=== PATIENT | male | born 1995 | race African-American/Black ===

== ENCOUNTER 2016-09-25 13:32 | Inpatient (IN) | payer BC, OTHER ==
[~2016-09-25] VITALS: Ht 180.3 cm; Wt 68.3 kg
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
[2016-09-25 15:30] LABS: BASO % 0.1 %; BASO ABS # 0.01 K/uL (0-0.2); COMPLETE YES; EOS % 0.1 %; HEMATOCRIT 43.7 % (42-52); IG% 0.1 %; LYMPH % 10.8 %; LYMPH ABS # 0.86 K/uL (1.2-3.4); MEAN CELL VOLUME 89.2 fL (80-100); MEAN CORPUSCULAR HEMOGLOBIN 32.4 pg (25-34); MEAN CORPUSCULAR HGB CONC 36.4 g/dl (32-36); MEAN PLATELET VOLUME 10.9 fL (7.4-10.4); MONO % 8.2 %; NEUT % 80.7 %; PLATELET COUNT 232 K/uL (130-400); WHITE BLOOD COUNT 7.97 K/uL (4.8-10.8)
[2016-09-25 15:40] LABS: ACETAMINOPHEN < 2 ug/ml (10-30)
[2016-09-25 15:44] LABS: BUN/CREATININE RATIO 13.6 (10-20); CALCIUM 9.2 mg/dl (8.5-10.1); CREATININE 0.75 mg/dl (0.60-1.40)
[2016-09-25 15:54] LABS: ALB/GLOB RATIO 1.4 (0.9-2); THYROID STIMULATING HORMONE 0.727 uIu/ml (0.300-4.500)
[2016-09-25 18:00] LABS: BENZODIAZEPINE, URINE NEG (NEG); COCAINE,URINE NEG (NEG); PHENCYCLIDINE, URINE NEG (NEG)
[2016-09-25] MEDS ORDERED: MAGNESIUM HYDROXIDE SUSP 30 ML UDC PO PRN (20:00)
[2016-09-25] MEDS ORDERED: SODIUM CHLORIDE 0.65% NA SOLN 45 ML (OCEAN) PRN (20:00)
[2016-09-25] MEDS ORDERED: BISMUTH SUBSALICYLATE PER ML OMNICELL CHARGE PO PRN (20:00)
[2016-09-25] MEDS ORDERED: HALOPERIDOL 1 MG TAB PO PRN (20:00)
[2016-09-25] MEDS ORDERED: ALUMINUM/MAGNESIUM SUSP 30 ML UDC PO PRN (20:00)
[2016-09-25] MEDS ORDERED: hydrOXYzine HCL 25 MG TAB PO PRN ×2 (20:00)
[2016-09-25] MEDS ORDERED: ACETAMINOPHEN 325 MG TAB PO PRN (20:00)
[2016-09-25 20:32] VITALS: O2SAT 98
[2016-09-25 21:10] VITALS: BP 125/82; PULSE 90; TEMP 36.8; Ht 180.3 cm; Wt 68.3 kg
[2016-09-26 07:10] VITALS: BP_SYST 128; BP_SYST 132; BP_DIAS 75; BP_DIAS 84; PULSE 83; PULSE 95; TEMP 37.1
[2016-09-26] MEDS ORDERED: INFLUENZA VIRUS QUAD VACCINE 0.5 ML SYR IM. ONE (08:00)
[2016-09-26] MEDS ORDERED: INFLUENZA ADMINISTRATION CHARGE ONE (08:00)
[2016-09-26] MEDS ORDERED: BENZTROPINE MESYLATE 0.5 MG TAB PO PRN (09:15)
[2016-09-26] MEDS ORDERED: HALOPERIDOL 5 MG TAB ONE (09:26)
[2016-09-26] MEDS ORDERED: LORAZEPAM 2 MG TAB ONE (09:26)
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
[2016-09-26] MEDS: LORAZEPAM 2 MG TAB PO PRN (20:12)
[2016-09-26] MEDS: HALOPERIDOL 5 MG TAB PO PRN (20:12)
[2016-09-26] MEDS: RISPERIDONE ODT 1MG PO SCH (21:35)
[2016-09-27 06:09] LABS: CHOLESTEROL/HDL RATIO 2.2
[2016-09-27 07:00] VITALS: BP_SYST 104; BP_SYST 124; BP_DIAS 62; BP_DIAS 66; PULSE 111; PULSE 90; TEMP 36.6
--- NOTE | 2016-09-27 10:55 | Psychiatric Progress Notes ---
Progress Note Date of Service Sep 27, 2016. Interval History 21 yo male with first episode psychosis admit on 09/25/16 on 201 commitment. Chief Complaint "I don't want to talk right now". Subjective Patient was seen & assessed interval progress reviewed with nursing. Slept much of day yesterday following prns. Did take M tab last pm. Denies questions about it. Some drooling noted on pillow this am due to sedation. Was OOB with staff encouragement to eat dinner but required prompts to continue eating. Review of Systems Psych: denies symptoms other than stated above Constitutional: sedation Cardiovascular: denied GI: denied Neurologic: denied Remainder of 10 body systems also reviewed and denied other than noted above. Sleep Information Total Hours of Sleep: 7.00 Meal Information Percent of Breakfast Consumed: 0 Percent of Lunch Consumed: 0 Percent of Dinner Consumed: 0 Mental Status Exam During interview pt is: guarded Appearance: disheveled Eye contact is: poor Motor behavior is: psychomotor agitation Speech: other (non spontaneous) Affect: blunted Mood is: other (unable to describe) Thought process: blocking Thought content: paranoid Suicidal thought are: denied Homicidal thoughts are: denied Hallucinations: denies auditory, denies visual Cognition: other (impaired due to psychosis) Insight: severely impaired Judgement: severely impaired Impression 21 yo male with 1st episode psychosis, he is currently unable to care for himself outside of the hospital and acting out aggressively due to paranoia. He requires a medically necessary private room due to severity of psychosis and paranoia. Plan (1) Brief psychotic disorder prn Haldol and Ativan PO for acute calming effect will offer Risperdal 2 mg M tab tonight and further discuss risks/benefits/ alternatives when patient able to process. Not appropriate for visitors today. 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) Needs: outpatient treatment, antipsychotic medication Risk Factors Assessment Male: Yes /single/: Yes Mental Health Diagnoses: Yes Substance use disorders: No Previous attempt: No Family history of suicide: No Previous psychiatric stay: No Smoker: No Protective Factors Assessment Supportive family: Yes Data Vital Signs Last 24 Hrs: Date Time Temp Pulse Resp B/P Pulse Ox O2 Delivery O2 Flow Rate FiO2 09/27/16 07:00 36.6 90 18 104/66 111 124/62 Meds Administered Last 24 Hrs: Meds Administered (Past 24Hrs) Medications (Trade) Dose Ordered Sig/Gallito Route Start Time Stop Time Status Last Admin Dose Admin Haloperidol (Haldol Tab) 2 mg Q6 PRN PO 09/25/16 20:00 09/26/16 09:06 DC 09/26/16 08:43 2 MG Haloperidol (Haldol Tab) 5 mg Q6 PRN PO 09/26/16 09:15 10/26/16 09:14 09/26/16 20:12 5 MG Lorazepam (Ativan Tab) 2 mg Q6 PRN PO 09/26/16 09:15 10/26/16 09:14 09/26/16 20:12 2 MG Risperidone (Risperdal M Tab) 2 mg HS PO 09/26/16 22:00 10/26/16 21:59 09/26/16 21:35 2 MG Haloperidol (Haldol Tab) 5 mg STK-MED ONCE .ROUTE 09/26/16 09:26 09/26/16 09:27 DC 09/26/16 09:27 5 MG Lorazepam (Ativan Tab) 2 mg STK-MED ONCE .ROUTE 09/26/16 09:26 09/26/16 09:27 DC 09/26/16 09:27 2 MG Lab Results Last 24 Hrs: Last 24 Hours Test 09/27/16 05:30 Fasting Glucose 88 mg/dl Triglycerides Level 47 mg/dl Cholesterol Level 126 mg/dl HDL Cholesterol 58 mg/dl LDL Cholesterol, Calculated 59 mg/dl VLDL Cholesterol, Calculated 9 mg/dl Cholesterol/HDL Ratio 2.2
[2016-09-27] MEDS: RISPERIDONE ODT 1MG PO SCH (21:17)
[2016-09-28 07:02] VITALS: BP_SYST 111; BP_SYST 123; BP_DIAS 76; BP_DIAS 81; PULSE 88; PULSE 96; TEMP 36.6
--- NOTE | 2016-09-28 11:35 | Psychiatric Progress Notes ---
Progress Note Date of Service Sep 28, 2016. Interval History 21 yo male with first episode psychosis admit on 09/25/16 on 201 commitment. Chief Complaint "I was distancing myself from my mother". Subjective Patient was seen & assessed interval progress reviewed with Treatment Team. Still reports seeing a "Dr. Clements" for therapy on [facility] or [facility]. Alludes to wanting to avoid mother as "probably evil", seemingly no memory of her coming to his apartment. Nonspecific paranoia re: coworkers--didn't want to go to holiday republican so stopped going to work. Sleep remains improved. He can interact briefly with staff but soon after is talking with himself in his room. 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 Also remains perseverative on grandmother's though now able to relate that she when he was 8 yo. Did attend group briefly. minimal dry mouth this am, taking PO. Appears less sedated and less restless than previously. Isn't really able to relate social relationships keeping him in [employer], avoidant of [place]. Review of Systems Psych: denies symptoms other than stated above Constitutional: denied Cardiovascular: denied GI: denied Neurologic: denied Sleep Information Total Hours of Sleep: 4.75 Meal Information Percent of Breakfast Consumed: 100 Percent of Lunch Consumed: 100 Percent of Dinner Consumed: 50 Mental Status Exam During interview pt is: cooperative (superficially) Appearance: disheveled Eye contact is: poor Motor behavior is: no abnormal motor movements (but still a bit restless) Speech: other (somewhat rambling, not pressured) Affect: blunted Mood is: other ("calmer now") Thought process: tangential Thought content: paranoid, delusions (re: family wanting to do him harm somehow ) Suicidal thought are: denied Homicidal thoughts are: denied Hallucinations: denies auditory, denies visual Cognition: other (impaired due to psychosis) Insight: severely impaired Judgement: severely impaired Impression 21 yo male with 1st episode psychosis, he is currently unable to care for himself outside of the hospital and acting out aggressively due to paranoia. He requires a medically necessary private room due to severity of psychosis and paranoia. Plan (1) Brief psychotic disorder jerzy Navarrete and Ativan PO for acute calming effect will offer Risperdal 2 mg M tab tonight and further discuss risks/benefits/ alternatives when patient able to process. Not appropriate for visitors today. 09/27/16--is sleeping, no longer hyperverbal, need to monitor for excessive sedation, may need to taper Risperdal to 1 mg qhs tomorrow 09/28/16--improving on Risperdal 2 mg, likes M tab formulation, reviewed metabolic screening labs. Reviewed indication with patient, he lacks understanding of his condition and is just starting to recover. No abnormal motor movements/EPS/akathisia. Baseline AIMS=0. Need to confirm outpatient provider and address family session to reality orient, patient unable to tolerate today due to ongoing psychosis. 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) Needs: outpatient treatment, antipsychotic medication Risk Factors Assessment Male: Yes /single/: Yes Mental Health Diagnoses: Yes Substance use disorders: No Previous attempt: No Family history of suicide: No Previous psychiatric stay: No Smoker: No Protective Factors Assessment Supportive family: Yes Data Vital Signs Last 24 Hrs: Date Time Temp Pulse Resp B/P Pulse Ox O2 Delivery O2 Flow Rate FiO2 09/28/16 07:02 36.6 88 16 111/81 96 123/76 Meds Administered Last 24 Hrs: Meds Administered (Past 24Hrs) Medications (Trade) Dose Ordered Sig/Gallito Route Start Time Stop Time Status Last Admin Dose Admin Risperidone (Risperdal M Tab) 2 mg HS PO 09/26/16 22:00 10/26/16 21:59 09/27/16 21:17 2 MG
[2016-09-28] MEDS: LORAZEPAM 2 MG TAB PO PRN (13:24)
[2016-09-28] MEDS: HALOPERIDOL 5 MG TAB PO PRN (13:24)
[2016-09-28] MEDS: RISPERIDONE ODT 1MG PO SCH (20:51)
[2016-09-29 06:53] VITALS: BP_SYST 124; BP_SYST 132; BP_DIAS 83; BP_DIAS 84; PULSE 65; PULSE 89; TEMP 36.5
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
[2016-09-29] MEDS: HALOPERIDOL 5 MG TAB PO PRN (10:44)
[2016-09-29] MEDS: LORAZEPAM 2 MG TAB PO PRN (10:44)
[2016-09-29] MEDS: RISPERIDONE ODT 1MG PO SCH (22:00)
[2016-09-30 06:36] VITALS: BP_SYST 103; BP_SYST 95; BP_DIAS 57; BP_DIAS 64; PULSE 85; PULSE 87; TEMP 36.9
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
[2016-09-30] MEDS ORDERED: NURSING VERBAL MED ORDER ONE (18:00)
[2016-09-30] MEDS ORDERED: LORAZEPAM 1 MG TAB PO PRN ×2 (18:15→18:30)
[2016-09-30] MEDS: RISPERIDONE ODT 1MG PO SCH (18:47)
[2016-10-01 06:39] VITALS: BP_SYST 126; BP_SYST 131; BP_DIAS 86; BP_DIAS 98; PULSE 88; PULSE 92; TEMP 36.7
[2016-10-01] MEDS ORDERED: RISPERIDONE ODT 0.5MG PO PRN (08:30)
--- NOTE | 2016-10-01 08:36 | Psychiatric Progress Notes ---
Progress Note Date of Service Oct 01, 2016. Interval History 21 yo male with first episode psychosis admit on 09/25/16 on a voluntary 201 commitment. He has submitted a 72 hour notice requesting to withdraw from treatment, and is refusing medication. Chief Complaint "I'm doing okay". Subjective Patient was seen & assessed interval progress reviewed with Treatment Team. Staff report he continues to respond to internal stimuli, talking and laughing inappropriately to himself, although he minimizes this when staff intervene. He continues to try to exit the unit, going to the doors when visitors come in. He continues to express paranoia about his mother and a male peer, whom he says he gets "bad vibes" from. He refused to attend groups yesterday, and at times refuses medication. He did take Risperdal last night with staff encouragement. He spoke to his father on the phone and a meeting with him was scheduled for Wednesday. Today he continues to refuse to rescind his 72 hour notice, saying he wants to leave. He says he will return to his apartment, but his roommate is out of town, and doesn't think he can return to work yet as "I still need to work some things out in my head." He says he prefers to do this "alone," then says he doesn't like to always be thinking about things alone. He continues to say he sees a therapist at [facility] [place] [place] who does not [place]. He does not want to have any contact with his mother and continues to blame her for his admission, saying she "just showed up, wasn't expecting her," but can't explain how that led to him being admitted to the hospital. He continues to focus on his belief that he is "an adult, so I can take care of myself." He says he will try to go to groups today, but feels "really bizarre, like cabin fever." He talks about a peer whom he believes has "bad energy, a bad vibe." He denies thoughts of harming himself or anyone else, but cannot describe how he would provide for his own basic needs outside the hospital, other than to say "I just need to process things on my own." Sleep Information Total Hours of Sleep: 6.25 Meal Information Percent of Breakfast Consumed: 100 Percent of Lunch Consumed: 90 Percent of Dinner Consumed: 25 Mental Status Exam During interview pt is: cooperative (superficially, answers are vague and brief ) Appearance: appropriately dressed Eye contact is: fair Motor behavior is: no abnormal motor movements Speech: normal in rate, rhythm & volume Affect: blunted Mood is: other ("okay") Thought process: tangential, looseness of associations, other (vague ansqwers to questions) Thought content: paranoid, delusions (that mother and male peer are evil, use magic) Suicidal thought are: denied Homicidal thoughts are: denied Hallucinations: denies auditory ( but appears to be responding to internal stimuli, talking and laughing to himself.), denies visual Cognition: other (impaired due to psychosis) Insight: severely impaired Judgement: severely impaired Impression The patient is adjusting to the support and structure of the milieu. His mood is good, but minimizing recent paranoia and psychosis. Required prn Haldol and Ativan, and refusing scheduled Risperdal. Unable to tolerate phone meeting with mother; will attempt to get supplemental information from sister and ? therapist (unclear if he really has a therapist or not). Will continue to gather information toward the need for further inpatient care as he has submitted a 72 hr notice to leave treatment. We are concerned that he remains psychotic and may need a longer hospitalization. Continued Inpatient Care The patient continues to require inpatient care due to the severity of his condition and inability to manipulate information in a reality based manner. Plan (1) Brief psychotic disorder prn Haldol and Ativan PO for acute calming effect will offer Risperdal 2 mg M tab tonight and further discuss risks/benefits/ alternatives when patient able to process. Not appropriate for visitors today. 09/27/16--is sleeping, no longer hyperverbal, need to monitor for excessive sedation, may need to taper Risperdal to 1 mg qhs tomorrow 09/28/16--improving on Risperdal 2 mg, likes M tab formulation, reviewed metabolic screening labs. Reviewed indication with patient, he lacks understanding of his condition and is just starting to recover. No abnormal motor movements/EPS/akathisia. Baseline AIMS=0. Need to confirm outpatient provider and address family session to reality orient, patient unable to tolerate today due to ongoing psychosis. 09/29 - Continue current meds - Obtain supplemental information from family - Has submitted a 72 hr notice. Will need to determine need for 302 by at 1330. 09/30 - Refusing Risperdal, but getting prn Haldol and Ativan daily. - Attempt to get collateral from sister and ?therapist. - Mother states this is an acute change from baseline, concerned that he cannot live independently, but he is refusing contact with mother or suggestions to move home - Social work attempting to clarify if he actually has a therapist, as he insists he does, but the person he states he sees cannot be located and doesn't work at the practice he claims she does 10/01 - Refusing groups, sometimes refusing medication, and refusing contact with mother. 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) Needs: outpatient treatment, antipsychotic medication Risk Factors Assessment Male: Yes /single/: Yes Mental Health Diagnoses: Yes Substance use disorders: No Previous attempt: No Family history of suicide: No Previous psychiatric stay: No Smoker: No Protective Factors Assessment Supportive family: Yes Data Vital Signs Last 24 Hrs: Date Time Temp Pulse Resp B/P Pulse Ox O2 Delivery O2 Flow Rate FiO2 10/01/16 06:39 36.7 92 16 131/98 88 126/86 Meds Administered Last 24 Hrs: Meds Administered (Past 24Hrs) Medications (Trade) Dose Ordered Sig/Gallito Route Start Time Stop Time Status Last Admin Dose Admin Lorazepam (Ativan Tab) 1 mg NOW PRN PO 09/30/16 18:30 09/30/16 18:47 DC 09/30/16 18:47 1 MG
[2016-10-01] MEDS: LORAZEPAM 2 MG TAB PO PRN (13:26)
[2016-10-01] MEDS: HALOPERIDOL 5 MG TAB PO PRN (13:26)
[2016-10-01] MEDS: RISPERIDONE ODT 1MG PO SCH (20:48)
[2016-10-02 06:53] VITALS: BP_SYST 105; BP_SYST 110; BP_DIAS 64; PULSE 62; PULSE 91; TEMP 36.5
--- NOTE | 2016-10-02 14:03 | Psychiatric Progress Notes ---
Progress Note Date of Service Oct 02, 2016. Interval History 21 yo male with first episode psychosis admit on 09/25/16 on a voluntary 201 commitment. He has submitted a 72 hour notice requesting to withdraw from treatment and is currently on a 302 commitment. Chief Complaint "I still want to leave". Subjective Patient was seen & assessed interval progress reviewed with treatment team. Discussed family meeting with social work. Patient seen with his father with his permission/at his request. Continues to have periods of restlessness and paranoia in the afternoons predominately requiring prn Ativan/Haldol yesterday. Ambivalent re: living situation. Reviewed medications with father who supports ongoing inpatient hospitalization as not back to baseline and patient continues to lack insight into his condition. Review of Systems Psych: denies symptoms other than stated above Constitutional: denied Cardiovascular: denied GI: denied Neurologic: denied Remainder of 10 body systems also reviewed and denied other than noted above. Sleep Information Total Hours of Sleep: 7.25 Meal Information Percent of Breakfast Consumed: 100 Percent of Lunch Consumed: 100 Percent of Dinner Consumed: 100 Mental Status Exam During interview pt is: cooperative (superficially, answers are vague and brief ) Appearance: appropriately dressed Eye contact is: poor Motor behavior is: psychomotor agitation (pacing/hand flap) Speech: other (non spontaneous) Affect: blunted Mood is: anxious Thought process: tangential, looseness of associations, other (vague ansqwers to questions) Thought content: paranoid Suicidal thought are: denied Homicidal thoughts are: denied Hallucinations: denies auditory ( but appears to be responding to internal stimuli, talking and laughing to himself.), denies visual Cognition: other (impaired due to psychosis) Insight: severely impaired Judgement: severely impaired Impression The patient is adjusting to the support and structure of the milieu. His mood is good, but minimizing recent paranoia and psychosis. Required prn Haldol and Ativan, and refusing scheduled Risperdal earlier in stay. On 302 commitment as submitted 72 hour notice. Continued Inpatient Care The patient continues to require inpatient care due to the severity of his condition and inability to manipulate information in a reality based manner. Plan (1) Brief psychotic disorder prn Haldol and Ativan PO for acute calming effect will offer Risperdal 2 mg M tab tonight and further discuss risks/benefits/ alternatives when patient able to process. Not appropriate for visitors today. 12/25/16--is sleeping, no longer hyperverbal, need to monitor for excessive sedation, may need to taper Risperdal to 1 mg qhs tomorrow 09/28/16--improving on Risperdal 2 mg, likes M tab formulation, reviewed metabolic screening labs. Reviewed indication with patient, he lacks understanding of his condition and is just starting to recover. No abnormal motor movements/EPS/akathisia. Baseline AIMS=0. Need to confirm outpatient provider and address family session to reality orient, patient unable to tolerate today due to ongoing psychosis. 09/29 - Continue current meds - Obtain supplemental information from family - Has submitted a 72 hr notice. Will need to determine need for 302 by at 1330. 09/30 - Refusing Risperdal, but getting prn Haldol and Ativan daily. - Attempt to get collateral from sister and ?therapist. - Mother states this is an acute change from baseline, concerned that he cannot live independently, but he is refusing contact with mother or suggestions to move home - Social work attempting to clarify if he actually has a therapist, as he insists he does, but the person he states he sees cannot be located and doesn't work at the practice he claims she does 10/01 - Refusing groups, sometimes refusing medication, and refusing contact with mother. Did agree to a meeting with father scheduled for 10/02 - Continue risperidone 2mg qhs and prns - Placed on 302 commitment as refused to rescind 72 hour notice and remains psychotic, cannot give reasonable plan for meeting basic needs outside hospital , saying he can't work due to his thoughts being disorganized 10/02 303 petition given weekend and county closed 10/05/15, currently scheduled 9:45 on 10/06/16; titrate Risperdal by adding 1 mg am dose. 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) Needs: outpatient treatment, antipsychotic medication Risk Factors Assessment Male: Yes /single/: Yes Mental Health Diagnoses: Yes Substance use disorders: No Previous attempt: No Family history of suicide: No Previous psychiatric stay: No Smoker: No Protective Factors Assessment Supportive family: Yes Data Vital Signs Last 24 Hrs: Date Time Temp Pulse Resp B/P Pulse Ox O2 Delivery O2 Flow Rate FiO2 10/02/16 06:53 36.5 62 14 105/64 91 110/64 Meds Administered Last 24 Hrs: Meds Administered (Past 24Hrs) Medications (Trade) Dose Ordered Sig/Gallito Route Start Time Stop Time Status Last Admin Dose Admin Lorazepam (Ativan Tab) 1 mg NOW PRN PO 09/30/16 18:30 09/30/16 18:47 DC 09/30/16 18:47 1 MG
[2016-10-02] MEDS: RISPERIDONE ODT 1MG PO SCH (21:12)
[2016-10-03 06:58] VITALS: BP_SYST 100; BP_SYST 87; BP_DIAS 54; BP_DIAS 60; PULSE 88; PULSE 94; TEMP 36.6
[2016-10-03] MEDS: RISPERIDONE ODT 1MG PO SCH ×2 (09:28→21:38)
--- NOTE | 2016-10-03 11:41 | Psychiatric Progress Notes ---
Progress Note Date of Service Oct 03, 2016. Interval History 21 yo male with first episode psychosis admit on 09/25/16 on a voluntary 201 commitment. He had submitted a 72 hour notice requesting to withdraw from treatment and iwas placed on a 302 commitment. 303 hearing is scheduled for at 0945. Chief Complaint "I feel great". Subjective Patient was seen & assessed interval progress reviewed with nursing staff, and chart reviewed. Patient was attending group and joined this provider at provider's request to meet and discuss how he is doing. He reports he is "great,...I have problems,...we all have problems....I am working on my demons with my family....well my former family...well except for my Dad" When asked what kinds of problems he states "I don't have problems" and is somewhat diffuse, vague and at times illogical with his thoughts today. He reports he is not sleeping well "up and down" He denies SE from the medications denying EPS or dystonia or GAMEZ, dry mouth. When asked about orthostasis he stands up to see and states "no" but then remains standing while talking for several minutes. He eventually states "oh, I guess I can sit now" He denies feeling paranoid, but then states "I feel the universe is against me" He looks off to the side abruptly as if he sees something and then continues to stare off looking in that same direction making a circular motion with his head, and when provider asks what he is looking at he states "nothing, just processing" He states the circular head motion has been recent (prior to hospital per his report) and states "it helps me process" He denies other physical concerns, and states he is willing to continue on medication. He states he plans to live in his apartment after discharge but has no ability to concretely address or recognize his symptoms that lead to hospital stay nor how he would better care for himself. Review of Systems Denies physical concerns, and psychiatric concerns noted above. He denies SI/HI , intention or plan. Sleep Information Total Hours of Sleep: 4.50 Meal Information Percent of Breakfast Consumed: 100 Percent of Lunch Consumed: 100 Percent of Dinner Consumed: 90 Mental Status Exam During interview pt is: cooperative (superficially, answers are vague and brief ) Appearance: appropriately dressed Eye contact is: poor Motor behavior is: psychomotor agitation (standing inappropriately maintaining , he raises his hand in a sterotypic but illogical movement and holds it there for a time, circular head motion) Speech: other (non spontaneous) Affect: blunted Mood is: other ("great" which is incongruent with his blunted affect) Thought process: tangential, looseness of associations, other (vague ansqwers to questions, inabilty to expound and give details such as how he would care for himself) Thought content: paranoid Suicidal thought are: denied Homicidal thoughts are: denied Hallucinations: denies auditory ( but appears to be responding to internal stimuli), denies visual Cognition: other (impaired due to psychosis) Insight: severely impaired Judgement: severely impaired Impression The patient is adjusting to the support and structure of the milieu. His mood is good, but minimizing recent paranoia and psychosis. Required prn Haldol and Ativan, and refusing scheduled Risperdal earlier in stay but now taking. On 302 commitment as submitted 72 hour notice. 303 hearing 10/06/16 at 0945 Continued Inpatient Care The patient continues to require inpatient care due to the severity of his condition and inability to manipulate information in a reality based manner. Plan (1) Brief psychotic disorder prn Haldol and Ativan PO for acute calming effect will offer Risperdal 2 mg M tab tonight and further discuss risks/benefits/ alternatives when patient able to process. Not appropriate for visitors today. 09/27/16--is sleeping, no longer hyperverbal, need to monitor for excessive sedation, may need to taper Risperdal to 1 mg qhs tomorrow 09/28/16--improving on Risperdal 2 mg, likes M tab formulation, reviewed metabolic screening labs. Reviewed indication with patient, he lacks understanding of his condition and is just starting to recover. No abnormal motor movements/EPS/akathisia. Baseline AIMS=0. Need to confirm outpatient provider and address family session to reality orient, patient unable to tolerate today due to ongoing psychosis. 09/29 - Continue current meds - Obtain supplemental information from family - Has submitted a 72 hr notice. Will need to determine need for 302 by at 1330. 09/30 - Refusing Risperdal, but getting prn Haldol and Ativan daily. - Attempt to get collateral from sister and ?therapist. - Mother states this is an acute change from baseline, concerned that he cannot live independently, but he is refusing contact with mother or suggestions to move home - Social work attempting to clarify if he actually has a therapist, as he insists he does, but the person he states he sees cannot be located and doesn't work at the practice he claims she does 10/01 - Refusing groups, sometimes refusing medication, and refusing contact with mother. Did agree to a meeting with father scheduled for 10/02 - Continue risperidone 2mg qhs and prns - Placed on 302 commitment as refused to rescind 72 hour notice and remains psychotic, cannot give reasonable plan for meeting basic needs outside hospital , saying he can't work due to his thoughts being disorganized 10/02 303 petition given weekend and county closed 10/05/15, currently scheduled 9:45 on 10/06/16; titrate Risperdal continuing 2mg/hs dose and by adding 1 mg am dose. 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
[2016-10-03 17:32] LABS: SYNTHETIC CANNABINOIDS QL URIN NEGATIVE (Negative)
[2016-10-04 06:57] VITALS: BP_SYST 119; BP_SYST 123; BP_DIAS 75; BP_DIAS 76; PULSE 78; PULSE 92; TEMP 36.4
[2016-10-04] MEDS: RISPERIDONE ODT 1MG PO SCH ×2 (08:53→21:36)
--- NOTE | 2016-10-04 09:32 | Psychiatric Progress Notes ---
Progress Note Date of Service Oct 04, 2016. Interval History 21 yo male with first episode psychosis admit on 09/25/16 on a voluntary 201 commitment. He had submitted a 72 hour notice requesting to withdraw from treatment and iwas placed on a 302 commitment. 303 hearing is scheduled for at 0945. Chief Complaint "a little better". Subjective Patient was seen & assessed interval progress reviewed with Nursing staff and chart reveiwed. He was sad yesterday noting in group that he is sad that he has spent all the holidays alone. He is going to group. He is eating out of his room. THis AM he was grossly psychotic laughing to himself and flapping his hand by himself. Met with patient this AM and noted today he is pretty drowsy on the medication. He states he was just "doing a dance" this Am when he was laughing to himself but has limited insight or ability to explain further. He states he is getting bad vibes from two other patients on the unit at this time and feels he has to retreat to his room to cope. He continues to believe that he is here because of "Chad" and that he was fine prior to her arrival at his door the day of his admission. He has no insight to his behaviors that may have contributed to his admission. He denies thoughts to hurt himself or others. States he wants to leave and go to his apartment and will get a job to pay his rent but limited ability to give further insight or details to self-support and why he was not able to function prior to admission and what has changed. He denies AVH, he denies TI/TB, he denies stifness or akathesia. Review of Systems As above in HPI o/w denies symptoms on ROS Sleep Information Total Hours of Sleep: 4.50 Meal Information Percent of Breakfast Consumed: 100 Percent of Lunch Consumed: 100 Percent of Dinner Consumed: 100 Mental Status Exam During interview pt is: cooperative (superficially, answers are vague and brief ) Appearance: appropriately dressed Eye contact is: poor Motor behavior is: psychomotor agitation (circular head motion after provider asks about his dayroom laughter and movement, then stops after 5-10seconds o/w unremarkable) Speech: other (non spontaneous) Affect: flat Mood is: other ("great" which is incongruent with his blunted affect) Thought process: tangential, looseness of associations, other (IOR about bad vibes and evil from other patients) Thought content: paranoid Suicidal thought are: denied Homicidal thoughts are: denied Hallucinations: denies auditory ( but appears to be responding to internal stimuli), denies visual Cognition: other (impaired due to psychosis) Insight: severely impaired Judgement: severely impaired Impression The patient is adjusting to the support and structure of the milieu. His mood is good, but minimizing recent paranoia and psychosis. Required prn Haldol and Ativan, and refusing scheduled Risperdal earlier in stay but now taking. On 302 commitment as submitted 72 hour notice. 303 hearing 10/06/16 at 0945 Continued Inpatient Care The patient continues to require inpatient care due to the severity of his condition and inability to manipulate information in a reality based manner. Plan (1) Brief psychotic disorder prn Haldol and Ativan PO for acute calming effect will offer Risperdal 2 mg M tab tonight and further discuss risks/benefits/ alternatives when patient able to process. Not appropriate for visitors today. 09/27/16--is sleeping, no longer hyperverbal, need to monitor for excessive sedation, may need to taper Risperdal to 1 mg qhs tomorrow 09/28/16--improving on Risperdal 2 mg, likes M tab formulation, reviewed metabolic screening labs. Reviewed indication with patient, he lacks understanding of his condition and is just starting to recover. No abnormal motor movements/EPS/akathisia. Baseline AIMS=0. Need to confirm outpatient provider and address family session to reality orient, patient unable to tolerate today due to ongoing psychosis. 09/29 - Continue current meds - Obtain supplemental information from family - Has submitted a 72 hr notice. Will need to determine need for 302 by at 1330. 09/30 - Refusing Risperdal, but getting prn Haldol and Ativan daily. - Attempt to get collateral from sister and ?therapist. - Mother states this is an acute change from baseline, concerned that he cannot live independently, but he is refusing contact with mother or suggestions to move home - Social work attempting to clarify if he actually has a therapist, as he insists he does, but the person he states he sees cannot be located and doesn't work at the practice he claims she does 10/01 - Refusing groups, sometimes refusing medication, and refusing contact with mother. Did agree to a meeting with father scheduled for 10/02 - Continue risperidone 2mg qhs and prns - Placed on 302 commitment as refused to rescind 72 hour notice and remains psychotic, cannot give reasonable plan for meeting basic needs outside hospital , saying he can't work due to his thoughts being disorganized 10/02 303 petition given weekend and county closed 10/05/15, currently scheduled 9:45 on 10/06/16; titrate Risperdal continuing 2mg/hs dose and by adding 1 mg am dose. 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) Needs: outpatient treatment, antipsychotic medication Risk Factors Assessment Male: Yes /single/: Yes Mental Health Diagnoses: Yes Substance use disorders: No Previous attempt: No Family history of suicide: No Previous psychiatric stay: No Smoker: No Protective Factors Assessment Supportive family: Yes Data Vital Signs Last 24 Hrs: Date Time Temp Pulse Resp B/P Pulse Ox O2 Delivery O2 Flow Rate FiO2 10/04/16 06:57 36.4 78 16 119/76 92 123/75 Meds Administered Last 24 Hrs: Meds Administered (Past 24Hrs) Medications (Trade) Dose Ordered Sig/Gallito Route Start Time Stop Time Status Last Admin Dose Admin Risperidone (Risperdal M Tab) 1 mg QAM PO 10/03/16 09:00 11/02/16 08:59 10/04/16 08:53 1 MG
[2016-10-05 07:04] VITALS: BP_SYST 103; BP_SYST 96; BP_DIAS 63; BP_DIAS 65; PULSE 58; PULSE 60; TEMP 36.3
[2016-10-05] MEDS: RISPERIDONE ODT 1MG PO SCH ×2 (08:50→21:48)
--- NOTE | 2016-10-05 09:32 | Psychiatric Progress Notes ---
Progress Note Date of Service Oct 05, 2016. Interval History 21 yo male with first episode psychosis admit on 09/25/16 on a voluntary 201 commitment. He had submitted a 72 hour notice requesting to withdraw from treatment and was placed on a 302 commitment due to ongoing psychosis, hallucinations, confusion, and inability to care for himself outside the hospital. 303 hearing is scheduled for 10/06/16 at 0945. Chief Complaint "Tired, just want to leave". Subjective Patient was seen & assessed interval progress reviewed with Treatment Team. Staff report he remains psychotic, responding to internal stimuli, laughing and talking to himself, and makes bizarre gestures. He has been coming out of his room for meals, which is an improvement. Today he says he is irritated that he is in the hospital and wants to leave, as he feels worse here, and just wants to go back to his apartment and "rest." He continues to blame his mother for his admission, "it's all her fault, I was fine until she showed up." He contradicts himself, then saying he had not been going to work for weeks before she came to check on him, and had destroyed his iphone and ipod in fits of anger , smashing them. He cannot explain why he did this, but says "well maybe you're right, maybe I do need to be here." He says he was "working through some stuff, " but cannot further explain why he wasn't going to work or why he destroyed his electronics. He repeatedly returns to the topic of his mother, saying she is "evil, bad energy, bad vibes." and "she has been controlling me using black magic my whole life, and I think she conspired to murder my grandmother." When asked why he thinks this, he says "well she as pretty young to ." He continues to relate his inability to go to work to his grandmother's , saying he was "reminded" of it, even though it happened 13 years ago. He had told his father when he came in for a meeting that he agreed returning to live with his mother in [place] was his best option, but today says "there is no way I'm going back there, it's out of the question." He admits he hasn't been going to work for about a month, and isn't sure if he has a job anymore. 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 He admits he hasn't paid his rent, and his mother usually pays at least part of his rent, but then says he "is an adult and can take care of myself," although doesn't know how he will pay his rent. He is upset that he doesn't like his bed here, "I asked about a new bed, but they won't give me one." He repeatedly demands to leave, "I need fresh air." Reviewed goals to work on for discharge, including a plan for how he will live, where he will live, how he will get food and medicine/healthcare. He admits he was not really in therapy as he'd previously stated, saying he thought he was, but it wasn't real. He remains paranoid and guarded, saying he doesn't want to talk about his feelings and suspicions about his mother because "you don't understand." Sleep Information Total Hours of Sleep: 4.50 Meal Information Percent of Breakfast Consumed: 100 Percent of Lunch Consumed: 100 Percent of Dinner Consumed: 85 Mental Status Exam During interview pt is: cooperative (superficially, answers are vague ) Appearance: appropriately dressed, other (lying in bed with hernandez pulled up and covers pulled up, keeps eyes closed or arm over eyes) Eye contact is: poor Motor behavior is: no abnormal motor movements Speech: other (hyperverbal, interrupts at times) Affect: irritable Mood is: other ("fine," incogruent with affect) Thought process: tangential, looseness of associations, other (IOR about bad vibes and evil from other patients and mother) Thought content: preoccupation (with mother being to blame for his symptoms and hospitalization), paranoid, delusions (persecution - thinks mother uses black magic to control him and that she conspired to murder his grandmother) Suicidal thought are: denied Homicidal thoughts are: denied Hallucinations: denies auditory ( but appears to be responding to internal stimuli), denies visual Cognition: other (impaired due to psychosis) Insight: severely impaired Judgement: severely impaired Medication Trials (1) Past Psych Meds None Last Edited By: Victoria Beavers on Oct 05, 2016 10:56 Impression The patient is adjusting to the support and structure of the milieu. His mood is good, but minimizing recent paranoia and psychosis. Required prn Haldol and Ativan, and refusing scheduled Risperdal earlier in stay, but now taking. On 302 commitment as submitted 72 hour notice, with 303 hearing 10/06/16, as he remains disorganized, responding to internal stimuli, hallucinating, paranoid, with delusions that mother is using black magic to control him and conspired to murder his grandmother. Unable to work, support himself, but refusing to move in with mother, which is his only other option. Continued Inpatient Care The patient continues to require inpatient care due to the severity of his condition and inability to manipulate information in a reality based manner. Plan (1) Psychotic disorder prn Haldol and Ativan PO for acute calming effect will offer Risperdal 2 mg M tab tonight and further discuss risks/benefits/ alternatives when patient able to process. Not appropriate for visitors today. 09/27/16--is sleeping, no longer hyperverbal, need to monitor for excessive sedation, may need to taper Risperdal to 1 mg qhs tomorrow 09/28/16--improving on Risperdal 2 mg, likes M tab formulation, reviewed metabolic screening labs. Reviewed indication with patient, he lacks understanding of his condition and is just starting to recover. No abnormal motor movements/EPS/akathisia. Baseline AIMS=0. Need to confirm outpatient provider and address family session to reality orient, patient unable to tolerate today due to ongoing psychosis. 09/29 - Continue current meds - Obtain supplemental information from family - Has submitted a 72 hr notice. Will need to determine need for 302 by at 1330. 09/30 - Refusing Risperdal, but getting prn Haldol and Ativan daily. - Attempt to get collateral from sister and ?therapist. - Mother states this is an acute change from baseline, concerned that he cannot live independently, but he is refusing contact with mother or suggestions to move home - Social work attempting to clarify if he actually has a therapist, as he insists he does, but the person he states he sees cannot be located and doesn't work at the practice he claims she does 10/01 - Refusing groups, sometimes refusing medication, and refusing contact with mother. Did agree to a meeting with father scheduled for 10/02 - Continue risperidone 2mg qhs and prns - Placed on 302 commitment as refused to rescind 72 hour notice and remains psychotic, cannot give reasonable plan for meeting basic needs outside hospital , saying he can't work due to his thoughts being disorganized 10/02 - 303 petition given weekend and county closed 10/05/15, currently scheduled 9: 45 on 10/06/16; titrate Risperdal continuing 2mg/hs dose and by adding 1 mg am dose. 10/04/16 - has some tiredness with Am risperdal but ongoing psychosis by observation, poor insight on part of patient. Increase risperdal to 3mg/hs tonight, and continue 1mg/Am dose. 10/05/16 - Delusional, hallucinating, unable to make reasonable plan to provide for housing, food, health, safety outside hospital. - Continue risperidone 1mg qam and 3mg qhs. Discharge / Aftercare Planning Therapist: Name: .Not currently Visit Code E&M Code: 54215 Inventory Assets Strengths: intelligence (college graduate), baseline functioning (mother relates kind, hx of Genaro albright) Needs: outpatient treatment, antipsychotic medication Risk Factors Assessment Male: Yes : No /single/: Yes Higher / Fall in social status: No Access to guns: No Health problems: No Mental Health Diagnoses: Yes Substance use disorders: No Previous attempt: No Family history of suicide: No Previous psychiatric stay: No Smoker: No Protective Factors Assessment Religion beliefs: No : No Responsible for young children: No Employed: Yes (but not going to work for weeks, unclear if still has a job) Stable relationships: No (no supports locally) Supportive family: Yes (mother is supportive, but patient is delusional and paranoid about her) Good rapport with provider: No Data Vital Signs Last 24 Hrs: Date Time Temp Pulse Resp B/P Pulse Ox O2 Delivery O2 Flow Rate FiO2 10/05/16 07:04 36.3 58 16 103/63 60 96/65 Meds Administered Last 24 Hrs: Meds Administered (Past 24Hrs) Medications (Trade) Dose Ordered Sig/Gallito Route Start Time Stop Time Status Last Admin Dose Admin Risperidone (Risperdal M Tab) 3 mg HS PO 10/04/16 22:00 11/03/16 21:59 10/04/16 21:36 3 MG
[2016-10-06 06:53] VITALS: BP_SYST 108; BP_SYST 81; BP_DIAS 48; BP_DIAS 62; PULSE 65; PULSE 70; TEMP 36.8
[2016-10-06] MEDS: RISPERIDONE ODT 1MG PO SCH ×2 (08:24→21:33)
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
[2016-10-07 06:53] VITALS: BP_SYST 116; BP_SYST 119; BP_DIAS 56; BP_DIAS 63; PULSE 68; PULSE 91; TEMP 36.8
--- NOTE | 2016-10-07 13:57 | Psychiatric Progress Notes ---
Progress Note Date of Service Oct 07, 2016. Interval History 21 yo male with first episode psychosis admit on 09/25/16 on a voluntary 201 commitment. He had submitted a 72 hour notice requesting to withdraw from treatment and was placed on a 302 commitment due to ongoing psychosis, hallucinations, confusion, and inability to care for himself outside the hospital. 303 hearing is scheduled for 10/06/16 at 0945. Chief Complaint "Pretty good". Subjective Patient was seen & assessed interval progress reviewed with Treatment Team. Staff report he attended some groups yesterday and was reserved. He removed his hospital wristband, and when staff asked about it, said he just felt like he should. He is taking medication and has been calm. He is attending groups today , and says his mood is better and stable. His goal is to remain stable, and his plan to do that is to "just go back home and take it easy, go back to work." He hasn't spoken to either of his employers yet to determine when he can return to work, and was encouraged to do that today. He denies feeling unsafe here, but continues to say he won't consider living with his mother and that would not be good for him. Sleep Information Total Hours of Sleep: 4.75 Meal Information Percent of Breakfast Consumed: 100 Percent of Lunch Consumed: 100 Percent of Dinner Consumed: 100 Mental Status Exam During interview pt is: cooperative (superficially, answers are vague ) Appearance: appropriately dressed Eye contact is: fair Motor behavior is: no abnormal motor movements Speech: normal in rate, rhythm & volume Affect: blunted Mood is: other ("pretty good") Thought content: paranoid (about mother) Suicidal thought are: denied Homicidal thoughts are: denied Hallucinations: denies auditory, denies visual Cognition: attention grossly intact, language grossly intact Insight: impaired Judgement: impaired Medication Trials (1) Past Psych Meds None Last Edited By: Victoria Beavers on Oct 05, 2016 10:56 Impression The patient is adjusting to the support and structure of the milieu. His mood is good, but minimizing recent paranoia and psychosis. Required prn Haldol and Ativan, and refusing scheduled Risperdal earlier in stay, but now taking. On 302 commitment as submitted 72 hour notice, with 303 hearing 10/06/16, as he remains disorganized, responding to internal stimuli, hallucinating, paranoid, with delusions that mother is using black magic to control him and conspired to murder his grandmother. Unable to work, support himself, but refusing to move in with mother, which is his only other option. Continued Inpatient Care The patient continues to require inpatient care due to the severity of his condition and inability to manipulate information in a reality based manner. Plan (1) Psychotic disorder prn Haldol and Ativan PO for acute calming effect will offer Risperdal 2 mg M tab tonight and further discuss risks/benefits/ alternatives when patient able to process. Not appropriate for visitors today. 09/27/16--is sleeping, no longer hyperverbal, need to monitor for excessive sedation, may need to taper Risperdal to 1 mg qhs tomorrow 09/28/16--improving on Risperdal 2 mg, likes M tab formulation, reviewed metabolic screening labs. Reviewed indication with patient, he lacks understanding of his condition and is just starting to recover. No abnormal motor movements/EPS/akathisia. Baseline AIMS=0. Need to confirm outpatient provider and address family session to reality orient, patient unable to tolerate today due to ongoing psychosis. 09/29 - Continue current meds - Obtain supplemental information from family - Has submitted a 72 hr notice. Will need to determine need for 302 by at 1330. 09/30 - Refusing Risperdal, but getting prn Haldol and Ativan daily. - Attempt to get collateral from sister and ?therapist. - Mother states this is an acute change from baseline, concerned that he cannot live independently, but he is refusing contact with mother or suggestions to move home - Social work attempting to clarify if he actually has a therapist, as he insists he does, but the person he states he sees cannot be located and doesn't work at the practice he claims she does 10/01 - Refusing groups, sometimes refusing medication, and refusing contact with mother. Did agree to a meeting with father scheduled for 10/02 - Continue risperidone 2mg qhs and prns - Placed on 302 commitment as refused to rescind 72 hour notice and remains psychotic, cannot give reasonable plan for meeting basic needs outside hospital , saying he can't work due to his thoughts being disorganized 10/02 - 303 petition given weekend and county closed 10/05/15, currently scheduled 9: 45 on 10/06/16; titrate Risperdal continuing 2mg/hs dose and by adding 1 mg am dose. 10/04/16 - has some tiredness with Am risperdal but ongoing psychosis by observation, poor insight on part of patient. Increase risperdal to 3mg/hs tonight, and continue 1mg/Am dose. 10/05/16 - Delusional, hallucinating, unable to make reasonable plan to provide for housing, food, health, safety outside hospital. - Continue risperidone 1mg qam and 3mg qhs. 10/06/16 - Continue risperidone and consolidate to bedtime, 4mg qhs. - Patient wants to stay in [place], so will refer for local aftercare. - Attempt to identify supports in the community. 10/07/16 - Referring for outpatient services. 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) Needs: outpatient treatment, antipsychotic medication Risk Factors Assessment Male: Yes : No /single/: Yes Higher / Fall in social status: No Access to guns: No Health problems: No Mental Health Diagnoses: Yes Substance use disorders: No Previous attempt: No Family history of suicide: No Previous psychiatric stay: No Smoker: No Protective Factors Assessment Oriental Orthodox beliefs: No : No Responsible for young children: No Employed: Yes (but not going to work for weeks, unclear if still has a job) Stable relationships: No (no supports locally) Supportive family: Yes (mother is supportive, but patient is delusional and paranoid about her) Good rapport with provider: No Data Vital Signs Last 24 Hrs: Date Time Temp Pulse Resp B/P Pulse Ox O2 Delivery O2 Flow Rate FiO2 10/07/16 06:53 36.8 68 16 119/63 91 116/56
[2016-10-07] MEDS: RISPERIDONE 2 MG TAB PO SCH (20:57)
[2016-10-08 06:46] VITALS: BP_SYST 106; BP_SYST 109; BP_DIAS 68; BP_DIAS 71; PULSE 75; PULSE 83; TEMP 36.6
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
[2016-10-08] MEDS: RISPERIDONE 2 MG TAB PO SCH (21:07)
[2016-10-09] MEDS: LORAZEPAM 2 MG TAB PO PRN (05:07)
[2016-10-09 06:42] VITALS: BP_SYST 113; BP_SYST 118; BP_DIAS 77; BP_DIAS 80; PULSE 68; PULSE 89; TEMP 36.4
[2016-10-09] MEDS ORDERED: RSP2 PO (12:21)
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
--- NOTE | 2016-10-09 16:01 | Psych Management Progress Note ---
Psychiatry Miscellaneous Date of Service: Oct 09, 2016. I personally met with this patient prior to discharge as medical language specialist/ collaborating MD as I also had knowledge of his baseline on admission having admitted patient. Darnell is significantly improved. He is organized, was able to verbalize his safety plan and need for medications as well as outline a plan to return to work. He denied hallucinations and attributed any recent periods of restlessness on unit to lack of sleep from having a roommate and just anticipation of discharge. He is aware his condition will likely worsen if stops medication and agrees to abstain from drugs and alcohol. He did have a phone meeting with his father who will be checking on him regularly following discharge. He was not available to stay with the patient this weekend. I agree that he no longer meets criteria for inpatient involuntary hospitalization and he has repeatedly requested to leave today rather than tomorrow.
[2016-10-09] MEDS: RISPERIDONE 2 MG TAB PO SCH (17:34)
== END 2016-10-09 18:10 | disposition home or self-care (01) | DRG 885 ==
LOC: EDBD 13:32 → C.EDA 13:33 → C.MHU 19:53
PROVIDERS: ADMIT Psychiatry & Neurology Child & Adolescent Psychiatry; ATTEND Psychiatry & Neurology Child & Adolescent Psychiatry
DX: F29 Unspecified psychosis not due to a substance or known physiological condition (principal); Z62.810 Personal history of physical and sexual abuse in childhood

== ENCOUNTER 2016-10-16 21:10 | Inpatient (IN) | payer BC, OTHER ==
[~2016-10-16] VITALS: Ht 180.3 cm; Wt 71.0 kg
[~2016-10-16 21:10] MED LIST: RSP2 PO
[2016-10-16] MEDS ORDERED: RISPERIDONE 1 MG TAB PO ONE (21:45)
--- NOTE | 2016-10-16 22:00 | EMERGENCY ROOM VISIT NOTE ---
History Report prepared by Star: Andra Ricketts Under the Supervision of: Dr. Tyson Frederick D.O. 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 He states that about a month he started to come more withdrawn from his mother and sister and when they finally made contact with the patient he seemed incoherent. He states that that the patient was admitted into the psychiatric unit at [facility] on September 25 and was discharged 1 week ago after receiving treatment for psychosis. He states that the patient was supposed to go to follow up appointment and take medications but does not think the patient has done. The patient's father said that he has been in contact with the patient's neighbors and they stated that this week the patient was found to be incoherent outside in the snow and talking to him. He states that when arriving at his son's house tonight he heard the patient laughing to himself and banged his head against the wall and abruptly shut the door on him like he was leaving all of the sudden. He states that the patient's roommate also called him later this evening after he left the patient's apartment he was found to be drinking beer and acting incoherently. The patient's father states that the patient seems to have worsening symptoms from when he saw him about a week ago when he was getting psychiatric treatment. He states that he does not believe the patient had taken any of his medication but will state he took the medication when asked. The patient's father also states that the patient's director of social media marketing was concerned about how serious the patient was taking his treatment. He states the patient has no other medical problems prior to his psychological evaluation in September. HPI from patient is limited due to AMS. 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 A total of 10 systems reviewed and were otherwise negative. Past Medical & Surgical Medical Problems: (1) No known problems (2) Past Psych Meds (3) Schizophreniform disorder Family History Patient reports no known family medical history. Social History Smoking Status: Current Some Day Smoker Drug Use: marijuana Marital Status: single Occupation Status: [employer] student Current/Historical Medications Scheduled Risperidone (Risperidone), 4 MG PO HS Allergies Coded Allergies: Peanut (Verified Allergy, Unknown, RASH, 10/16/16) Physical Exam Vital Signs Date Time Temp Pulse Resp B/P Pulse Ox O2 Delivery O2 Flow Rate FiO2 10/17/16 10:33 102 18 125/78 99 10/17/16 06:10 72 20 119/72 100 Room Air 10/17/16 00:57 68 18 88/60 99 Room Air 10/16/16 23:03 77 18 110/66 99 Room Air 10/16/16 22:48 65 18 130/72 99 Room Air 10/16/16 21:38 96 10/16/16 21:20 37.0 90 18 137/86 99 Room Air Physical Exam GENERAL: Patient is awake, alert, and somewhat anxious and guarded appearing. Responds to internal stimuli EYES: The conjunctivae are clear. The pupils are round and reactive. EARS, NOSE, MOUTH AND THROAT: The nose is without any evidence of any deformity. Mucous membranes are moist tongue is midline NECK: The neck is nontender and supple. RESPIRATORY: Normal respiratory effort is noted there is no evidence of wheezing rhonchi or rales CARDIOVASCULAR: Regular rate and rhythm noted there no murmurs rubs or gallops normal S1 normal S2 GASTROINTESTINAL: The abdomen is soft. Bowel sounds are present in all quadrants. Abdomen is nontender MUSCULOSKELETAL/EXTREMITIES: There is no evidence of gross deformity full range of motion is noted in the hips and shoulders SKIN: There is no obvious evidence of any rash. There are no petechiae, pallor or cyanosis noted. NEUROLOGIC: Patient is awake alert and oriented to person place and situation. Patellar tendon reflexes were 2+ bilaterally. PSYCH: Patient was guarded and answers questions intermittently. Patient responds to internal stimuli, and he has very tangential though process. Very poor insight into overall condition. Medical Decision & Procedures Laboratory Results 10/16/16 21:51 Red Blood Count 4.60, Mean Corpuscular Volume 88.0, Mean Corpuscular Hemoglobin 32.0, Mean Corpuscular Hemoglobin Concent 36.3, Mean Platelet Volume 9.7, Neutrophils (%) (Auto) 65.9, Lymphocytes (%) (Auto) 22.3, Monocytes (%) (Auto) 10.0, Eosinophils (%) (Auto) 1.2, Basophils (%) (Auto) 0.3, Neutrophils # (Auto ) 4.33, Lymphocytes # (Auto) 1.47, Monocytes # (Auto) 0.66, Eosinophils # (Auto ) 0.08, Basophils # (Auto) 0.02 10/16/16 21:51 Test 10/16/16 21:51 10/16/16 23:38 White Blood Count 6.58 K/uL (4.8-10.8) Red Blood Count 4.60 M/uL (4.7-6.1) Hemoglobin 14.7 g/dL (14.0-18.0) Hematocrit 40.5 % (42-52) Mean Corpuscular Volume 88.0 fL (80-100) Mean Corpuscular Hemoglobin 32.0 pg (25-34) Mean Corpuscular Hemoglobin Concent 36.3 g/dl (32-36) Platelet Count 220 K/uL (130-400) Mean Platelet Volume 9.7 fL (7.4-10.4) Neutrophils (%) (Auto) 65.9 % Lymphocytes (%) (Auto) 22.3 % Monocytes (%) (Auto) 10.0 % Eosinophils (%) (Auto) 1.2 % Basophils (%) (Auto) 0.3 % Neutrophils # (Auto) 4.33 K/uL (1.4-6.5) Lymphocytes # (Auto) 1.47 K/uL (1.2-3.4) Monocytes # (Auto) 0.66 K/uL (0.11-0.59) Eosinophils # (Auto) 0.08 K/uL (0-0.5) Basophils # (Auto) 0.02 K/uL (0-0.2) RDW Standard Deviation 41.4 fL (36.4-46.3) RDW Coefficient of Variation 13.0 % (11.5-14.5) Immature Granulocyte % (Auto) 0.3 % Immature Granulocyte # (Auto) 0.02 K/uL (0.00-0.02) Anion Gap 11.0 mmol/L (3-11) Est Creatinine Clear Calc Drug Dose 147.9 ml/min Estimated GFR () 147.5 Estimated GFR (Non- 127.2 BUN/Creatinine Ratio 11.8 (10-20) Calcium Level 9.0 mg/dl (8.5-10.1) Total Bilirubin 1.5 mg/dl (0.2-1) Direct Bilirubin 0.4 mg/dl (0-0.2) Aspartate Amino Transf (AST/SGOT) 30 U/L (15-37) Alanine Aminotransferase (ALT/SGPT) 33 U/L (12-78) Alkaline Phosphatase 61 U/L (45-117) Total Protein 7.3 gm/dl (6.4-8.2) Albumin 4.2 gm/dl (3.4-5.0) Globulin 3.1 gm/dl (2.5-4.0) Albumin/Globulin Ratio 1.4 (0.9-2) Thyroid Stimulating Hormone (TSH) 0.678 uIu/ml (0.300-4.500) Ethyl Alcohol mg/dL < 3.0 mg/dl (0-3) Urine Color DK YELLOW Urine Appearance CLOUDY (CLEAR) Urine pH 6.0 (4.5-7.5) Urine Specific [place] 1.024 (1.000-1.030) Urine Protein NEG (NEG) Urine Glucose (UA) NEG (NEG) Urine Ketones 1+ (NEG) Urine Occult Blood NEG (NEG) Urine Nitrite NEG (NEG) Urine Bilirubin NEG (NEG) Urine Urobilinogen NEG (NEG) Urine Leukocyte Esterase NEG (NEG) Urine WBC (Auto) 1-5 /hpf (0-5) Urine RBC (Auto) 0-4 /hpf (0-4) Urine Hyaline Casts (Auto) 5-10 /lpf (0-5) Urine Epithelial Cells (Auto) 20-30 /lpf (0-5) Urine Bacteria (Auto) NEG (NEG) Urine Opiates Screen NEG (NEG) Urine Methadone, Qualitative NEG (NEG) Urine Barbiturates NEG (NEG) Urine Phencyclidine (PCP) Level NEG (NEG) Ur Amphetamine/Methamphetamine NEG (NEG) MDMA (Ecstasy) Screen NEG (NEG) Urine Benzodiazepines Screen NEG (NEG) Urine Cocaine Metabolite NEG (NEG) Urine Marijuana (THC) NEG (NEG) Laboratory results per my review. Medications Administered Medications (Trade) Dose Ordered Sig/Gallito Route Start Time Stop Time Status Last Admin Dose Admin Risperidone (Risperdal Tab) 2 mg NOW ONCE PO 10/16/16 21:45 10/16/16 21:46 DC 10/16/16 21:44 2 MG Risperidone (Risperdal Tab) 1 mg QAM PO 10/17/16 09:00 10/17/16 11:50 DC 10/17/16 09:26 1 MG ED Course 2140: The patient was evaluated in room A8. A complete history and physical examination were performed. 2144: Ordered Risperdal Tab 2 mg PO. 99: The patient is signed out to Dr. Jamshid chen Can Help evaluation and bed search. Medical Decision Differential diagnosis: Etiologies such as mood disorder, infection, hypoglycemia, electrolyte abnormalities, cardiac sources, intracerebral event, toxicologic, neurologic, as well as others were entertained. Nursing notes reviewed. Additional history is obtained from the patient's father. The patient's previous electronic medical records reviewed. The patient is a 21-year-old male who presented to the emergency department for a mental health evaluation. The patient was recently admitted to our facility at the end of September. He was diagnosed with schizophrenia and psychosis. The patient has not been taking his medications. He started having psychotic behavior and was sent to the emergency department by ambulance after his father came to see him from the [facility] area. The patient was medically cleared in the emergency department. The patient was evaluated by the emergency department shoe parts caser. Patient was treated with Risperdal the emergency department. He appeared to be less anxious and was more cooperative but still had significant psychotic behavior while he was in the emergency department. The patient was found to be in the of inpatient care. The patient was signed out to Dr. Breen at change of shift. Please see her note for continuation of care. Impression Primary Impression: Schizophrenia Additional Impressions: Acute psychosis Noncompliance with medications Scribe Attestation The scribe's documentation has been prepared under my direction and personally reviewed by me in its entirety. I confirm that the note above accurately reflects all work, treatment, procedures, and medical decision making performed by me. Departure Information Dispostion Mental Health Acute Care Referrals No Doctor, Assigned (PCP) Problem Qualifiers
[2016-10-16 22:03] LABS: BASO % 0.3 %; BASO ABS # 0.02 K/uL (0-0.2); COMPLETE YES; EOS % 1.2 %; HEMATOCRIT 40.5 % (42-52); IG% 0.3 %; LYMPH % 22.3 %; LYMPH ABS # 1.47 K/uL (1.2-3.4); MEAN CORPUSCULAR HGB CONC 36.3 g/dl (32-36); MEAN PLATELET VOLUME 9.7 fL (7.4-10.4); NEUT % 65.9 %; PLATELET COUNT 220 K/uL (130-400); WHITE BLOOD COUNT 6.58 K/uL (4.8-10.8)
[2016-10-16 22:23] LABS: BUN/CREATININE RATIO 11.8 (10-20); CREATININE 0.78 mg/dl (0.60-1.40); POTASSIUM 3.6 mmol/L (3.5-5.1)
[2016-10-16 22:34] LABS: ALB/GLOB RATIO 1.4 (0.9-2); THYROID STIMULATING HORMONE 0.678 uIu/ml (0.300-4.500)
[2016-10-17 00:05] LABS: URINE APPEARANCE CLOUDY (CLEAR); URINE COLOR DK YELLOW; URINE EPITHELIAL CELL AUTO 20-30 /lpf (0-5); URINE NITRITE NEG (NEG); URINE SPECIFIC GRAVITY 1.024 (1.000-1.030); UROBILINOGEN NEG (NEG)
[2016-10-17 00:18] LABS: BENZODIAZEPINE, URINE NEG (NEG); COCAINE,URINE NEG (NEG); PHENCYCLIDINE, URINE NEG (NEG)
[2016-10-17 00:20] LABS: MANUAL MICROSCOPIC REQUIRED? NO; REVIEW REQ? NO; URINE BILIRUBIN NEG (NEG)
--- NOTE | 2016-10-17 02:31 | EMERGENCY ROOM VISIT NOTE ---
ED Visit Note First contact with patient: 01:46 This patient was signed out to me at change of shift awaiting evaluation by mobile crisis. They can help worker is here at this time doing an evaluation on this patient. 2:30: Discussed the case with mobile crisis. They will start a bed search 355: The [facility] has declined this patient as they have no beds. The mobile torpedo worker is waiting to hear back from Miguel 0535: I discussed the case again with the mobile torpedo worker. They have been declined by multiple facilities. The bed search will be suspended until 9 AM. [facility] will reconsider at 7 AM. The case will be signed out to Dr. Mehta at 6:30 AM at change of shift.
[2016-10-17] MEDS ORDERED: ACETAMINOPHEN 325 MG TAB PO PRN ×2 (09:00→10:30)
[2016-10-17] MEDS ORDERED: MAGNESIUM HYDROXIDE SUSP 30 ML UDC PO PRN ×2 (09:00→10:30)
[2016-10-17] MEDS ORDERED: BISMUTH SUBSALICYLATE PER ML OMNICELL CHARGE PO PRN ×2 (09:00→10:30)
[2016-10-17] MEDS ORDERED: hydrOXYzine HCL 25 MG TAB PO PRN ×4 (09:00→10:30)
[2016-10-17] MEDS ORDERED: ALUMINUM/MAGNESIUM SUSP 30 ML UDC PO PRN ×2 (09:00→10:30)
[2016-10-17] MEDS ORDERED: HALOPERIDOL 5 MG TAB PO PRN ×2 (09:00→10:30)
[2016-10-17] MEDS ORDERED: BENZTROPINE MESYLATE 0.5 MG TAB PO PRN (09:00)
[2016-10-17] MEDS ORDERED: SODIUM CHLORIDE 0.65% NA SOLN 45 ML (OCEAN) PRN ×2 (09:00→10:30)
[2016-10-17] MEDS: RISPERIDONE 1 MG TAB PO SCH (09:26)
--- NOTE | 2016-10-17 09:37 | EMERGENCY ROOM VISIT NOTE ---
ED Visit Note 21-year-old male signed out to me at change of shift from Dr. Breen. I reevaluated the patient at 0920. Patient is awaiting mental health clearance. The patient has since been accepted for admission to [facility]. IMPRESSION: Acute Psychosis Schizophrenia
[2016-10-17] MEDS ORDERED: HALOPERIDOL LACTATE 5 MG/ML 1 ML VIAL IM PRN (10:30)
[2016-10-17 10:33] VITALS: O2SAT 99
[2016-10-17 11:47] VITALS: BP 119/75; PULSE 77; TEMP 36.8; Ht 180.3 cm; Wt 71.0 kg
--- NOTE | 2016-10-17 12:43 | Psychiatric History & Physical ---
History Identifying Data Darnell Patel is a 21-year-old male who currently lives in [place]. Darnell Patel was admitted on a 201 voluntary commitment. Patient is admitted from home/ER. The patient was brought to the ED by his father. The patient is currently reports he is tired and mainly answers with 1-2 word sentences so his history is not particularly reliable. Chief Complaint "I just need some rest". History of Present Illness Darnell was admitted to the behavioral health unit from 09/25/16-10/09/16 for disorganized and threatening behavior toward his mother. He was somewhat religiously preoccupied believing that his mother was the devil and also preoccupied with his grandmother's (she passed when he was 8 yo). Initially he exhibited periods of psychomotor restlessness with nonsensical speech/talking to himself and hand gestures. His 201 commitment was converted to a 302 when he refused to rescind a 72 hour notice and was still exhibiting psychosis on his Risperdal trial. A 303 was ultimately granted. He was discharged on 4 mg of Risperdal with plan for outpatient follow-up at [facility] ([facility] on 10/12/16. Appointments cannot be confirmed as offices closed for weekend. He states that he kept at least 1 of these appointments and was taking his medications regularly but his father reported to the ED that he has had gradual decline per roommates since discharge. There are reports he may have been drinking beer and father did not believe he was taking his medication regularly. All the patient can tell me at this time is that he was not able to get back to work, "can we please stop now? ". Tired appearing following 2 mg of Risperdal in ED but denies EPS and there is no evidence of abnormal motor movements. 302 petitioning statement remains on file from father should patient attempt to sign out again as he has been seen talking to himself when alone in his room or out in front of the rental house. He appears to be neglecting his personal hygiene and they worry he may not be eating and drinking regularly. Violence to self in past 6 months--none reported Violence toward others in past 6 months--threatening toward mother due to paranoia prior to last stay Past Psychiatric History Current OP Treatment: psychiatrist ([facility]), therapist ([facility]) Prior OP Treatment: therapist (when younger around parents' divorce) Prior Psych Hospitalizations: [facility] (09/25/16-10/09/16 psychotic disorder) no prior suicide attempts Risperdal is first psychiatric med trial, did benefit from Haldol and Ativan prns last hospitalization Past Medical/Surgical History History of Obesity: No History of HTN: No History of Diabetes: No History of Heart Disease: No History of Dyslipidemia: No History of Concussion/Seizure: No Problem List: Allergies Allergies: Coded Allergies: Peanut (Verified Allergy, Unknown, RASH, 10/16/16) Home Medications Scheduled Risperidone (Risperidone), 4 MG PO HS Family History History of Obesity: No History of HTN: Yes History of Diabetes: No History of Heart Disease: Yes History of Dyslipidemia: No mother previously reported history of depression and ETOH use in father no family history of schizophrenia, bipolar or suicide attempts Alcohol Use Alcohol Use In Past 12 Months: Yes likely minimizing 12 oz bottle of beer few times a month Substance History Substance Use Past 12 Months: Hx of Inhalent Use: No Hx of Organic Substance Use: Yes (marijuana use, 1 joint weekly stated previously last use August 2016, denies since stay) Hx of Illegal/Street Drug Use: No Hx of Over the Counter Med Use: No Hx of Prescription Med Use: No (Risperdal) Personal History Parental Status: Development: has a younger sister who is currently a senior in college in [place] Education: graduated college 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 Examination Physical Examination A physical exam was performed in the ED by Dr. Frederick prior to admission to the unit. I accept that physical as correct/medical clearance for the inpatient physical exam. Vital Signs Vital Signs Past 12 Hours Date Time Temp Pulse Resp B/P Pulse Ox O2 Delivery O2 Flow Rate FiO2 10/17/16 11:47 36.8 77 14 119/75 10/17/16 10:33 102 18 125/78 99 10/17/16 06:10 72 20 119/72 100 Room Air 10/17/16 00:57 68 18 88/60 99 Room Air Laboratory Results Last 24 Hours Test 10/16/16 21:51 10/16/16 23:38 White Blood Count 6.58 K/uL Red Blood Count 4.60 M/uL Hemoglobin 14.7 g/dL Hematocrit 40.5 % Mean Corpuscular Volume 88.0 fL Mean Corpuscular Hemoglobin 32.0 pg Mean Corpuscular Hemoglobin Concent 36.3 g/dl Platelet Count 220 K/uL Mean Platelet Volume 9.7 fL Neutrophils (%) (Auto) 65.9 % Lymphocytes (%) (Auto) 22.3 % Monocytes (%) (Auto) 10.0 % Eosinophils (%) (Auto) 1.2 % Basophils (%) (Auto) 0.3 % Neutrophils # (Auto) 4.33 K/uL Lymphocytes # (Auto) 1.47 K/uL Monocytes # (Auto) 0.66 K/uL Eosinophils # (Auto) 0.08 K/uL Basophils # (Auto) 0.02 K/uL RDW Standard Deviation 41.4 fL RDW Coefficient of Variation 13.0 % Immature Granulocyte % (Auto) 0.3 % Immature Granulocyte # (Auto) 0.02 K/uL Sodium Level 143 mmol/L Potassium Level 3.6 mmol/L Chloride Level 106 mmol/L Carbon Dioxide Level 26 mmol/L Anion Gap 11.0 mmol/L Blood Urea Nitrogen 9 mg/dl Creatinine 0.78 mg/dl Est Creatinine Clear Calc Drug Dose 147.9 ml/min Estimated GFR () 147.5 Estimated GFR (Non- 127.2 BUN/Creatinine Ratio 11.8 Random Glucose 90 mg/dl Calcium Level 9.0 mg/dl Total Bilirubin 1.5 mg/dl Direct Bilirubin 0.4 mg/dl Aspartate Amino Transf (AST/SGOT) 30 U/L Alanine Aminotransferase (ALT/SGPT) 33 U/L Alkaline Phosphatase 61 U/L Total Protein 7.3 gm/dl Albumin 4.2 gm/dl Globulin 3.1 gm/dl Albumin/Globulin Ratio 1.4 Thyroid Stimulating Hormone (TSH) 0.678 uIu/ml Ethyl Alcohol mg/dL < 3.0 mg/dl Urine Color DK YELLOW Urine Appearance CLOUDY Urine pH 6.0 Urine Specific [place] 1.024 Urine Protein NEG Urine Glucose (UA) NEG Urine Ketones 1+ Urine Occult Blood NEG Urine Nitrite NEG Urine Bilirubin NEG Urine Urobilinogen NEG Urine Leukocyte Esterase NEG Urine WBC (Auto) 1-5 /hpf Urine RBC (Auto) 0-4 /hpf Urine Hyaline Casts (Auto) 5-10 /lpf Urine Epithelial Cells (Auto) 20-30 /lpf Urine Bacteria (Auto) NEG Urine Opiates Screen NEG Urine Methadone, Qualitative NEG Urine Barbiturates NEG Urine Phencyclidine (PCP) Level NEG Ur Amphetamine/Methamphetamine NEG MDMA (Ecstasy) Screen NEG Urine Benzodiazepines Screen NEG Urine Cocaine Metabolite NEG Urine Marijuana (THC) NEG Mental Examination During interview pt is: alert and oriented, guarded Appearance: appropriately dressed Eye contact is: poor Motor behavior is: no abnormal motor movements Speech: other (non spontaneous) Affect: blunted Mood is: other ("tired") Thought process: tangential Thought content: other (possible blocking) Suicidal thought are: denied Homicidal thoughts are: denied Hallucinations: denies auditory, denies visual Cognition: language grossly intact, other (decreased attention, unable to cooperate with memory testing) Intelligence estimated to be: consistent with level of education Insight: poor Judgement: poor Impression / Recommendations Impression 21 yo male with recent admit for paranoid and disorganized behavior, stabilized to no longer meet involuntary commitment criteria on Risperdal, decline in past week likely related to noncompliance. 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 The patient is admitted to [facility] ([facility] mental [facility] unit) on q 15 min checks (behavioral with suicide precautions) for safety. The patient will participate in group, recreational and milieu therapies and will be offered additional individual and family sessions as clinically appropriate. Inventory Assets Strengths: both parents desire to play role in care, college graduate/previously employed Needs: increase insight into condition and treatment needs Risk Factors Assessment Male: Yes /single/: Yes Access to guns: No Mental Health Diagnoses: Yes Previous attempt: No Previous psychiatric stay: Yes Protective Factors Assessment Supportive family: Yes Recommendations (1) Schizophreniform disorder resume Risperdal 4 mg po qhs, all patient is agreeing to at this time with Haldol prn introduced concept of injectable medication, possible switch to Invega for conversion to monthly injection. (2) Noncompliance with medications injectable discussed last hospitalization and patient declined would benefit from therapeutic case manager if stays in area, little support locally CPT Code Initial Hospital Care: [id number]
[2016-10-17] MEDS ORDERED: RISPERIDONE 2 MG TAB PO SCH ×2 (21:00)
[2016-10-18 06:59] VITALS: BP_SYST 107; BP_SYST 109; BP_DIAS 70; BP_DIAS 74; PULSE 64; PULSE 87; TEMP 36.5
--- NOTE | 2016-10-18 08:31 | Psychiatric Progress Notes ---
Progress Note Date of Service Oct 18, 2016. Interval History 21 y/o single male who lives in [place] with a roommate, has a history of psychosis and noncompliance with treatment, who was just discharged from the [facility] on 10/09/16 and re-presented 10/16/16 with psychosis and disorganization and was admitted voluntarily, with a backup 302 petition from his father. He admits he did not attend outpatient appointments or take medications after discharge from the [facility], saying he doesn't think there is anything wrong with him. Chief Complaint "Pretty well, pretty good at least". Subjective Patient was seen & assessed interval progress reviewed with nursing. Staff report he is actively responding to internal stimuli, talking to himself and laughing inappropriately. He is refusing all groups. His hygiene is very poor and he had to be encouraged to shower and wash his clothes, as it did not appear he had done either in some time. He requires staff encouragement to eat meals, and is easily distracted. Per ER notes, his father said that he has been in contact with the patient's neighbors and they stated that this week the patient was found to be incoherent outside in the snow and talking to himself. When he arrived at his son's house 10/16/16, he heard the patient laughing to himself, banging his head against the wall, and he abruptly shut the door on him. The patient's roommate also called him after he left the patient's apartment as he was drinking beer and acting incoherently. The patient's father states that the patient seems to have worsening symptoms from when he saw him about a week ago when he was getting psychiatric treatment. He states that he does not believe the patient had taken any of his medication. The patient did take risperidone as ordered by Dr. Palomo yesterday. Today he was seen in his room where he was lying in bed awake. He says he "just needed to come back for a little while...sorta came to a head again. After this visit, I' ll be fine." He is not able to describe the events that led to his re-admission , saying "my sister, mother showed up, the situation with my mother came to a head, no not her, things just got really bad, really good at the same time....she's not to do with this, but Chad, my biological mother, had a lot to do with this, she's the devil." When asked if he'd had contact with his mother or sister since his last admission, he says no, and says "my dad is really great thought." When asked if he went to any of his outpatient appointments or took the medication he was prescribed, he says "No, I was told all that was optional. I just wanted to take care of it myself." He says he won' t go to groups here because "I was told I wouldn't need to be here very long...I think I'm fine, I'm just here because other people are concerned, but as you can see, I'm fine." He does not believe he has a mental illness or needs treatment. Reviewed recommendations for a long acting injectable antipsychotic, which he is refusing. Sleep Information Total Hours of Sleep: 9.50 Meal Information Percent of Lunch Consumed: 100 Percent of Dinner Consumed: 75 Mental Status Exam During interview pt is: guarded (alert) Appearance: appropriately dressed, other (poor hygiene, malodorous, unkempt) Eye contact is: poor Motor behavior is: no abnormal motor movements Speech: other (minimal speech) Affect: blunted Mood is: other ("tired") Thought process: tangential, incoherent Thought content: paranoid, delusions (about mother being the devil), other ( possible blocking) Suicidal thought are: denied Homicidal thoughts are: denied Hallucinations: denies auditory, denies visual Cognition: language grossly intact, other (impaired attention and memory) Intelligence estimated to be: consistent with level of education Insight: severely impaired Judgement: severely impaired Impression 21 yo male with recent admit for paranoid and disorganized behavior, stabilized to no longer meet involuntary commitment criteria on Risperdal, decline in past week likely related to noncompliance. 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 The patient is admitted to [facility] ([facility] mental [facility] unit) on q 15 min checks (behavioral with suicide precautions) for safety. The patient will participate in group, recreational and milieu therapies and will be offered additional individual and family sessions as clinically appropriate. 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 Fasting labs for monitoring on an atypical performed earlier this month during previous hospitalization and were WNLs. 10/18 - Increase risperidone to 1mg qam and 4mg qhs. Recommend MENDIOLA, which he is declining. Javier is nonformulary, but if he is willing could consider Sustenna , if approved by insurance. (2) Noncompliance with medications injectable discussed last hospitalization and patient declined would benefit from field nurse case manager if stays in area, little support locally 10/18 - Consider 304 commitment to convert to outpatient commitment at discharge, given poor insight and compliance - Admits he did not go to therapy (Octavio at [facility]) or psychiatry appointments (Nataly Griffin at [facility]) that were arranged during last hospitalization Discharge / Aftercare Planning Psychiatrist: Name: [facility] Therapist: Name: [facility] Visit Code E&M Code: 54317 Inventory Assets Strengths: both parents desire to play role in care, college graduate/previously employed Needs: increase insight into condition and treatment needs Risk Factors Assessment Male: Yes /single/: Yes Mental Health Diagnoses: Yes Previous attempt: No Previous psychiatric stay: Yes Protective Factors Assessment Supportive family: Yes Data Vital Signs Last 24 Hrs: Date Time Temp Pulse Resp B/P Pulse Ox O2 Delivery O2 Flow Rate FiO2 10/18/16 06:59 36.5 64 16 109/70 87 107/74 10/17/16 11:47 36.8 77 14 119/75 10/17/16 10:33 102 18 125/78 99 Meds Administered Last 24 Hrs: Meds Administered (Past 24Hrs) Medications (Trade) Dose Ordered Sig/Gallito Route Start Time Stop Time Status Last Admin Dose Admin Risperidone (Risperdal Tab) 2 mg NOW ONCE PO 10/16/16 21:45 10/16/16 21:46 DC 10/16/16 21:44 2 MG Risperidone (Risperdal Tab) 1 mg QAM PO 10/17/16 09:00 11/16/16 08:59 10/17/16 09:26 1 MG Risperidone (Risperdal Tab) 2 mg HS PO 10/17/16 21:00 11/16/16 20:59 10/17/16 20:41 2 MG
[2016-10-18] MEDS: RISPERIDONE 1 MG TAB PO SCH (08:41)
[2016-10-18] MEDS ORDERED: BENZTROPINE MESYLATE 1 MG TAB PO PRN (13:45)
[2016-10-18] MEDS: RISPERIDONE 2 MG TAB PO SCH (19:51)
[2016-10-19 06:50] VITALS: BP_SYST 120; BP_SYST 125; BP_DIAS 79; BP_DIAS 84; PULSE 69; PULSE 80; TEMP 36.9
[2016-10-19] MEDS: RISPERIDONE 1 MG TAB PO SCH (08:03)
--- NOTE | 2016-10-19 10:31 | Psychiatric Progress Notes ---
Progress Note Date of Service Oct 19, 2016. Interval History 21 y/o single male who lives in [place] with a roommate, has a history of psychosis and noncompliance with treatment, who was just discharged from the [facility] on 10/09/16 and re-presented 10/16/16 with psychosis and disorganization and was admitted voluntarily, with a backup 302 petition from his father. He admits he did not attend outpatient appointments or take medications after discharge from the [facility], saying he doesn't think there is anything wrong with him. Chief Complaint "I'm fine". Subjective Patient was seen & assessed interval progress reviewed with Treatment Team. Staff report he declined all groups yesterday, and isolated in his room, where he was talking and laughing to himself, appeared to be responding to internal stimuli. He admitted to nursing staff that he did not fill his prescription after discharge, and did not go to any follow up appointments. He also admitted that he was hearing voices, that they sometimes tell him to hurt himself or to hurt other people, and that he sees "holograms" of people running around. He is paranoid and guarded with most staff however, and usually denies hallucinations when asked. He is taking oral risperidone as ordered, but does not believe he is ill or needs to be here. He was seen in his room today where he was lying on the bed awake, listening to music. 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 He has not spoken to his family since admission, and says he is not worried about that, "I' ll talk to my dad sometime." He says he is on the lease at his current apartment , and it runs through the end of March. When asked about hallucinations today, he adamantly denies them, saying "I never said that!" Sleep Information Total Hours of Sleep: 6.50 Meal Information Percent of Breakfast Consumed: 100 Percent of Lunch Consumed: 80 Percent of Dinner Consumed: 100 Mental Status Exam During interview pt is: guarded (awake and alert, but evasive and gives vague answers to questions. 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 in [facility]), other (possible blocking) Suicidal thought are: denied Homicidal thoughts are: denied Hallucinations: auditory (although he denies AVH today, he admitted to staff that he is hearing voices and seeing holograms of people, and is actievly responding to internal stimuli), visual Cognition: language grossly intact, other (impaired attention and memory) Intelligence estimated to be: consistent with level of education Insight: severely impaired Judgement: severely impaired Impression 21 yo male with recent admit for paranoid and disorganized behavior, stabilized to no longer meet involuntary commitment criteria on Risperdal, and discharged to outpatient care. He rapidly declined outside the hospital over the next week, and admits he did not fill his prescription or keep any of his follow up appointments. He re-presented with psychosis and inability to care for himself after his roommate and neighbors contacted his father, who came to [place] and brought him to the ER. He was admitted on a 201, but has a backup 302 petition. Symptoms consistent with schizophreniform disorder given duration/ course, suspect paranoid schizophrenia will be his eventual diagnosis. 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 Fasting labs for monitoring on an atypical performed earlier this month during previous hospitalization and were WNLs. 10/18 - Increase risperidone to 1mg qam and 4mg qhs. Recommend MENDIOLA, which he is declining. Javier is nonformulary, but if he is willing could consider Sustenna , if approved by insurance. 10/19 - Continue risperidone, exploring options for MENDIOLA. Javier is nonformulary, and Sustenna is available at the hospital but not covered by his insurance. Attempting to get PA forms, but insurance company is closed due to holiday today. Consider filing for a 304 commitment and converting to outpatient commitment at discharge. Will need family meeting with both parents once he is able to tolerate it. (2) Noncompliance with medications injectable discussed last hospitalization and patient declined would benefit from dependency case manager if stays in area, little support locally 10/18 - Consider 304 commitment to convert to outpatient commitment at discharge, given poor insight and compliance - Admits he did not go to therapy (Octavio at [facility]) or psychiatry appointments (Nataly Griffin at [facility]) that were arranged during last hospitalization Discharge / Aftercare Planning Psychiatrist: Name: [facility] Therapist: Name: [facility] Visit Code E&M Code: 44310 Inventory Assets Strengths: both parents desire to play role in care, college graduate/previously employed Needs: increase insight into condition and treatment needs Risk Factors Assessment Male: Yes /single/: Yes Mental Health Diagnoses: Yes Previous attempt: No Previous psychiatric stay: Yes Protective Factors Assessment Supportive family: Yes Data Vital Signs Last 24 Hrs: Date Time Temp Pulse Resp B/P Pulse Ox O2 Delivery O2 Flow Rate FiO2 10/19/16 06:50 36.9 69 16 125/79 80 120/84 Meds Administered Last 24 Hrs: Meds Administered (Past 24Hrs) Medications (Trade) Dose Ordered Sig/Gallito Route Start Time Stop Time Status Last Admin Dose Admin Risperidone (Risperdal Tab) 2 mg HS PO 10/17/16 21:00 10/18/16 08:32 DC 10/17/16 20:41 2 MG Risperidone (Risperdal Tab) 4 mg HS PO 10/18/16 22:00 11/17/16 21:59 10/18/16 19:51 4 MG
[2016-10-19] MEDS: RISPERIDONE 2 MG TAB PO SCH (21:34)
[2016-10-20 06:51] VITALS: BP_SYST 117; BP_SYST 119; BP_DIAS 67; BP_DIAS 77; PULSE 62; PULSE 80; TEMP 36.8
[2016-10-20] MEDS: RISPERIDONE 1 MG TAB PO SCH (08:49)
--- NOTE | 2016-10-20 10:43 | Psychiatric Progress Notes ---
Progress Note Date of Service Oct 20, 2016. Interval History 21 y/o single male who lives in [place] with a roommate, has a history of psychosis and noncompliance with treatment, who was just discharged from the [facility] on 10/09/16 and re-presented 10/16/16 with psychosis and disorganization and was admitted voluntarily, with a backup 302 petition from his father. He admits he did not attend outpatient appointments or take medications after discharge from the [facility], saying he doesn't think there is anything wrong with him. Chief Complaint "Fine". Subjective Patient was seen & assessed interval progress reviewed with Treatment Team. Staff report he continues to respond to internal stimuli, has not been able to tolerate programming, and isolates in his room. His parents have been contacted and expressed concerns that he needs chcf treatment and is unable to care for himself outside the hospital, as evidenced by his rapid deterioration after discharge. He wasn't able to work, did not fill meds or go to appointments, and did not shower or change clothes after leaving the hospital. He required staff direction and encouragement to shower on admission. He told staff last evening that he wanted to leave, but declined to sign a 72 hour notice, then asked what would happen if he "just walked out?" This morning he gives conflicting reports , initially says he is "fine," then says he "they had a right to be concerned, I wasn't taking care of myself," and says he will "trust the professionals and do what you guys say." Again reviewed the treatment recommendations, including a long acting injectable antipsychotic due to his noncompliance. He says he didn 't fill his medications because "they seemed unnecessary" and did not go to his outpatient appointments because "didn't think I needed to go." He cannot say how he would provide for his own basic needs outside of the hospital, and admits he has not gone to work since 09/08/16 and has no income or way to pay for food or rent. He says he will "just get another job somewhere," but can't explain how he will be able to do that when he hasn't been able to work for the past 40 days due to his mental illness. He vacillates between agreeing to the treatment recommendations and hospitalization to saying he doesn't need to be here and wanting to go home. He ultimately says "I'll do whatever you recommend , when I got home, I felt so great, so much peace...when I got here, I knew I needed it, I just needed sleep, it will be worth it, because I know whatever's on the other end of this is gonna be really great." Sleep Information Total Hours of Sleep: 5.00 Meal Information Percent of Breakfast Consumed: 100 Percent of Lunch Consumed: 90 Percent of Dinner Consumed: 100 Mental Status Exam During interview pt is: alert and oriented, cooperative, guarded (give inconsistent reports, denies pyschotic symptoms he previously endorsed) Appearance: appropriately dressed, other (poor hygiene, malodorous, unkempt) Eye contact is: fair Motor behavior is: no abnormal motor movements Speech: normal in rate, rhythm & volume (monotone) Affect: blunted Mood is: other ("fine") Thought process: tangential, looseness of associations, incoherent (at times, disorganized, unable to follow, vague statements) Thought content: paranoid, delusions (about mother being the devil, that he can easily find work) Suicidal thought are: denied Homicidal thoughts are: denied Hallucinations: auditory (although he denies AVH today, he admitted to staff that he is hearing voices and seeing holograms of people, and is actievly responding to internal stimuli), visual, other (appears to be responding to internal stimuli, talking and laughing to himself) Cognition: language grossly intact, other (impaired attention and memory) Intelligence estimated to be: consistent with level of education Insight: severely impaired Judgement: severely impaired Impression 21 yo male with recent admit for paranoid and disorganized behavior, stabilized to no longer meet involuntary commitment criteria on Risperdal, and discharged to outpatient care. He rapidly declined outside the hospital over the next week, and admits he did not fill his prescription or keep any of his follow up appointments. He re-presented with psychosis and inability to care for himself after his roommate and neighbors contacted his father, who came to [place] and brought him to the ER. He was admitted on a 201, but has a backup 302 petition. Symptoms consistent with schizophreniform disorder given duration/ course, suspect paranoid schizophrenia will be his eventual diagnosis. Due to ongoing psychosis, lack of insight, and unwillingness to accept treatment recommendations, will file for a 304 commitment, with a hearing next week, and plan to transition to an outpatient commitment at discharge. 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 Fasting labs for monitoring on an atypical performed earlier this month during previous hospitalization and were WNLs. 10/18 - Increase risperidone to 1mg qam and 4mg qhs. Recommend MENDIOLA, which he is declining. Consta is nonformulary, but if he is willing could consider Sustenna , if approved by insurance. 10/19 - Continue risperidone, exploring options for MENDIOLA. Consta is nonformulary, and Sustenna is available at the hospital but not covered by his insurance. Attempting to get PA forms, but insurance company is closed due to holiday today. Consider filing for a 304 commitment and converting to outpatient commitment at discharge. Will need family meeting with both parents once he is able to tolerate it. 10/20 - Staff attempting to contact insurance [employer] for prior auth forms for Sustenna. Continue risperidone in the interim. pit worker power shovel to contact parents and schedule family meeting to discuss challenges due to his lack of insight and unwillingness for treatment. (2) Noncompliance with medications injectable discussed last hospitalization and patient declined would benefit from case fitter if stays in area, little support locally 10/18 - Consider 304 commitment to convert to outpatient commitment at discharge, given poor insight and compliance - Admits he did not go to therapy (Octavio at [facility]) or psychiatry appointments (Nataly Griffin at [facility]) that were arranged during last hospitalization 10/20 - File for 304 commitment. - Refer for outpatient case management, as will be discharged on a 304 commitment. Discharge / Aftercare Planning Psychiatrist: Name: [facility] Therapist: Name: [facility] Visit Code E&M Code: 91305 Inventory Assets Strengths: both parents desire to play role in care, college graduate/previously employed Needs: increase insight into condition and treatment needs Risk Factors Assessment Male: Yes /single/: Yes Mental Health Diagnoses: Yes Previous attempt: No Previous psychiatric stay: Yes Protective Factors Assessment Supportive family: Yes Data Vital Signs Last 24 Hrs: Date Time Temp Pulse Resp B/P Pulse Ox O2 Delivery O2 Flow Rate FiO2 10/20/16 06:51 36.8 62 16 117/67 80 119/77 Meds Administered Last 24 Hrs: Meds Administered (Past 24Hrs) Medications (Trade) Dose Ordered Sig/Gallito Route Start Time Stop Time Status Last Admin Dose Admin Risperidone (Risperdal Tab) 4 mg HS PO 10/18/16 22:00 11/17/16 21:59 10/19/16 21:34 4 MG Benztropine Mesylate (Cogentin Tab) 1 mg Q4H PRN PO 10/18/16 13:45 11/17/16 13:44 10/19/16 14:20 1 MG
[2016-10-20] MEDS: RISPERIDONE 2 MG TAB PO SCH (21:16)
[2016-10-21 06:46] VITALS: BP_SYST 103; BP_SYST 111; BP_DIAS 64; BP_DIAS 72; PULSE 64; PULSE 82; TEMP 36.4
[2016-10-21] MEDS: RISPERIDONE 1 MG TAB PO SCH (08:29)
--- NOTE | 2016-10-21 10:55 | Psychiatric Progress Notes ---
Progress Note Date of Service Oct 21, 2016. Interval History 21 y/o single male who lives in [place] with a roommate, has a history of psychosis and noncompliance with treatment, who was just discharged from the [facility] on 10/09/16 and re-presented 10/16/16 with psychosis and disorganization and was admitted voluntarily, with a backup 302 petition from his father. He admits he did not attend outpatient appointments or take medications after discharge from the [facility], saying he doesn't think there is anything wrong with him. Chief Complaint "I'm really tired.". Subjective Patient was seen & assessed interval progress reviewed with Treatment Team. Parish says that he is really tired today and is having trouble keeping his eyes open. he wants to know, "What's next?" in terms of his treatment. I inform him that we have sent a letter requesting preauth of Invega Sustenna but have not heard back. He admits that he has command hallucinations that "come and go " and denies hearing them at this time, and I encourage him to be honest about them when they occur. He reports that in addition to feeling tired he also has some restlessness in his legs that makes him want to get up. He felt that the phone meeting with his parents yesterday went well. He denies SI/HI. Nursing reports that he has had only minimal participation in group, usually getting up and leaving early. He has been seen talking to himself, responding to internal stimuli. He is aware that we have filed for a 304 and will have a hearing on Wednesday. Review of Systems Constitutional: + fatigue ENT: No dental problems, No hearing loss, No nasal symptoms, No problem reported, No sore throat, No tinnitus, No trouble swallowing, No unusual epistaxis Respiratory: No cough, No dyspnea at rest, No dyspnea on exertion, No hemoptysis, No problem reported, No shortness of breath, No sputum, No wheezing Cardiovascular: No PND, No chest pain, No claudication, No edema, No orthopnea , No palpitations, No problem reported Abdomen: No GI bleeding, No constipation, No diarrhea, No nausea, No pain, No problem reported, No vomiting Musculoskeletal: No calf pain, No joint pain, No muscle pain, No problem reported, No swelling Neurologic: No balance problems, No memory loss, No numbness/tingling, No paralysis, No problem reported, No vertigo, No weakness Psychiatric: + problem reported (Intermittant command hallucinations) Integumentary: No bleeding, No color change, No itch, No new/changing skin lesions, No problem reported, No rash Medication Side Effects: fatigue and restlessness 10/21 Sleep Information Total Hours of Sleep: 5.00 Meal Information Percent of Breakfast Consumed: 100 Percent of Lunch Consumed: 100 Percent of Dinner Consumed: 100 Mental Status Exam During interview pt is: alert and oriented, cooperative Appearance: appropriately dressed, appropriately groomed, other (poor hygiene, malodorous, unkempt) Eye contact is: poor (tired and eyes closing) Motor behavior is: no abnormal motor movements, other (reports restlessness) Speech: other (tired sounding) Affect: blunted (tired) Mood is: other (tired) Thought process: goal directed Thought content: paranoid, delusions (about mother being the devil, that he can easily find work) Suicidal thought are: denied Homicidal thoughts are: denied Hallucinations: auditory (admits to intermittant command hallucinations, not at present), visual, other (appears to be responding to internal stimuli, talking and laughing to himself) Cognition: language grossly intact, other (impaired attention and memory) Intelligence estimated to be: consistent with level of education Insight: severely impaired Judgement: severely impaired Impression Patient now more consistently admitting to aud and vis hallucinations. Is having fatigue and akathesia today, so will order Artane 5 mg. daily to target akathesia. We have sent a letter requesting preauth of Invega Sustenna to facilitate medication compliance, but have not heard back. We have scheduled a 304 hearing for Wednesday, as we believe he continues to require treatment, and will then convert this to an OP commitment at discharge. Continued Inpatient Care The patient requires inpatient treatment due to the severity of his condition and inability to manipulate information in a reality based manner. 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 Fasting labs for monitoring on an atypical performed earlier this month during previous hospitalization and were WNLs. 10/18 - Increase risperidone to 1mg qam and 4mg qhs. Recommend MENDIOLA, which he is declining. Javier is nonformulary, but if he is willing could consider Sustenna , if approved by insurance. 10/19 - Continue risperidone, exploring options for MENDIOLA. Javier is nonformulary, and Sustenna is available at the hospital but not covered by his insurance. Attempting to get PA forms, but insurance company is closed due to holiday today. Consider filing for a 304 commitment and converting to outpatient commitment at discharge. Will need family meeting with both parents once he is able to tolerate it. 10/20 - Staff attempting to contact insurance company for prior auth forms for Sustenna. Continue risperidone in the interim. shake out worker to contact parents and schedule family meeting to discuss challenges due to his lack of insight and unwillingness for treatment. 10/21 - Awaiting response from [employer] re: Cari - Continue Risperdal 4 mg. HS f or now. - Family meeting held yesterday with both parents who are now talking together to consider options for housing and treatment - 304 hearing scheduled for Wednesday at 0930 (2) Noncompliance with medications injectable discussed last hospitalization and patient declined would benefit from rifle case repairer if stays in area, little support locally 10/18 - Consider 304 commitment to convert to outpatient commitment at discharge, given poor insight and compliance - Admits he did not go to therapy (Octavio at [facility]) or psychiatry appointments (Nataly Griffin at [facility]) that were arranged during last hospitalization 10/20 - File for 304 commitment. - Refer for outpatient case management, as will be discharged on a 304 commitment. 10/21 - [employer] insurance response re: Erica carrion Discharge / Aftercare Planning Psychiatrist: Name: [facility] Therapist: Name: [facility] Visit Code E&M Code: 20556 Inventory Assets Strengths: both parents desire to play role in care, college graduate/previously employed Needs: increase insight into condition and treatment needs Risk Factors Assessment Male: Yes /single/: Yes Mental Health Diagnoses: Yes Previous attempt: No Previous psychiatric stay: Yes Protective Factors Assessment Supportive family: Yes Data Vital Signs Last 24 Hrs: Date Time Temp Pulse Resp B/P Pulse Ox O2 Delivery O2 Flow Rate FiO2 10/21/16 06:46 36.4 64 16 103/64 82 111/72 Meds Administered Last 24 Hrs: Current Inpatient Medications Medications (Trade) Dose Ordered Sig/Gallito Route Start Time Stop Time Status Last Admin Dose Admin Risperidone (Risperdal Tab) 1 mg QAM PO 10/17/16 09:00 11/16/16 08:59 10/21/16 08:29 1 MG Acetaminophen (Tylenol Tab) 650 mg Q4H PRN PO 10/17/16 10:30 11/16/16 10:29 Bismuth Subsalicylate (Kaopectate Liqd) 15 ml PRN PRN PO 10/17/16 10:30 11/16/16 10:29 Al Hydroxide/Mg Hydroxide (Maalox Susp) 30 ml Q4H PRN PO 10/17/16 10:30 11/16/16 10:29 Magnesium Hydroxide (Milk Of Magnesia Susp) 30 ml DAILY PRN PO 10/17/16 10:30 11/16/16 10:29 Sodium Chloride ([place] Nasal [place]) PRN PRN NA 10/17/16 10:30 11/16/16 10:29 Hydroxyzine HCl (Vistaril Tab) 50 mg HSZ PRN PO 10/17/16 10:30 11/16/16 10:29 Hydroxyzine HCl (Vistaril Tab) 25 mg Q4H PRN PO 10/17/16 10:30 11/16/16 10:29 Haloperidol (Haldol Tab) 5 mg Q4H PRN PO 10/17/16 10:30 11/16/16 10:29 Haloperidol Lactate (Haldol Inj) 5 mg Q4 PRN IM 10/17/16 10:30 11/16/16 10:29 Risperidone (Risperdal Tab) 4 mg HS PO 10/18/16 22:00 11/17/16 21:59 10/20/16 21:16 4 MG Benztropine Mesylate (Cogentin Tab) 1 mg Q4H PRN PO 10/18/16 13:45 11/17/16 13:44 10/19/16 14:20 1 MG Lab Results Last 24 Hrs: 10/16/16 21:51 Red Blood Count 4.60, Mean Corpuscular Volume 88.0, Mean Corpuscular Hemoglobin 32.0, Mean Corpuscular Hemoglobin Concent 36.3, Mean Platelet Volume 9.7, Neutrophils (%) (Auto) 65.9, Lymphocytes (%) (Auto) 22.3, Monocytes (%) (Auto) 10.0, Eosinophils (%) (Auto) 1.2, Basophils (%) (Auto) 0.3, Neutrophils # (Auto ) 4.33, Lymphocytes # (Auto) 1.47, Monocytes # (Auto) 0.66, Eosinophils # (Auto ) 0.08, Basophils # (Auto) 0.02 10/16/16 21:51 Test 10/16/16 21:51 10/16/16 23:38 White Blood Count 6.58 K/uL (4.8-10.8) Red Blood Count 4.60 M/uL (4.7-6.1) Hemoglobin 14.7 g/dL (14.0-18.0) Hematocrit 40.5 % (42-52) Mean Corpuscular Volume 88.0 fL (80-100) Mean Corpuscular Hemoglobin 32.0 pg (25-34) Mean Corpuscular Hemoglobin Concent 36.3 g/dl (32-36) Platelet Count 220 K/uL (130-400) Mean Platelet Volume 9.7 fL (7.4-10.4) Neutrophils (%) (Auto) 65.9 % Lymphocytes (%) (Auto) 22.3 % Monocytes (%) (Auto) 10.0 % Eosinophils (%) (Auto) 1.2 % Basophils (%) (Auto) 0.3 % Neutrophils # (Auto) 4.33 K/uL (1.4-6.5) Lymphocytes # (Auto) 1.47 K/uL (1.2-3.4) Monocytes # (Auto) 0.66 K/uL (0.11-0.59) Eosinophils # (Auto) 0.08 K/uL (0-0.5) Basophils # (Auto) 0.02 K/uL (0-0.2) RDW Standard Deviation 41.4 fL (36.4-46.3) RDW Coefficient of Variation 13.0 % (11.5-14.5) Immature Granulocyte % (Auto) 0.3 % Immature Granulocyte # (Auto) 0.02 K/uL (0.00-0.02) Anion Gap 11.0 mmol/L (3-11) Est Creatinine Clear Calc Drug Dose 147.9 ml/min Estimated GFR () 147.5 Estimated GFR (Non- 127.2 BUN/Creatinine Ratio 11.8 (10-20) Calcium Level 9.0 mg/dl (8.5-10.1) Total Bilirubin 1.5 mg/dl (0.2-1) Direct Bilirubin 0.4 mg/dl (0-0.2) Aspartate Amino Transf (AST/SGOT) 30 U/L (15-37) Alanine Aminotransferase (ALT/SGPT) 33 U/L (12-78) Alkaline Phosphatase 61 U/L (45-117) Total Protein 7.3 gm/dl (6.4-8.2) Albumin 4.2 gm/dl (3.4-5.0) Globulin 3.1 gm/dl (2.5-4.0) Albumin/Globulin Ratio 1.4 (0.9-2) Thyroid Stimulating Hormone (TSH) 0.678 uIu/ml (0.300-4.500) Ethyl Alcohol mg/dL < 3.0 mg/dl (0-3) Urine Color DK YELLOW Urine Appearance CLOUDY (CLEAR) Urine pH 6.0 (4.5-7.5) Urine Specific [place] 1.024 (1.000-1.030) Urine Protein NEG (NEG) Urine Glucose (UA) NEG (NEG) Urine Ketones 1+ (NEG) Urine Occult Blood NEG (NEG) Urine Nitrite NEG (NEG) Urine Bilirubin NEG (NEG) Urine Urobilinogen NEG (NEG) Urine Leukocyte Esterase NEG (NEG) Urine WBC (Auto) 1-5 /hpf (0-5) Urine RBC (Auto) 0-4 /hpf (0-4) Urine Hyaline Casts (Auto) 5-10 /lpf (0-5) Urine Epithelial Cells (Auto) 20-30 /lpf (0-5) Urine Bacteria (Auto) NEG (NEG) Urine Opiates Screen NEG (NEG) Urine Methadone, Qualitative NEG (NEG) Urine Barbiturates NEG (NEG) Urine Phencyclidine (PCP) Level NEG (NEG) Ur Amphetamine/Methamphetamine NEG (NEG) MDMA (Ecstasy) Screen NEG (NEG) Urine Benzodiazepines Screen NEG (NEG) Urine Cocaine Metabolite NEG (NEG) Urine Marijuana (THC) NEG (NEG)
[2016-10-21] MEDS ORDERED: TRIHEXYPHENIDYL HCL 2 MG TAB PO ONE (12:59)
[2016-10-21] MEDS: RISPERIDONE 2 MG TAB PO SCH (22:13)
[2016-10-22 06:53] VITALS: BP_SYST 103; BP_SYST 105; BP_DIAS 62; BP_DIAS 65; PULSE 66; PULSE 97; TEMP 36.6
[2016-10-22] MEDS: RISPERIDONE 1 MG TAB PO SCH (08:26)
--- NOTE | 2016-10-22 08:51 | Psychiatric Progress Notes ---
Progress Note Date of Service Oct 22, 2016. Interval History 21 y/o single male who lives in [place] with a roommate, has a history of psychosis and noncompliance with treatment, who was just discharged from the [facility] on 10/09/16 and re-presented 10/16/16 with psychosis and disorganization and was admitted voluntarily, with a backup 302 petition from his father. He admits he did not attend outpatient appointments or take medications after discharge from the [facility], saying he doesn't think there is anything wrong with him. Chief Complaint "I'm hungry.". Subjective Patient was seen & assessed interval progress reviewed with Treatment Team. The patient says that he has had a small improvement to his restlessness with the Artane, but is still observed to be pacing and standing moving his legs back and forth. He says that he is not hearing clear voices today, but describes it more like a sensation or perception. He spoke with his father by phone yesterday who provided him "words of support". Father is attempting to arrange for the patient to come to [place] to stay with him, but per patient, a number of accommodations have to be accomplished first. Parish says that he would like to go stay with dad since going to his apartment did not work last discharge. He denies vis hallucinations. Denies SI/HI. Review of Systems Constitutional: + fatigue ENT: No dental problems, No hearing loss, No nasal symptoms, No problem reported, No sore throat, No tinnitus, No trouble swallowing, No unusual epistaxis Respiratory: No cough, No dyspnea at rest, No dyspnea on exertion, No hemoptysis, No problem reported, No shortness of breath, No sputum, No wheezing Cardiovascular: No PND, No chest pain, No claudication, No edema, No orthopnea , No palpitations, No problem reported Abdomen: No GI bleeding, No constipation, No diarrhea, No nausea, No pain, No problem reported, No vomiting Musculoskeletal: No calf pain, No joint pain, No muscle pain, No problem reported, No swelling Neurologic: + problem reported (restlessness) Psychiatric: + problem reported (voices improving, episode and less distinct) Integumentary: No bleeding, No color change, No itch, No new/changing skin lesions, No problem reported, No rash Medication Side Effects: fatigue and restlessness 10/21 Sleep Information Total Hours of Sleep: 5.00 Meal Information Percent of Breakfast Consumed: 100 Percent of Lunch Consumed: 100 Percent of Dinner Consumed: 100 Mental Status Exam During interview pt is: alert and oriented, cooperative Appearance: appropriately dressed, appropriately groomed, other (poor hygiene, malodorous, unkempt) Eye contact is: poor (tired and eyes closing) Motor behavior is: no abnormal motor movements, other (reports restlessness) Speech: other (tired sounding) Affect: blunted (tired) Mood is: other (tired) Thought process: goal directed Thought content: delusions (about mother being the devil, that he can easily find work) Suicidal thought are: denied Homicidal thoughts are: denied Hallucinations: auditory (admits to intermittant command hallucinations, not at present), denies visual, other (appears to be responding to internal stimuli , talking and laughing to himself) Cognition: language grossly intact, other (impaired attention and memory) Intelligence estimated to be: consistent with level of education Insight: severely impaired Judgement: severely impaired Impression Still with auditory experiences, but less distinct. He is being more reasonable about going to stay with his father, but continues to refuse to go to mother's saying that it "would be a step backwards". Insurance has denied Invega Sustenna, so nursing will explore with them what MENDIOLA's are covered so that we can proceed. Will have a 304 hearing on Wednesday at 0930, initially inpatient, but will then convert to OP. Continued Inpatient Care The patient requires inpatient treatment due to the severity of his condition and inability to manipulate information in a reality based manner. 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 Fasting labs for monitoring on an atypical performed earlier this month during previous hospitalization and were WNLs. 10/18 - Increase risperidone to 1mg qam and 4mg qhs. Recommend MENDIOLA, which he is declining. Consta is nonformulary, but if he is willing could consider Sustenna , if approved by insurance. 10/19 - Continue risperidone, exploring options for MENDIOLA. Consta is nonformulary, and Sustenna is available at the hospital but not covered by his insurance. Attempting to get PA forms, but insurance company is closed due to holiday today. Consider filing for a 304 commitment and converting to outpatient commitment at discharge. Will need family meeting with both parents once he is able to tolerate it. 10/20 - Staff attempting to contact insurance company for prior auth forms for Cari. Continue risperidone in the interim. steelworker to contact parents and schedule family meeting to discuss challenges due to his lack of insight and unwillingness for treatment. 10/21 - Awaiting response from insurance [employer] re: Sustenna - Continue Risperdal 4 mg. HS f or now. - Family meeting held yesterday with both parents who are now talking together to consider options for housing and treatment - 304 hearing scheduled for Wednesday at 0930 10/22 - Invega Cari denied by insurance. Will explore MENDIOLA's that are covered. - Continue to explore disposition to [place] with father - Increase Artane to 5 mg. daily for akathisia (2) Noncompliance with medications injectable discussed last hospitalization and patient declined would benefit from social work case manager if stays in area, little support locally 10/18 - Consider 304 commitment to convert to outpatient commitment at discharge, given poor insight and compliance - Admits he did not go to therapy (Octavio at [facility]) or psychiatry appointments (Nataly Griffin at [facility]) that were arranged during last hospitalization 10/20 - File for 304 commitment. - Refer for outpatient case management, as will be discharged on a 304 commitment. 10/21 - [employer] insurance response re: Erica carrion Discharge / Aftercare Planning Psychiatrist: Name: [facility] Therapist: Name: [facility] Visit Code E&M Code: 71461 Inventory Assets Strengths: both parents desire to play role in care, college graduate/previously employed Needs: increase insight into condition and treatment needs Risk Factors Assessment Male: Yes : No /single/: Yes Higher / Fall in social status: No Access to guns: No Health problems: No Mental Health Diagnoses: Yes Substance use disorders: No Previous attempt: No Previous psychiatric stay: Yes Protective Factors Assessment Evangelical beliefs: No : No Responsible for young children: No Employed: Yes Stable relationships: No Supportive family: Yes Data Vital Signs Last 24 Hrs: Date Time Temp Pulse Resp B/P Pulse Ox O2 Delivery O2 Flow Rate FiO2 10/22/16 06:53 36.6 66 16 105/62 97 103/65 Meds Administered Last 24 Hrs: Meds Administered (Past 24Hrs) Medications (Trade) Dose Ordered Sig/Gallito Route Start Time Stop Time Status Last Admin Dose Admin Trihexyphenidyl HCl (Artane Tab) 2 mg QAM PO 10/22/16 09:00 11/21/16 08:59 10/22/16 08:26 2 MG Trihexyphenidyl HCl (Artane Tab) 2 mg 1259 ONCE PO 10/21/16 12:59 10/21/16 13:04 DC 10/21/16 13:17 2 MG
[2016-10-22] MEDS ORDERED: TRIHEXYPHENIDYL HCL 2 MG TAB PO SCH (09:00)
[2016-10-22] MEDS ORDERED: TRIHEXYPHENIDYL HCL 2 MG TAB PO ONE (09:05)
[2016-10-22] MEDS: TRIHEXYPHENIDYL HCL 2 MG TAB PO SCH (10:18)
[2016-10-22] MEDS: RISPERIDONE 2 MG TAB PO SCH (22:12)
[2016-10-23 06:57] VITALS: BP_SYST 107; BP_SYST 117; BP_DIAS 68; BP_DIAS 76; PULSE 75; PULSE 89; TEMP 36.6
--- NOTE | 2016-10-23 09:29 | Psychiatric Progress Notes ---
Progress Note Date of Service Oct 23, 2016. Interval History 21 y/o single male who lives in [place] with a roommate, has a history of psychosis and noncompliance with treatment, who was just discharged from the [facility] on 10/09/16 and re-presented 10/16/16 with psychosis and disorganization and was admitted voluntarily, with a backup 302 petition from his father. He admits he did not attend outpatient appointments or take medications after discharge from the [facility], saying he doesn't think there is anything wrong with him. Chief Complaint "I said what I needed to to get out, I do hear and see things". Subjective Patient was seen & assessed interval progress reviewed with Treatment Team. Parish admits to fleeting visual malik, won't specifically describe but states just "dark, evil" things. He is able to ignore aud malik but states that he believes he can sense people's energy and auras. He is clearly less restless/ more organized than on previous contacts. He states that he has some shoulder tightness but no cogwheeling/EPS on exam, attributes to fatigue and is requesting Risperdal shift all to so that he can better participate in groups. Remains open to injectables, reviewed that waiting on assistance from company re: Invega auth today to start oral/cross over vs consideration for PO haldol with plan for decanoate if affordable option for family as plan doesn't usually cover injectables. Review of Systems Psych: denies symptoms other than stated above Constitutional: denied other than stated above Cardiovascular: denied GI: denied Neurologic: denied Remainder of 10 body systems also reviewed and denied other than noted above. Medication Side Effects: fatigue and restlessness 10/21 Sleep Information Total Hours of Sleep: 2.25 Meal Information Percent of Breakfast Consumed: 100 Percent of Lunch Consumed: 90 Percent of Dinner Consumed: 100 Mental Status Exam During interview pt is: alert and oriented, cooperative Appearance: appropriately dressed, appropriately groomed Eye contact is: fair Motor behavior is: no abnormal motor movements Speech: other (tired sounding) Affect: blunted Mood is: other ("OK") Thought process: goal directed Thought content: delusions Suicidal thought are: denied Homicidal thoughts are: denied Hallucinations: auditory (admits to intermittant command hallucinations, not at present), denies visual Cognition: language grossly intact, other (impaired attention and memory) Intelligence estimated to be: consistent with level of education Insight: impaired Judgement: impaired Impression Still with auditory experiences, but less distinct. He is being more reasonable about going to stay with his father, but continues to refuse to go to mother's saying that it "would be a step backwards". Insurance has denied Invega Sustenna, so nursing will explore with them what MENDIOLA's are covered so that we can proceed. Will have a 304 hearing on Wednesday at 0930, initially inpatient, but will then convert to OP. Continued Inpatient Care The patient requires inpatient treatment due to the severity of his condition and inability to manipulate information in a reality based manner. 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 Fasting labs for monitoring on an atypical performed earlier this month during previous hospitalization and were WNLs. 10/18 - Increase risperidone to 1mg qam and 4mg qhs. Recommend MENDIOLA, which he is declining. Consta is nonformulary, but if he is willing could consider Sustenna , if approved by insurance. 10/19 - Continue risperidone, exploring options for MENDIOLA. Constamina is nonformulary, and Sustenna is available at the hospital but not covered by his insurance. Attempting to get PA forms, but insurance company is closed due to holiday today. Consider filing for a 304 commitment and converting to outpatient commitment at discharge. Will need family meeting with both parents once he is able to tolerate it. 10/20 - Staff attempting to contact insurance company for prior auth forms for Sustenna. Continue risperidone in the interim. 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 10/21 - Awaiting response from insurance company re: Sustenna - Continue Risperdal 4 mg. HS f or now. - Family meeting held yesterday with both parents who are now talking together to consider options for housing and treatment - 304 hearing scheduled for Wednesday at 0930 10/22 - Invega Sustenna denied by insurance. Will explore MENDIOLA's that are covered. - Continue to explore disposition to [place] with father - Increase Artane to 5 mg. 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 - Refer for outpatient case management, as will be discharged on a 304 commitment. 10/21 - [employer] insurance response re: Invega sustenna Discharge / Aftercare Planning Psychiatrist: Name: [facility] Therapist: Name: [facility] Visit Code E&M Code: 59928 Inventory Assets Strengths: both parents desire to play role in care, college graduate/previously employed Needs: increase insight into condition and treatment needs Risk Factors Assessment Male: Yes : No /single/: Yes Higher / Fall in social status: No Access to guns: No Health problems: No Mental Health Diagnoses: Yes Substance use disorders: No Previous attempt: No Previous psychiatric stay: Yes Protective Factors Assessment Congregational beliefs: No : No Responsible for young children: No Employed: Yes Stable relationships: No Supportive family: Yes Data Vital Signs Last 24 Hrs: Date Time Temp Pulse Resp B/P Pulse Ox O2 Delivery O2 Flow Rate FiO2 10/23/16 06:57 36.6 75 16 107/68 89 117/76 Meds Administered Last 24 Hrs: Meds Administered (Past 24Hrs) Medications (Trade) Dose Ordered Sig/Gallito Route Start Time Stop Time Status Last Admin Dose Admin Trihexyphenidyl HCl (Artane Tab) 2 mg QAM PO 10/22/16 09:00 10/22/16 09:00 DC 10/22/16 08:26 2 MG Trihexyphenidyl HCl (Artane Tab) 2 mg 1259 ONCE PO 10/21/16 12:59 10/21/16 13:04 DC 10/21/16 13:17 2 MG Trihexyphenidyl HCl (Artane Tab) 3 mg NOW ONCE PO 10/22/16 09:05 10/22/16 09:06 DC 10/22/16 10:44 3 MG
[2016-10-23] MEDS: RISPERIDONE 1 MG TAB PO SCH (09:35)
[2016-10-23] MEDS: TRIHEXYPHENIDYL HCL 2 MG TAB PO SCH (09:35)
[2016-10-23] MEDS: RISPERIDONE 2 MG TAB PO SCH (22:00)
[2016-10-24 06:50] VITALS: BP_SYST 96; BP_SYST 98; BP_DIAS 57; BP_DIAS 61; PULSE 67; PULSE 87; TEMP 36.4
[2016-10-24] MEDS: TRIHEXYPHENIDYL HCL 2 MG TAB PO SCH (08:21)
--- NOTE | 2016-10-24 08:57 | Psychiatric Progress Notes ---
Progress Note Date of Service Oct 24, 2016. Interval History 21 y/o single male who lives in [place] with a roommate, has a history of psychosis and noncompliance with treatment, who was just discharged from the [facility] on 10/09/16 and re-presented 10/16/16 with psychosis and disorganization and was admitted voluntarily, with a backup 302 petition from his father. He admits he did not attend outpatient appointments or take medications after discharge from the [facility], saying he doesn't think there is anything wrong with him. Chief Complaint "I'm dealing with it", referring to ongoing auditory and visual malik Subjective Patient was seen & assessed interval progress reviewed with nursing. Patient states yesterday was "fine", very nonspecific in describing what he is hearing/ seeing. Staff deny response to internal stimuli. Less pacing. Still c/o sedation today (Risperdal shifted to hs). Review of Systems Psych: denies symptoms other than stated above Constitutional: denied other than stated above. Cardiovascular: denied GI: denied Neurologic: denied Medication Side Effects: fatigue and restlessness 10/21 Sleep Information Total Hours of Sleep: 3.50 Meal Information Percent of Breakfast Consumed: 100 Percent of Lunch Consumed: 90 Percent of Dinner Consumed: 100 Mental Status Exam During interview pt is: alert and oriented, cooperative Appearance: appropriately dressed, appropriately groomed Eye contact is: fair Motor behavior is: no abnormal motor movements Speech: other (tired sounding) Affect: blunted Mood is: other ("OK") Thought process: goal directed Thought content: delusions Suicidal thought are: denied Homicidal thoughts are: denied Hallucinations: auditory (admits to intermittant command hallucinations, not at present), denies visual Cognition: language grossly intact, other (impaired attention and memory) Intelligence estimated to be: consistent with level of education Insight: impaired Judgement: impaired Impression Still with auditory experiences, but less distinct. He is being more reasonable about going to stay with his father, but continues to refuse to go to mother's saying that it "would be a step backwards". Insurance has denied Invega Sustenna, so nursing will explore with them what MENDIOLA's are covered so that we can proceed. Will have a 304 hearing on Wednesday at 0930, initially inpatient, but will then convert to OP. Continued Inpatient Care The patient requires inpatient treatment due to the severity of his condition and inability to manipulate information in a reality based manner. 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 Fasting labs for monitoring on an atypical performed earlier this month during previous hospitalization and were WNLs. 10/18 - Increase risperidone to 1mg qam and 4mg qhs. Recommend MENDIOLA, which he is declining. Consta is nonformulary, but if he is willing could consider Sustenna , if approved by insurance. 10/19 - Continue risperidone, exploring options for MENDIOLA. Consta is nonformulary, and Sustenna is available at the hospital but not covered by his insurance. Attempting to get PA forms, but insurance company is closed due to holiday today. Consider filing for a 304 commitment and converting to outpatient commitment at discharge. Will need family meeting with both parents once he is able to tolerate it. 10/20 - Staff attempting to contact insurance [employer] for prior auth forms for Sustenna. Continue risperidone in the interim. abrasive worker to contact parents and schedule family meeting to discuss challenges due to his lack of insight and unwillingness for treatment. 10/21 - Awaiting response from insurance [employer] re: Sustenna - Continue Risperdal 4 mg. HS f or now. - Family meeting held yesterday with both parents who are now talking together to consider options for housing and treatment - 304 hearing scheduled for Wednesday at 0930 10/22 - Invega Sustenna denied by insurance. Will explore MENDIOLA's that are covered. - Continue to explore disposition to [place] with father - Increase Artane to 5 mg. daily for akathisia 10/23 shift Risperdal to hs, still awaiting consideration for Invega trial as need for MENDIOLA, if denied likely to proceed with Haldol 10/24--patient agreeable to add low dose Haldol for residual symptoms pending outcome of MENDIOLA auth, Risperdal could then be switched to Invega if covered, if not will explore cause of Haldol decanoate. Will dose am and pm meal with Risperdal at hs. (2) Noncompliance with medications injectable discussed last hospitalization and patient declined would benefit from casework specialist if stays in area, little support locally 10/18 - Consider 304 commitment to convert to outpatient commitment at discharge, given poor insight and compliance - Admits he did not go to therapy (Octavio at [facility]) or psychiatry appointments (Nataly Griffin at [facility]) that were arranged during last hospitalization 10/20 - File for 304 commitment. - Refer for outpatient case management, as will be discharged on a 304 commitment. 10/21 - [employer] insurance response re: Invega sheyla Discharge / Aftercare Planning Psychiatrist: Name: [facility] Therapist: Name: [facility] Visit Code E&M Code: 43077 Inventory Assets Strengths: both parents desire to play role in care, college graduate/previously employed Needs: increase insight into condition and treatment needs Risk Factors Assessment Male: Yes : No /single/: Yes Higher / Fall in social status: No Access to guns: No Health problems: No Mental Health Diagnoses: Yes Substance use disorders: No Previous attempt: No Previous psychiatric stay: Yes Protective Factors Assessment Episcopalian beliefs: No : No Responsible for young children: No Employed: Yes Stable relationships: No Supportive family: Yes Data Vital Signs Last 24 Hrs: Date Time Temp Pulse Resp B/P Pulse Ox O2 Delivery O2 Flow Rate FiO2 10/24/16 06:50 36.4 67 16 96/57 87 98/61 Meds Administered Last 24 Hrs: Meds Administered (Past 24Hrs) Medications (Trade) Dose Ordered Sig/Gallito Route Start Time Stop Time Status Last Admin Dose Admin Trihexyphenidyl HCl (Artane Tab) 2 mg QAM PO 10/22/16 09:00 10/22/16 09:00 DC 10/22/16 08:26 2 MG Trihexyphenidyl HCl (Artane Tab) 5 mg QAM PO 10/22/16 09:00 11/21/16 08:59 10/24/16 08:21 5 MG Trihexyphenidyl HCl (Artane Tab) 3 mg NOW ONCE PO 10/22/16 09:05 10/22/16 09:06 DC 10/22/16 10:44 3 MG Risperidone (Risperdal Tab) 5 mg HS PO 10/23/16 22:00 11/22/16 21:59 10/23/16 22:00 5 MG
[2016-10-24] MEDS: HALOPERIDOL 1 MG TAB PO SCH ×2 (09:38→17:10)
[2016-10-24] MEDS: RISPERIDONE 2 MG TAB PO SCH (21:04)
[2016-10-25 06:47] VITALS: BP_SYST 104; BP_SYST 112; BP_DIAS 67; BP_DIAS 72; PULSE 65; PULSE 82; TEMP 36.5
[2016-10-25] MEDS: TRIHEXYPHENIDYL HCL 2 MG TAB PO SCH (08:43)
[2016-10-25] MEDS: HALOPERIDOL 1 MG TAB PO SCH ×2 (08:43→17:15)
--- NOTE | 2016-10-25 09:41 | Psychiatric Progress Notes ---
Progress Note Date of Service Oct 25, 2016. Interval History 21 y/o single male who lives in [place] with a roommate, has a history of psychosis and noncompliance with treatment, who was just discharged from the [facility] on 10/09/16 and re-presented 10/16/16 with psychosis and disorganization and was admitted voluntarily, with a backup 302 petition from his father. He admits he did not attend outpatient appointments or take medications after discharge from the [facility], saying he doesn't think there is anything wrong with him. Chief Complaint "They come and go.". Subjective Patient was seen & assessed interval progress reviewed with nursing. The patient spent a lot of time isolating in his room yesterday per nursing. He admits that he was hearing voices yesterday, but denies that they were telling him to hurt himself. He indicates that they come and go without any pattern, and that he is committed to continuing with treatment as he thinks that the meds are helping. He describes having hallucinations as "bizarre". He denies visual experiences, SI or HI. He continues to complain of daytime sedation making it hard to stay awake in groups. Review of Systems Constitutional: + fatigue ENT: No dental problems, No hearing loss, No nasal symptoms, No problem reported, No sore throat, No tinnitus, No trouble swallowing, No unusual epistaxis Respiratory: No cough, No dyspnea at rest, No dyspnea on exertion, No hemoptysis, No problem reported, No shortness of breath, No sputum, No wheezing Cardiovascular: No PND, No chest pain, No claudication, No edema, No orthopnea , No palpitations, No problem reported Abdomen: No GI bleeding, No constipation, No diarrhea, No nausea, No pain, No problem reported, No vomiting Musculoskeletal: No calf pain, No joint pain, No muscle pain, No problem reported, No swelling Neurologic: No balance problems, No memory loss, No numbness/tingling, No paralysis, No problem reported, No vertigo, No weakness Psychiatric: + problem reported (aud hallucinations) Medication Side Effects: fatigue and restlessness 10/21 Sleep Information Total Hours of Sleep: 5.00 Meal Information Percent of Breakfast Consumed: 100 Percent of Lunch Consumed: 90 Percent of Dinner Consumed: 100 Mental Status Exam During interview pt is: alert and oriented, cooperative Appearance: appropriately dressed, appropriately groomed Eye contact is: fair Motor behavior is: no abnormal motor movements Speech: normal in rate, rhythm & volume, other Affect: flat Mood is: other (neutral) Thought process: goal directed Thought content: other (auditory hallucinations) Suicidal thought are: denied Homicidal thoughts are: denied Hallucinations: auditory (admits to intermittant command hallucinations), denies visual Cognition: language grossly intact, other (impaired attention and memory) Intelligence estimated to be: consistent with level of education Insight: impaired Judgement: impaired Impression Still with auditory experiences, but less distinct. Invega Sustenna is not covered by his insurance, but we have applied to the [employer] to provide. We will not know the result until Wednesday. In the meanwhile, we have started po Haldol to test for tolerability with a plan to move to haldol decanoate if Sustenna not approved. Patient will have a 304 hearing Wednesday at 0930. Continued Inpatient Care The patient requires inpatient treatment due to the severity of his condition and inability to manipulate information in a reality based manner. 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 Fasting labs for monitoring on an atypical performed earlier this month during previous hospitalization and were WNLs. 10/18 - Increase risperidone to 1mg qam and 4mg qhs. Recommend MENDIOLA, which he is declining. Consta is nonformulary, but if he is willing could consider Sustenna , if approved by insurance. 10/19 - Continue risperidone, exploring options for MENDIOLA. Consta is nonformulary, and Sustenna is available at the hospital but not covered by his insurance. Attempting to get PA forms, but insurance company is closed due to holiday today. Consider filing for a 304 commitment and converting to outpatient commitment at discharge. Will need family meeting with both parents once he is able to tolerate it. 10/20 - Staff attempting to contact insurance company for prior auth forms for Sustenna. Continue risperidone in the interim. pole frame construction worker to contact parents and schedule family meeting to discuss challenges due to his lack of insight and unwillingness for treatment. 10/21 - Awaiting response from insurance [employer] re: Sustenna - Continue Risperdal 4 mg. HS f or now. - Family meeting held yesterday with both parents who are now talking together to consider options for housing and treatment - 304 hearing scheduled for Wednesday at 0930 10/22 - Invega Sustenna denied by insurance. Will explore MENDIOLA's that are covered. - Continue to explore disposition to [place] with father - Increase Artane to 5 mg. daily for akathisia 10/23 shift Risperdal to hs, still awaiting consideration for Invega trial as need for MENDIOLA, if denied likely to proceed with Haldol 10/24--patient agreeable to add low dose Haldol for residual symptoms pending outcome of MENDIOLA auth, Risperdal could then be switched to Invega if covered, if not will explore cause of Haldol decanoate. Will dose am and pm meal with Risperdal at hs. 10/25 -Continue haldol and rispderdal for now. Away decision on Sustenna tomorrow AM. (2) Noncompliance with medications injectable discussed last hospitalization and patient declined would benefit from case management social worker if stays in area, little support locally 10/18 - Consider 304 commitment to convert to outpatient commitment at discharge, given poor insight and compliance - Admits he did not go to therapy (Octavio at [facility]) or psychiatry appointments (Nataly Griffin at [facility]) that were arranged during last hospitalization 10/20 - File for 304 commitment. - Refer for outpatient case management, as will be discharged on a 304 commitment. 10/21 - [employer] insurance response re: Invega sustenna Discharge / Aftercare Planning Psychiatrist: Name: [facility] Therapist: Name: [facility] Visit Code E&M Code: 41844 Inventory Assets Strengths: both parents desire to play role in care, college graduate/previously employed Needs: increase insight into condition and treatment needs Risk Factors Assessment Male: Yes : No /single/: Yes Higher / Fall in social status: No Access to guns: No Health problems: No Mental Health Diagnoses: Yes Substance use disorders: No Previous attempt: No Previous psychiatric stay: Yes Protective Factors Assessment Yazidism beliefs: No : No Responsible for young children: No Employed: Yes Stable relationships: No Supportive family: Yes Data Vital Signs Last 24 Hrs: Date Time Temp Pulse Resp B/P Pulse Ox O2 Delivery O2 Flow Rate FiO2 10/25/16 06:47 36.5 65 16 104/67 82 112/72 Meds Administered Last 24 Hrs: Meds Administered (Past 24Hrs) Medications (Trade) Dose Ordered Sig/Gallito Route Start Time Stop Time Status Last Admin Dose Admin Risperidone (Risperdal Tab) 5 mg HS PO 10/23/16 22:00 11/22/16 21:59 10/24/16 21:04 5 MG Haloperidol (Haldol Tab) 1 mg BID17 PO 10/24/16 09:00 11/23/16 08:59 10/25/16 08:43 1 MG Lab Results Last 24 Hrs: 10/16/16 21:51 Red Blood Count 4.60, Mean Corpuscular Volume 88.0, Mean Corpuscular Hemoglobin 32.0, Mean Corpuscular Hemoglobin Concent 36.3, Mean Platelet Volume 9.7, Neutrophils (%) (Auto) 65.9, Lymphocytes (%) (Auto) 22.3, Monocytes (%) (Auto) 10.0, Eosinophils (%) (Auto) 1.2, Basophils (%) (Auto) 0.3, Neutrophils # (Auto ) 4.33, Lymphocytes # (Auto) 1.47, Monocytes # (Auto) 0.66, Eosinophils # (Auto ) 0.08, Basophils # (Auto) 0.02 10/16/16 21:51 Test 10/16/16 21:51 10/16/16 23:38 White Blood Count 6.58 K/uL (4.8-10.8) Red Blood Count 4.60 M/uL (4.7-6.1) Hemoglobin 14.7 g/dL (14.0-18.0) Hematocrit 40.5 % (42-52) Mean Corpuscular Volume 88.0 fL (80-100) Mean Corpuscular Hemoglobin 32.0 pg (25-34) Mean Corpuscular Hemoglobin Concent 36.3 g/dl (32-36) Platelet Count 220 K/uL (130-400) Mean Platelet Volume 9.7 fL (7.4-10.4) Neutrophils (%) (Auto) 65.9 % Lymphocytes (%) (Auto) 22.3 % Monocytes (%) (Auto) 10.0 % Eosinophils (%) (Auto) 1.2 % Basophils (%) (Auto) 0.3 % Neutrophils # (Auto) 4.33 K/uL (1.4-6.5) Lymphocytes # (Auto) 1.47 K/uL (1.2-3.4) Monocytes # (Auto) 0.66 K/uL (0.11-0.59) Eosinophils # (Auto) 0.08 K/uL (0-0.5) Basophils # (Auto) 0.02 K/uL (0-0.2) RDW Standard Deviation 41.4 fL (36.4-46.3) RDW Coefficient of Variation 13.0 % (11.5-14.5) Immature Granulocyte % (Auto) 0.3 % Immature Granulocyte # (Auto) 0.02 K/uL (0.00-0.02) Anion Gap 11.0 mmol/L (3-11) Est Creatinine Clear Calc Drug Dose 147.9 ml/min Estimated GFR () 147.5 Estimated GFR (Non- 127.2 BUN/Creatinine Ratio 11.8 (10-20) Calcium Level 9.0 mg/dl (8.5-10.1) Total Bilirubin 1.5 mg/dl (0.2-1) Direct Bilirubin 0.4 mg/dl (0-0.2) Aspartate Amino Transf (AST/SGOT) 30 U/L (15-37) Alanine Aminotransferase (ALT/SGPT) 33 U/L (12-78) Alkaline Phosphatase 61 U/L (45-117) Total Protein 7.3 gm/dl (6.4-8.2) Albumin 4.2 gm/dl (3.4-5.0) Globulin 3.1 gm/dl (2.5-4.0) Albumin/Globulin Ratio 1.4 (0.9-2) Thyroid Stimulating Hormone (TSH) 0.678 uIu/ml (0.300-4.500) Ethyl Alcohol mg/dL < 3.0 mg/dl (0-3) Urine Color DK YELLOW Urine Appearance CLOUDY (CLEAR) Urine pH 6.0 (4.5-7.5) Urine Specific [place] 1.024 (1.000-1.030) Urine Protein NEG (NEG) Urine Glucose (UA) NEG (NEG) Urine Ketones 1+ (NEG) Urine Occult Blood NEG (NEG) Urine Nitrite NEG (NEG) Urine Bilirubin NEG (NEG) Urine Urobilinogen NEG (NEG) Urine Leukocyte Esterase NEG (NEG) Urine WBC (Auto) 1-5 /hpf (0-5) Urine RBC (Auto) 0-4 /hpf (0-4) Urine Hyaline Casts (Auto) 5-10 /lpf (0-5) Urine Epithelial Cells (Auto) 20-30 /lpf (0-5) Urine Bacteria (Auto) NEG (NEG) Urine Opiates Screen NEG (NEG) Urine Methadone, Qualitative NEG (NEG) Urine Barbiturates NEG (NEG) Urine Phencyclidine (PCP) Level NEG (NEG) Ur Amphetamine/Methamphetamine NEG (NEG) MDMA (Ecstasy) Screen NEG (NEG) Urine Benzodiazepines Screen NEG (NEG) Urine Cocaine Metabolite NEG (NEG) Urine Marijuana (THC) NEG (NEG)
[2016-10-25] MEDS: RISPERIDONE 2 MG TAB PO SCH (21:18)
[2016-10-26 06:52] VITALS: BP_SYST 110; BP_SYST 126; BP_DIAS 65; BP_DIAS 76; PULSE 84; PULSE 95; TEMP 36.7
--- NOTE | 2016-10-26 08:05 | Psychiatric Progress Notes ---
Progress Note Date of Service Oct 26, 2016. Interval History 21 y/o single male who lives in [place] with a roommate, has a history of psychosis and noncompliance with treatment, who was just discharged from the [facility] on 10/09/16 and re-presented 10/16/16 with psychosis and disorganization and was admitted voluntarily, with a backup 302 petition from his father. He admits he did not attend outpatient appointments or take medications after discharge from the [facility], saying he doesn't think there is anything wrong with him. Chief Complaint "Same old same old". Subjective Patient was seen & assessed interval progress reviewed with Treatment Team. Staff report he is still responding to internal stimuli, talks to himself frequently, and has admitted to auditory command hallucinations, at times telling him not to take medication or care for himself. He is going to some groups, but is only able to attend briefly, often not able to participate or attend to stimuli. He was seen in his room this morning and again at his [facility] hearing. He says "the voices are fine, it's just strange, they showed up out of nowhere." He says the voices "guide me," and tell him "you have to do this, do that." He denies that they are currently telling him to hurt himself or anyone else, although he told staff last week that they were telling him to hurt people. He thinks medications are helping to "keep me on a good plane." He says he is in the hospital "for no good reason," and thinks he should "just go home and relax." He then says he will stay if that's recommended, because "I'm not the expert." He says he has "no idea" how he would provide for himself outside the hospital, and doesn't know how he could pay his rent, for heat, and food. He admits he has not been working for almost 2 months, "I probably don't have a job anymore." He thinks he could "just get a job, [employer] or something," and says he "really just needs to get some sleep." He says he'd like to go live with his father, but "I know he can't take me right now." Review of Systems Medication Side Effects: fatigue and restlessness 10/21 Sleep Information Total Hours of Sleep: 8.50 Meal Information Percent of Breakfast Consumed: 100 Percent of Lunch Consumed: 100 Percent of Dinner Consumed: 100 Mental Status Exam During interview pt is: alert and oriented, cooperative Appearance: appropriately dressed, disheveled (unkempt facial hair, malodorous) Eye contact is: fair Motor behavior is: no abnormal motor movements Speech: normal in rate, rhythm & volume Affect: flat Mood is: other ("same old same old") Thought process: goal directed Thought content: other (auditory hallucinations) Suicidal thought are: denied Homicidal thoughts are: denied Hallucinations: auditory (admits to intermittant command hallucinations), denies visual Cognition: language grossly intact, other (impaired attention and memory) Intelligence estimated to be: consistent with level of education Insight: impaired Judgement: impaired Impression Still with auditory experiences, but less distinct. Invega Sustenna is not covered by his insurance, but we have applied to the pharmaceutical company. His insurance does not cover any long acting injectable antipsychotics. In the meanwhile, we have started po Haldol to test for tolerability with a plan to move to haldol decanoate if Sustenna not approved. Patient is on a 304 commitment as of today. Continued Inpatient Care The patient requires inpatient treatment due to the severity of his condition and inability to manipulate information in a reality based manner. 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 Fasting labs for monitoring on an atypical performed earlier this month during previous hospitalization and were WNLs. 10/18 - Increase risperidone to 1mg qam and 4mg qhs. Recommend MENDIOLA, which he is declining. Consta is nonformulary, but if he is willing could consider Sustenna , if approved by insurance. 10/19 - Continue risperidone, exploring options for MENDIOLA. Consta is nonformulary, and Sustenna is available at the hospital but not covered by his insurance. Attempting to get PA forms, but insurance company is closed due to holiday today. Consider filing for a 304 commitment and converting to outpatient commitment at discharge. Will need family meeting with both parents once he is able to tolerate it. 10/20 - Staff attempting to contact insurance company for prior auth forms for Sustenna. Continue risperidone in the interim. tail worker to contact parents and schedule family meeting to discuss challenges due to his lack of insight and unwillingness for treatment. 10/21 - Awaiting response from insurance company re: Cari - Continue Risperdal 4 mg. HS f or now. - Family meeting held yesterday with both parents who are now talking together to consider options for housing and treatment - 304 hearing scheduled for Wednesday at 0930 10/22 - Invega Sustenna denied by insurance. Will explore MENDIOLA's that are covered. - Continue to explore disposition to [place] with father - Increase Artane to 5 mg. daily for akathisia 10/23 - shift Risperdal to hs, still awaiting consideration for Invega trial as need for MENDIOLA, if denied likely to proceed with Haldol 10/24 -patient agreeable to add low dose Haldol for residual symptoms pending outcome of MENDIOLA auth, Risperdal could then be switched to Invega if covered, if not will explore cause of Haldol decanoate. Will dose am and pm meal with Risperdal at hs. 10/25 -Continue haldol and risperidone. Awaiting reply from drug company re: Cari. (2) Noncompliance with medications injectable discussed last hospitalization and patient declined would benefit from pillowcase cleaner if stays in area, little support locally 10/18 - Consider 304 commitment to convert to outpatient commitment at discharge, given poor insight and compliance - Admits he did not go to therapy (Octavio at [facility]) or psychiatry appointments (Nataly Griffin at [facility]) that were arranged during last hospitalization 10/20 - File for 304 commitment. - Refer for outpatient case management, as will be discharged on a 304 commitment. 10/21 - His insurance does not cover any long acting injectables. Exploring other mechanisms of getting medication (PAP?, coupons) Discharge / Aftercare Planning Psychiatrist: Name: [facility] Therapist: Name: [facility] Visit Code E&M Code: 96599 Inventory Assets Strengths: both parents desire to play role in care, college graduate/previously employed Needs: increase insight into condition and treatment needs Risk Factors Assessment Male: Yes : No /single/: Yes Higher / Fall in social status: No Access to guns: No Health problems: No Mental Health Diagnoses: Yes Substance use disorders: No Previous attempt: No Previous psychiatric stay: Yes Protective Factors Assessment Catholic beliefs: No : No Responsible for young children: No Employed: Yes Stable relationships: No Supportive family: Yes Data Vital Signs Last 24 Hrs: Date Time Temp Pulse Resp B/P Pulse Ox O2 Delivery O2 Flow Rate FiO2 10/26/16 06:52 36.7 84 16 110/65 95 126/76 Meds Administered Last 24 Hrs: Meds Administered (Past 24Hrs) Medications (Trade) Dose Ordered Sig/Gallito Route Start Time Stop Time Status Last Admin Dose Admin Haloperidol (Haldol Tab) 1 mg BID17 PO 10/24/16 09:00 11/23/16 08:59 10/25/16 17:15 1 MG
[2016-10-26] MEDS: HALOPERIDOL 1 MG TAB PO SCH ×2 (08:16→17:23)
[2016-10-26] MEDS: TRIHEXYPHENIDYL HCL 2 MG TAB PO SCH (08:16)
[2016-10-26] MEDS: RISPERIDONE 2 MG TAB PO SCH (21:12)
[2016-10-27 06:34] VITALS: BP_SYST 100; BP_SYST 111; BP_DIAS 61; BP_DIAS 72; PULSE 101; PULSE 65; TEMP 36.7
[2016-10-27] MEDS: TRIHEXYPHENIDYL HCL 2 MG TAB PO SCH (08:28)
[2016-10-27] MEDS: HALOPERIDOL 1 MG TAB PO SCH ×2 (08:28→17:27)
--- NOTE | 2016-10-27 12:16 | Psychiatric Progress Notes ---
Progress Note Date of Service Oct 27, 2016. Interval History 21 y/o single male who lives in [place] with a roommate, has a history of psychosis and noncompliance with treatment, who was just discharged from the [facility] on 10/09/16 and re-presented 10/16/16 with psychosis and disorganization and was admitted voluntarily, with a backup 302 petition from his father. He admits he did not attend outpatient appointments or take medications after discharge from the [facility], saying he doesn't think there is anything wrong with him. Chief Complaint "I just had to get out for a minute". Subjective Patient was seen & assessed interval progress reviewed with nursing. Staff report he continues to respond to internal stimuli, and in group was making odd hand gestures and had a blank stare. He was able to answer questions, but would quickly revert to making hand gestures. He is reporting good mood and says he is "getting better and soon ready for discharge". His mother called twice last evening and patient refused her call both times. She had told the social insurance analyst she was looking into fdc treatment facilities in the [place] area. The patient did talk to his father on the phone, which appeared to go well. Today he was seen on the unit, where he was pacing in the halls. He says he is trying to go to groups, but sometimes has to leave as he feels restless and can't focus. He denies feeling depressed and says his mood is good. He remains uncertain about his discharge plans, saying he'd like to go live with his father, but says his father told him "he has some issues, some stuff to talk to me about." He continues to hear voices, denies that they are telling him to hurt himself or anyone else. Review of Systems Medication Side Effects: fatigue and restlessness 10/21 Sleep Information Total Hours of Sleep: 7.00 Meal Information Percent of Breakfast Consumed: 100 Percent of Lunch Consumed: 100 Percent of Dinner Consumed: 90 Mental Status Exam During interview pt is: alert and oriented, cooperative Appearance: appropriately dressed, other (limited grooming) Eye contact is: fair Motor behavior is: no abnormal motor movements Speech: normal in rate, rhythm & volume Affect: flat Mood is: other ("good") Thought process: goal directed Thought content: other (auditory hallucinations) Suicidal thought are: denied Homicidal thoughts are: denied Hallucinations: auditory (denies command hallucinations today), denies visual Cognition: language grossly intact, other (impaired attention and memory) Intelligence estimated to be: consistent with level of education Insight: impaired Judgement: impaired Impression Still with auditory experiences, but less distinct. Invega Sustenna is not covered by his insurance, but we have applied to the [employer] company. His insurance does not cover any long acting injectable antipsychotics. In the meanwhile, we have started po Haldol to test for tolerability with a plan to move to haldol decanoate if Sustenna not approved. Patient is on a 304 commitment as of today. Continued Inpatient Care The patient requires inpatient treatment due to the severity of his condition and inability to manipulate information in a reality based manner. 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 Fasting labs for monitoring on an atypical performed earlier this month during previous hospitalization and were WNLs. 10/18 - Increase risperidone to 1mg qam and 4mg qhs. Recommend MENDIOLA, which he is declining. Consta is nonformulary, but if he is willing could consider Sustenna , if approved by insurance. 10/19 - Continue risperidone, exploring options for MENDIOLA. Consta is nonformulary, and Sustenna is available at the hospital but not covered by his insurance. Attempting to get PA forms, but insurance company is closed due to holiday today. Consider filing for a 304 commitment and converting to outpatient commitment at discharge. Will need family meeting with both parents once he is able to tolerate it. 10/20 - Staff attempting to contact insurance company for prior auth forms for Sustenna. Continue risperidone in the interim. steel construction worker to contact parents and schedule family meeting to discuss challenges due to his lack of insight and unwillingness for treatment. 10/21 - Awaiting response from insurance company re: Sustenna - Continue Risperdal 4 mg. HS f or now. - Family meeting held yesterday with both parents who are now talking together to consider options for housing and treatment - 304 hearing scheduled for Wednesday at 0930 10/22 - Invega Sustenna denied by insurance. Will explore MENDIOLA's that are covered. - Continue to explore disposition to [place] with father - Increase Artane to 5 mg. daily for akathisia 10/23 - shift Risperdal to hs, still awaiting consideration for Invega trial as need for MENDIOLA, if denied likely to proceed with Haldol 10/24 -patient agreeable to add low dose Haldol for residual symptoms pending outcome of MENDIOLA auth, Risperdal could then be switched to Invega if covered, if not will explore cause of Haldol decanoate. Will dose am and pm meal with Risperdal at hs. 10/25 -Continue haldol and risperidone. Awaiting reply from drug company re: Sustenna. 10/27 - Awaiting reply fro drug company re: Sustenna. Once confirmed that he can get the medication, can start the injection (2) Noncompliance with medications injectable discussed last hospitalization and patient declined would benefit from case management assistant if stays in [facility], little support locally 10/18 - Consider 304 commitment to convert to outpatient commitment at discharge, given poor insight and compliance - Admits he did not go to therapy (Octavio at [facility]) or psychiatry appointments (Nataly Griffin at [facility]) that were arranged during last hospitalization 10/20 - File for 304 commitment. - Refer for outpatient case management, as will be discharged on a 304 commitment. 10/21 - His insurance does not cover any long acting injectables. Exploring other mechanisms of getting medication (PAP?, coupons) 10/27 - Explore disposition options - parents would like him to go to a treatment facility in [facility], unclear if this will be possible due to involuntary commitment in [place] and his refusal to return to the [place] area. Discharge / Aftercare Planning Psychiatrist: Name: [facility] Therapist: Name: [facility] Visit Code E&M Code: 57938 Inventory Assets Strengths: both parents desire to play role in care, college graduate/previously employed Needs: increase insight into condition and treatment needs Risk Factors Assessment Male: Yes : No /single/: Yes Higher / Fall in social status: No Access to guns: No Health problems: No Mental Health Diagnoses: Yes Substance use disorders: No Previous attempt: No Previous psychiatric stay: Yes Protective Factors Assessment Adventism beliefs: No : No Responsible for young children: No Employed: Yes Stable relationships: No Supportive family: Yes Data Vital Signs Last 24 Hrs: Date Time Temp Pulse Resp B/P Pulse Ox O2 Delivery O2 Flow Rate FiO2 10/27/16 06:34 36.7 65 16 100/61 101 111/72
[2016-10-27] MEDS: RISPERIDONE 2 MG TAB PO SCH (22:14)
[2016-10-28 06:49] VITALS: BP_SYST 104; BP_SYST 107; BP_DIAS 63; BP_DIAS 67; PULSE 74; PULSE 98; TEMP 36.5
[2016-10-28] MEDS: HALOPERIDOL 1 MG TAB PO SCH (07:57)
[2016-10-28] MEDS: TRIHEXYPHENIDYL HCL 2 MG TAB PO SCH (07:58)
--- NOTE | 2016-10-28 13:27 | Psychiatric Progress Notes ---
Progress Note Date of Service Oct 28, 2016. Interval History 21 y/o single male who lives in [place] with a roommate, has a history of psychosis and noncompliance with treatment, who was just discharged from the [facility] on 10/09/16 and re-presented 10/16/16 with psychosis and disorganization and was admitted voluntarily, with a backup 302 petition from his father. He admits he did not attend outpatient appointments or take medications after discharge from the [facility], saying he doesn't think there is anything wrong with him. Chief Complaint "I feel really good.". Subjective Patient was seen & assessed interval progress reviewed with Treatment Team. The patient says that his mood is really good today. He says that the voices continue but are indistinct, that he cannot make out what they are saying. I inform him that the Invega Cari has been approved through the patient assistance program and he is willing to move forward with the transition. He will not be able to live with his father, and he will not return to live with his father. he will continue to live here in an apartment with a roommate, and agrees to have a meeting with his roommate prior to discharge. he denies visual hallucinations or paranoia, saying that he feels safe here. he denies SI/HI. Nursing reports that although he attends group, he is quiet and passive in his participation. He does not spend much casual time in the dayroom with his peers. Review of Systems Constitutional: No chills, No fatigue, No fever, No problem reported, No sweats , No weakness, No weight loss ENT: No dental problems, No hearing loss, No nasal symptoms, No problem reported, No sore throat, No tinnitus, No trouble swallowing, No unusual epistaxis Respiratory: No cough, No dyspnea at rest, No dyspnea on exertion, No hemoptysis, No problem reported, No shortness of breath, No sputum, No wheezing Cardiovascular: No PND, No chest pain, No claudication, No edema, No orthopnea , No palpitations, No problem reported Abdomen: No GI bleeding, No constipation, No diarrhea, No nausea, No pain, No problem reported, No vomiting Musculoskeletal: No calf pain, No joint pain, No muscle pain, No problem reported, No swelling Neurologic: No balance problems, No memory loss, No numbness/tingling, No paralysis, No problem reported, No vertigo, No weakness Psychiatric: + problem reported (mood is good, aud hallucinations continue) Integumentary: No bleeding, No color change, No itch, No new/changing skin lesions, No problem reported, No rash Medication Side Effects: fatigue and restlessness 10/21 Sleep Information Total Hours of Sleep: 5.00 Meal Information Percent of Breakfast Consumed: 100 Percent of Lunch Consumed: 100 Percent of Dinner Consumed: 75 Mental Status Exam During interview pt is: alert and oriented, cooperative Appearance: appropriately dressed, appropriately groomed Eye contact is: good Motor behavior is: no abnormal motor movements Speech: normal in rate, rhythm & volume Affect: flat Mood is: other ("good") Thought process: goal directed Thought content: other (auditory hallucinations) Suicidal thought are: denied Homicidal thoughts are: denied Hallucinations: auditory (denies command hallucinations today), denies visual Cognition: language grossly intact, other (impaired attention and memory) Intelligence estimated to be: consistent with level of education Insight: impaired Judgement: impaired Impression Invega Sustenna has been approved through the pharmacy's patient assistance program. We will start 256 mg. IM today and 156 mg IM on day 4 with 117 mg monthly thereafter. We will work toward aftercare planning locally, since he will be unable and unwilling to go with either parent. 304 granted on 10/26 which will be converted to OP on discharged. Continued Inpatient Care The patient requires inpatient treatment due to the severity of his condition and inability to manipulate information in a reality based manner. 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 Fasting labs for monitoring on an atypical performed earlier this month during previous hospitalization and were WNLs. 10/18 - Increase risperidone to 1mg qam and 4mg qhs. Recommend MENDIOLA, which he is declining. Consta is nonformulary, but if he is willing could consider Sustenna , if approved by insurance. 10/19 - Continue risperidone, exploring options for MENDIOLA. Consta is nonformulary, and Sustenna is available at the hospital but not covered by his insurance. Attempting to get PA forms, but insurance company is closed due to holiday today. Consider filing for a 304 commitment and converting to outpatient commitment at discharge. Will need family meeting with both parents once he is able to tolerate it. 10/20 - Staff attempting to contact insurance company for prior auth forms for Sustenna. Continue risperidone in the interim. expeller worker to contact parents and schedule family meeting to discuss challenges due to his lack of insight and unwillingness for treatment. 10/21 - Awaiting response from insurance company re: Sustenna - Continue Risperdal 4 mg. HS f or now. - Family meeting held yesterday with both parents who are now talking together to consider options for housing and treatment - 304 hearing scheduled for Wednesday at 0930 10/22 - Invega Sustenna denied by insurance. Will explore MENDIOLA's that are covered. - Continue to explore disposition to [place] with father - Increase Artane to 5 mg. daily for akathisia 10/23 - shift Risperdal to hs, still awaiting consideration for Invega trial as need for MENDIOLA, if denied likely to proceed with Haldol 10/24 -patient agreeable to add low dose Haldol for residual symptoms pending outcome of MENDIOLA auth, Risperdal could then be switched to Invega if covered, if not will explore cause of Haldol decanoate. Will dose am and pm meal with Risperdal at hs. 10/25 -Continue haldol and risperidone. Awaiting reply from drug company re: Sustenna. 10/27 - Awaiting reply fro drug company re: Sustenna. Once confirmed that he can get the medication, can start the injection 10/28 - Sustenna approved. Started 234 mg today and 156 on day 4 - DC Haldol and risperdal - Start Invega 6 mg. HS until Sustenna therapeutic - DC scheduled Artane and make it 5 mg. BID prn EPS - Arrange for local aftercare (2) Noncompliance with medications injectable discussed last hospitalization and patient declined would benefit from case folder if stays in area, little support locally 10/18 - Consider 304 commitment to convert to outpatient commitment at discharge, given poor insight and compliance - Admits he did not go to therapy (Octavio at [facility]) or psychiatry appointments (Nataly Griffin at [facility]) that were arranged during last hospitalization 10/20 - File for 304 commitment. - Refer for outpatient case management, as will be discharged on a 304 commitment. 10/21 - His insurance does not cover any long acting injectables. Exploring other mechanisms of getting medication (PAP?, coupons) 10/27 - Explore disposition options - parents would like him to go to a treatment facility in [facility], unclear if this will be possible due to involuntary commitment in [place] and his refusal to return to the [place] area. Discharge / Aftercare Planning Psychiatrist: Name: [facility] Therapist: Name: [facility] Visit Code E&M Code: 23055 Inventory Assets Strengths: both parents desire to play role in care, college graduate/previously employed Needs: increase insight into condition and treatment needs Risk Factors Assessment Male: Yes : No /single/: Yes Higher / Fall in social status: No Access to guns: No Health problems: No Mental Health Diagnoses: Yes Substance use disorders: No Previous attempt: No Previous psychiatric stay: Yes Protective Factors Assessment Taoism beliefs: No : No Responsible for young children: No Employed: Yes Stable relationships: No Supportive family: Yes Data Vital Signs Last 24 Hrs: Date Time Temp Pulse Resp B/P Pulse Ox O2 Delivery O2 Flow Rate FiO2 10/28/16 06:49 36.5 74 16 107/63 98 104/67 Meds Administered Last 24 Hrs: Current Inpatient Medications Medications (Trade) Dose Ordered Sig/Gallito Route Start Time Stop Time Status Last Admin Dose Admin Acetaminophen (Tylenol Tab) 650 mg Q4H PRN PO 10/17/16 10:30 11/16/16 10:29 Bismuth Subsalicylate (Kaopectate Liqd) 15 ml PRN PRN PO 10/17/16 10:30 11/16/16 10:29 Al Hydroxide/Mg Hydroxide (Maalox Susp) 30 ml Q4H PRN PO 10/17/16 10:30 11/16/16 10:29 Magnesium Hydroxide (Milk Of Magnesia Susp) 30 ml DAILY PRN PO 10/17/16 10:30 11/16/16 10:29 Sodium Chloride ([place] Nasal [place]) PRN PRN NA 10/17/16 10:30 11/16/16 10:29 Hydroxyzine HCl (Vistaril Tab) 50 mg HSZ PRN PO 10/17/16 10:30 11/16/16 10:29 Hydroxyzine HCl (Vistaril Tab) 25 mg Q4H PRN PO 10/17/16 10:30 11/16/16 10:29 Haloperidol (Haldol Tab) 5 mg Q4H PRN PO 10/17/16 10:30 11/16/16 10:29 Haloperidol Lactate (Haldol Inj) 5 mg Q4 PRN IM 10/17/16 10:30 11/16/16 10:29 Benztropine Mesylate (Cogentin Tab) 1 mg Q4H PRN PO 10/18/16 13:45 11/17/16 13:44 10/19/16 14:20 1 MG Paliperidone (Invega) 6 mg HS PO 10/28/16 22:00 11/27/16 21:59 UNV Paliperidone Palmitate (Invega Sustenna) 234 mg TODAY ONCE IM 10/28/16 13:15 10/28/16 13:16 UNV Paliperidone Palmitate (Invega Sustenna) 156 mg ONE ONCE IM 10/31/16 12:00 10/31/16 12:01 UNV Trihexyphenidyl HCl (Artane Tab) 5 mg BID PRN PO 10/28/16 13:15 11/27/16 13:14 UNV Lab Results Last 24 Hrs: 10/16/16 21:51 Red Blood Count 4.60, Mean Corpuscular Volume 88.0, Mean Corpuscular Hemoglobin 32.0, Mean Corpuscular Hemoglobin Concent 36.3, Mean Platelet Volume 9.7, Neutrophils (%) (Auto) 65.9, Lymphocytes (%) (Auto) 22.3, Monocytes (%) (Auto) 10.0, Eosinophils (%) (Auto) 1.2, Basophils (%) (Auto) 0.3, Neutrophils # (Auto ) 4.33, Lymphocytes # (Auto) 1.47, Monocytes # (Auto) 0.66, Eosinophils # (Auto ) 0.08, Basophils # (Auto) 0.02 10/16/16 21:51 Test 10/16/16 21:51 10/16/16 23:38 White Blood Count 6.58 K/uL (4.8-10.8) Red Blood Count 4.60 M/uL (4.7-6.1) Hemoglobin 14.7 g/dL (14.0-18.0) Hematocrit 40.5 % (42-52) Mean Corpuscular Volume 88.0 fL (80-100) Mean Corpuscular Hemoglobin 32.0 pg (25-34) Mean Corpuscular Hemoglobin Concent 36.3 g/dl (32-36) Platelet Count 220 K/uL (130-400) Mean Platelet Volume 9.7 fL (7.4-10.4) Neutrophils (%) (Auto) 65.9 % Lymphocytes (%) (Auto) 22.3 % Monocytes (%) (Auto) 10.0 % Eosinophils (%) (Auto) 1.2 % Basophils (%) (Auto) 0.3 % Neutrophils # (Auto) 4.33 K/uL (1.4-6.5) Lymphocytes # (Auto) 1.47 K/uL (1.2-3.4) Monocytes # (Auto) 0.66 K/uL (0.11-0.59) Eosinophils # (Auto) 0.08 K/uL (0-0.5) Basophils # (Auto) 0.02 K/uL (0-0.2) RDW Standard Deviation 41.4 fL (36.4-46.3) RDW Coefficient of Variation 13.0 % (11.5-14.5) Immature Granulocyte % (Auto) 0.3 % Immature Granulocyte # (Auto) 0.02 K/uL (0.00-0.02) Anion Gap 11.0 mmol/L (3-11) Est Creatinine Clear Calc Drug Dose 147.9 ml/min Estimated GFR () 147.5 Estimated GFR (Non- 127.2 BUN/Creatinine Ratio 11.8 (10-20) Calcium Level 9.0 mg/dl (8.5-10.1) Total Bilirubin 1.5 mg/dl (0.2-1) Direct Bilirubin 0.4 mg/dl (0-0.2) Aspartate Amino Transf (AST/SGOT) 30 U/L (15-37) Alanine Aminotransferase (ALT/SGPT) 33 U/L (12-78) Alkaline Phosphatase 61 U/L (45-117) Total Protein 7.3 gm/dl (6.4-8.2) Albumin 4.2 gm/dl (3.4-5.0) Globulin 3.1 gm/dl (2.5-4.0) Albumin/Globulin Ratio 1.4 (0.9-2) Thyroid Stimulating Hormone (TSH) 0.678 uIu/ml (0.300-4.500) Ethyl Alcohol mg/dL < 3.0 mg/dl (0-3) Urine Color DK YELLOW Urine Appearance CLOUDY (CLEAR) Urine pH 6.0 (4.5-7.5) Urine Specific [place] 1.024 (1.000-1.030) Urine Protein NEG (NEG) Urine Glucose (UA) NEG (NEG) Urine Ketones 1+ (NEG) Urine Occult Blood NEG (NEG) Urine Nitrite NEG (NEG) Urine Bilirubin NEG (NEG) Urine Urobilinogen NEG (NEG) Urine Leukocyte Esterase NEG (NEG) Urine WBC (Auto) 1-5 /hpf (0-5) Urine RBC (Auto) 0-4 /hpf (0-4) Urine Hyaline Casts (Auto) 5-10 /lpf (0-5) Urine Epithelial Cells (Auto) 20-30 /lpf (0-5) Urine Bacteria (Auto) NEG (NEG) Urine Opiates Screen NEG (NEG) Urine Methadone, Qualitative NEG (NEG) Urine Barbiturates NEG (NEG) Urine Phencyclidine (PCP) Level NEG (NEG) Ur Amphetamine/Methamphetamine NEG (NEG) MDMA (Ecstasy) Screen NEG (NEG) Urine Benzodiazepines Screen NEG (NEG) Urine Cocaine Metabolite NEG (NEG) Urine Marijuana (THC) NEG (NEG)
[2016-10-28] MEDS ORDERED: INVEGA SUSTENNA 234 MG/ML 1.5 ML SYR IM SCH (14:00)
[2016-10-28] MEDS ORDERED: TRIHEXYPHENIDYL HCL 5 MG TAB PO PRN (22:00)
[2016-10-28] MEDS ORDERED: TRIHEXYPHENIDYL HCL 2 MG TAB PO PRN (22:00)
[2016-10-28] MEDS: PALIPERIDONE 3 MG TABCR PO SCH (22:11)
[2016-10-29 06:48] VITALS: BP_SYST 94; BP_SYST 98; BP_DIAS 59; BP_DIAS 60; PULSE 63; PULSE 72; TEMP 36.6
--- NOTE | 2016-10-29 10:24 | Psychiatric Progress Notes ---
Progress Note Date of Service Oct 29, 2016. Interval History 21 y/o single male who lives in [place] with a roommate, has a history of psychosis and noncompliance with treatment, who was just discharged from the [facility] on 10/09/16 and re-presented 10/16/16 with psychosis and disorganization and was admitted voluntarily, with a backup 302 petition from his father. He admits he did not attend outpatient appointments or take medications after discharge from the [facility], saying he doesn't think there is anything wrong with him. Chief Complaint "It's calmed down a lot". Subjective Patient was seen & assessed interval progress reviewed with nursing. Staff report he is improving, is going to groups and appears more organized and able to focus, but still has to excuse himself at times, and isolates in his room between groups. He got his first Invega Sustenna shot yesterday and tolerated it well. His mother continues to look for residential and senior care treatment facilities, but the patient says he wants nothing to do with his mother, as she is involved in witchcraft and is "a bad mother." He became angry when staff attempted to talk to [place]. He says he'd like to go live with his father, but cannot due to his father's circumstances. He reports ongoing auditory hallucinations, but says they are less distinct, as he often cannot make out what the voices are saying, and are less distracting to him. He is vague when asked about visual hallucinations, saying "not really..." and was unable to clarify when asked. He said "I mostly hear things. " His sleep is "a lot better," and mood is "okay." Review of Systems Medication Side Effects: fatigue and restlessness 10/21 Sleep Information Total Hours of Sleep: 6.00 Meal Information Percent of Breakfast Consumed: 100 Percent of Lunch Consumed: 100 Percent of Dinner Consumed: 100 Mental Status Exam During interview pt is: alert and oriented, cooperative Appearance: appropriately dressed, appropriately groomed Eye contact is: fair Motor behavior is: steady gait & station, no abnormal motor movements Speech: normal in rate, rhythm & volume Affect: blunted Mood is: other ("okay") Thought process: goal directed Thought content: delusions (that mother is evil, involved in withcraft and black magic), other (auditory hallucinations) Suicidal thought are: denied Homicidal thoughts are: denied Hallucinations: auditory (denies command hallucinations today), denies visual Cognition: language grossly intact, other (impaired attention and memory, but improving) Intelligence estimated to be: consistent with level of education Insight: impaired Judgement: impaired Impression 304 granted on 10/26 which will be converted to OP on discharge if he stays local. Invega Sustenna has been approved through the drug [employer]'s patient assistance program. Initial 256 mg. loading dose given 10/28/16, and second 156 mg loading dose scheduled for 11/01. Discharge planning is challenging, as patient is refusing to return home to live with mother, insisting on staying locally where he has no supports. Continued Inpatient Care The patient requires inpatient treatment due to the severity of his condition and inability to manipulate information in a reality based manner. 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 Fasting labs for monitoring on an atypical performed earlier this month during previous hospitalization and were WNLs. 10/18 - Increase risperidone to 1mg qam and 4mg qhs. Recommend MENDIOLA, which he is declining. Consta is nonformulary, but if he is willing could consider Sustenna , if approved by insurance. 10/19 - Continue risperidone, exploring options for MENDIOLA. Consta is nonformulary, and Sustenna is available at the hospital but not covered by his insurance. Attempting to get PA forms, but insurance company is closed due to holiday today. Consider filing for a 304 commitment and converting to outpatient commitment at discharge. Will need family meeting with both parents once he is able to tolerate it. 10/20 - Staff attempting to contact insurance company for prior auth forms for Sustenna. Continue risperidone in the interim. foundry worker to contact parents and schedule family meeting to discuss challenges due to his lack of insight and unwillingness for treatment. 10/21 - Awaiting response from insurance company re: Sustenna - Continue Risperdal 4 mg. HS f or now. - Family meeting held yesterday with both parents who are now talking together to consider options for housing and treatment - 304 hearing scheduled for Wednesday at 0930 10/22 - Invega Sustenna denied by insurance. Will explore MENDIOLA's that are covered. - Continue to explore disposition to [place] with father - Increase Artane to 5 mg. daily for akathisia 10/23 - shift Risperdal to hs, still awaiting consideration for Invega trial as need for MENDIOLA, if denied likely to proceed with Haldol 10/24 -patient agreeable to add low dose Haldol for residual symptoms pending outcome of MENDIOLA auth, Risperdal could then be switched to Invega if covered, if not will explore cause of Haldol decanoate. Will dose am and pm meal with Risperdal at hs. 10/25 -Continue haldol and risperidone. Awaiting reply from drug company re: Sustenna. 10/27 - Awaiting reply fro drug company re: Sustenna. Once confirmed that he can get the medication, can start the injection 10/28 - Sustenna approved. Started 234 mg today and will get 156 mg on day 4 - NE Haldol and risperdal - Start Invega 6 mg. HS until Sustenna therapeutic (scheduled to stop on 11/01 ) - NE scheduled Artane and make it 5 mg. BID prn EPS - Arrange for local aftercare - will need case management referral and will be on outpatient 304 10/29 - to work on discharge planning, as will need embedded case manager and local support services. - Per patient's mother, may not be able to return to apartment, but he continues to refuse to return to mother's house. (2) Noncompliance with medications injectable discussed last hospitalization and patient declined would benefit from embedded case manager if stays in [facility], little support locally 10/18 - Consider 304 commitment to convert to outpatient commitment at discharge, given poor insight and compliance - Admits he did not go to therapy (Octavio at [facility]) or psychiatry appointments (Nataly Griffin at [facility]) that were arranged during last hospitalization 10/20 - File for 304 commitment. - Refer for outpatient case management, as will be discharged on a 304 commitment. 10/21 - His insurance does not cover any long acting injectables. Exploring other mechanisms of getting medication (PAP?, coupons) 10/27 - Explore disposition options - parents would like him to go to a treatment facility in [facility], unclear if this will be possible due to involuntary commitment [place]. 10/28 - Started long acting injectable antipsychotic. Discharge / Aftercare Planning Psychiatrist: Name: [facility] Therapist: Name: [facility] Visit Code E&M Code: 62463 Inventory Assets Strengths: both parents desire to play role in care, college graduate/previously employed Needs: increase insight into condition and treatment needs Risk Factors Assessment Male: Yes : No /single/: Yes Higher / Fall in social status: No Access to guns: No Health problems: No Mental Health Diagnoses: Yes Substance use disorders: No Previous attempt: No Previous psychiatric stay: Yes Protective Factors Assessment Methodist beliefs: No : No Responsible for young children: No Employed: Yes Stable relationships: No Supportive family: Yes Data Vital Signs Last 24 Hrs: Date Time Temp Pulse Resp B/P Pulse Ox O2 Delivery O2 Flow Rate FiO2 10/29/16 06:48 36.6 63 16 98/59 72 94/60 Meds Administered Last 24 Hrs: Meds Administered (Past 24Hrs) Medications (Trade) Dose Ordered Sig/Gallito Route Start Time Stop Time Status Last Admin Dose Admin Paliperidone (Invega) 6 mg HS PO 10/28/16 22:00 11/27/16 21:59 10/28/16 22:11 6 MG Paliperidone Palmitate (Invega Sustenna) 234 mg TODAY@1400 IM 10/28/16 14:00 10/28/16 16:00 DC 10/28/16 15:00 234 MG
[2016-10-29] MEDS ORDERED: INVEGA SUSTENNA 156 MG/ML 1 ML SYR IM SCH (12:00)
[2016-10-29] MEDS: PALIPERIDONE 3 MG TABCR PO SCH (21:58)
[2016-10-30 06:45] VITALS: BP_SYST 102; BP_SYST 128; BP_DIAS 61; BP_DIAS 72; PULSE 102; PULSE 72; TEMP 36.6
--- NOTE | 2016-10-30 11:46 | Psychiatric Progress Notes ---
Progress Note Date of Service Oct 30, 2016. Interval History 21 y/o single male who lives in [place] with a roommate, has a history of psychosis and noncompliance with treatment, who was just discharged from the [facility] on 10/09/16 and re-presented 10/16/16 with psychosis and disorganization and was admitted voluntarily, with a backup 302 petition from his father. He admits he did not attend outpatient appointments or take medications after discharge from the [facility], saying he doesn't think there is anything wrong with him. Chief Complaint "hallucinations are almost gone". Subjective Patient was seen & assessed interval progress reviewed with Treatment Team. Found out yesterday that his landlord will not allow him to return to his apartment. Ambivalent about living with mom but ultimately accepting of current plan for step down to IOP. Tolerated first injection for Invega. Review of Systems Psych: denies symptoms other than stated above Constitutional: fatigue Cardiovascular: denied GI: denied Neurologic: denied Medication Side Effects: fatigue and restlessness 10/21 Sleep Information Total Hours of Sleep: 6.50 Meal Information Percent of Breakfast Consumed: 100 Percent of Lunch Consumed: 100 Percent of Dinner Consumed: 100 Mental Status Exam During interview pt is: alert and oriented, cooperative Appearance: appropriately dressed, appropriately groomed Eye contact is: fair Motor behavior is: steady gait & station, no abnormal motor movements Speech: normal in rate, rhythm & volume Affect: blunted Mood is: other ("okay") Thought process: goal directed Thought content: reality based without delusions ( none verbalized) Suicidal thought are: denied Homicidal thoughts are: denied Hallucinations: auditory, denies visual Cognition: language grossly intact, other (impaired attention and memory, but improving) Intelligence estimated to be: consistent with level of education Insight: impaired Judgement: impaired Impression 304 granted on 10/26 which will be converted to OP on discharge if he stays local. Invega Sustenna has been approved through the drug company's patient assistance program. Initial 256 mg. loading dose given 10/28/16, and second 156 mg loading dose scheduled for 11/01. Discharge planning is challenging, as patient is refusing to return home to live with mother, insisting on staying locally where he has no supports. Continued Inpatient Care The patient requires inpatient treatment due to the severity of his condition and inability to manipulate information in a reality based manner. 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 Fasting labs for monitoring on an atypical performed earlier this month during previous hospitalization and were WNLs. 10/18 - Increase risperidone to 1mg qam and 4mg qhs. Recommend MENDIOLA, which he is declining. Consta is nonformulary, but if he is willing could consider Sustenna , if approved by insurance. 10/19 - Continue risperidone, exploring options for MENDIOLA. Consta is nonformulary, and Sustenna is available at the hospital but not covered by his insurance. Attempting to get PA forms, but insurance company is closed due to holiday today. Consider filing for a 304 commitment and converting to outpatient commitment at discharge. Will need family meeting with both parents once he is able to tolerate it. 10/20 - Staff attempting to contact insurance [employer] for prior auth forms for Sustenna. Continue risperidone in the interim. sprinkler worker to contact parents and schedule family meeting to discuss challenges due to his lack of insight and unwillingness for treatment. 10/21 - Awaiting response from insurance [employer] re: Sustenna - Continue Risperdal 4 mg. HS f or now. - Family meeting held yesterday with both parents who are now talking together to consider options for housing and treatment - 304 hearing scheduled for Wednesday at 0930 10/22 - Invega Sustenna denied by insurance. Will explore MENDIOLA's that are covered. - Continue to explore disposition to [place] with father - Increase Artane to 5 mg. daily for akathisia 10/23 - shift Risperdal to hs, still awaiting consideration for Invega trial as need for MENDIOLA, if denied likely to proceed with Haldol 10/24 -patient agreeable to add low dose Haldol for residual symptoms pending outcome of MENDIOLA auth, Risperdal could then be switched to Invega if covered, if not will explore cause of Haldol decanoate. Will dose am and pm meal with Risperdal at hs. 10/25 -Continue haldol and risperidone. Awaiting reply from drug company re: Sustenna. 10/27 - Awaiting reply fro drug company re: Sustenna. Once confirmed that he can get the medication, can start the injection 10/28 - Sustenna approved. Started 234 mg today and will get 156 mg on day 4 - NE Haldol and risperdal - Start Invega 6 mg. HS until Sustenna therapeutic (scheduled to stop on 11/01 ) - NE scheduled Artane and make it 5 mg. BID prn EPS - Arrange for local aftercare - will need case management referral and will be on outpatient 304 10/29 - SW to work on discharge planning, as will need immigration case manager and local support services. - Per patient's mother, may not be able to return to apartment, but he continues to refuse to return to mother's house. 10/30 --current disposition is for patient to attend [facility] out of [facility]/state so will not file for outpatient commitment at this time (2) Noncompliance with medications injectable discussed last hospitalization and patient declined would benefit from immigration case manager if stays in area, little support locally 10/18 - Consider 304 commitment to convert to outpatient commitment at discharge, given poor insight and compliance - Admits he did not go to therapy (Octavio at [facility]) or psychiatry appointments (Nataly Griffin at [facility]) that were arranged during last hospitalization 10/20 - File for 304 commitment. - Refer for outpatient case management, as will be discharged on a 304 commitment. 10/21 - His insurance does not cover any long acting injectables. Exploring other mechanisms of getting medication (PAP?, coupons) 10/27 - Explore disposition options - parents would like him to go to a treatment facility in [facility], unclear if this will be possible due to involuntary commitment in [place]. 10/28 - Started long acting injectable antipsychotic. Discharge / Aftercare Planning Psychiatrist: Name: [facility] Therapist: Name: [facility] Visit Code E&M Code: 63387 Inventory Assets Strengths: both parents desire to play role in care, college graduate/previously employed Needs: increase insight into condition and treatment needs Risk Factors Assessment Male: Yes : No /single/: Yes Higher / Fall in social status: No Access to guns: No Health problems: No Mental Health Diagnoses: Yes Substance use disorders: No Previous attempt: No Previous psychiatric stay: Yes Protective Factors Assessment Mosque beliefs: No : No Responsible for young children: No Employed: Yes Stable relationships: No Supportive family: Yes Data Vital Signs Last 24 Hrs: Date Time Temp Pulse Resp B/P Pulse Ox O2 Delivery O2 Flow Rate FiO2 10/30/16 06:45 36.6 72 16 102/61 102 128/72 Meds Administered Last 24 Hrs: Meds Administered (Past 24Hrs) Medications (Trade) Dose Ordered Sig/Gallito Route Start Time Stop Time Status Last Admin Dose Admin Paliperidone (Invega) 6 mg HS PO 10/28/16 22:00 11/01/16 11:00 10/29/16 21:58 6 MG Paliperidone Palmitate (Invega Sustenna) 234 mg TODAY@1400 IM 10/28/16 14:00 10/28/16 16:00 DC 10/28/16 15:00 234 MG
[2016-10-30] MEDS: PALIPERIDONE 3 MG TABCR PO SCH (21:19)
[2016-10-31 06:59] VITALS: BP_SYST 112; BP_SYST 98; BP_DIAS 62; BP_DIAS 75; PULSE 68; PULSE 86; TEMP 36.6
--- NOTE | 2016-10-31 10:15 | Psychiatric Progress Notes ---
Progress Note Date of Service Oct 31, 2016. Interval History 21 y/o single male who lives in [place] with a roommate, has a history of psychosis and noncompliance with treatment, who [facility] and re-presented 10/16/16 with psychosis and disorganization and was admitted voluntarily, with a backup 302 petition from his father. He admits he did not attend outpatient appointments or take medications after discharge from the [facility], saying he doesn't think there is anything wrong with him. Chief Complaint "tired this am". Subjective Patient was seen & assessed interval progress reviewed with nursing. Patient denies problems overnight and voiced good understanding of treatment plan for re : meds. Denies malik this am. Review of Systems Psych: denies symptoms other than stated above Constitutional: fatigue Cardiovascular: denied GI: denied Neurologic: denied Medication Side Effects: fatigue and restlessness 10/21 Sleep Information Total Hours of Sleep: 7.50 Meal Information Percent of Breakfast Consumed: 100 Percent of Lunch Consumed: 100 Percent of Dinner Consumed: 100 Mental Status Exam During interview pt is: alert and oriented, cooperative Appearance: appropriately dressed, appropriately groomed Eye contact is: fair Motor behavior is: steady gait & station, no abnormal motor movements Speech: normal in rate, rhythm & volume Affect: blunted Mood is: other ("tired") Thought process: clear, coherent Thought content: reality based without delusions ( none verbalized) Suicidal thought are: denied Homicidal thoughts are: denied Hallucinations: auditory, denies visual Cognition: language grossly intact, other (impaired attention and memory, but improving) Intelligence estimated to be: consistent with level of education Insight: impaired Judgement: impaired Impression 304 granted on 10/26 which will be converted to OP on discharge if he stays local. Invega Sustenna has been approved through the drug company's patient assistance program. Initial 256 mg. loading dose given 10/28/16, and second 156 mg loading dose scheduled for 11/01. Continued Inpatient Care The patient requires inpatient treatment due to the severity of his condition and inability to manipulate information in a reality based manner. 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 Fasting labs for monitoring on an atypical performed earlier this month during previous hospitalization and were WNLs. 10/18 - Increase risperidone to 1mg qam and 4mg qhs. Recommend MENDIOLA, which he is declining. Javier is nonformulary, but if he is willing could consider Sustenna , if approved by insurance. 10/19 - Continue risperidone, exploring options for MENDIOLA. Javier is nonformulary, and Sustenna is available at the hospital but not covered by his insurance. Attempting to get PA forms, but insurance company is closed due to holiday today. Consider filing for a 304 commitment and converting to outpatient commitment at discharge. Will need family meeting with both parents once he is able to tolerate it. 10/20 - Staff attempting to contact insurance [employer] for prior auth forms for Sustenna. Continue risperidone in the interim. mold release worker to contact parents and schedule family meeting to discuss challenges due to his lack of insight and unwillingness for treatment. 10/21 - Awaiting response from insurance [employer] re: Sustenna - Continue Risperdal 4 mg. HS f or now. - Family meeting held yesterday with both parents who are now talking together to consider options for housing and treatment - 304 hearing scheduled for Wednesday at 0930 10/22 - Invega Sustenna denied by insurance. Will explore MENDIOLA's that are covered. - Continue to explore disposition to [place] with father - Increase Artane to 5 mg. daily for akathisia 10/23 - shift Risperdal to hs, still awaiting consideration for Invega trial as need for MENDIOLA, if denied likely to proceed with Haldol 10/24 -patient agreeable to add low dose Haldol for residual symptoms pending outcome of MENDIOLA auth, Risperdal could then be switched to Invega if covered, if not will explore cause of Haldol decanoate. Will dose am and pm meal with Risperdal at hs. 10/25 -Continue haldol and risperidone. Awaiting reply from drug company re: Sustenna. 10/27 - Awaiting reply fro drug company re: Sustenna. Once confirmed that he can get the medication, can start the injection 10/28 - Sustenna approved. Started 234 mg today and will get 156 mg on day 4 - DC Haldol and risperdal - Start Invega 6 mg. HS until Sustenna therapeutic (scheduled to stop on 11/01 ) - DC scheduled Artane and make it 5 mg. BID prn EPS - Arrange for local aftercare - will need case management referral and will be on outpatient 304 10/29 - SW to work on discharge planning, as will need field nurse case manager and local support services. - Per patient's mother, may not be able to return to apartment, but he continues to refuse to return to mother's house. 10/30 --current disposition is for patient to attend [facility] out of county/state so will not file for outpatient commitment at this time (2) Noncompliance with medications injectable discussed last hospitalization and patient declined would benefit from field nurse case manager if stays in area, little support locally 10/18 - Consider 304 commitment to convert to outpatient commitment at discharge, given poor insight and compliance - Admits he did not go to therapy ([facility]avio at [facility]) or psychiatry appointments (Nataly Griffin at [facility]) that were arranged during last hospitalization 10/20 - File for 304 commitment. - Refer for outpatient case management, as will be discharged on a 304 commitment. 10/21 - His insurance does not cover any long acting injectables. Exploring other mechanisms of getting medication (PAP?, coupons) 10/27 - Explore disposition options - parents would like him to go to a treatment facility in [facility], unclear if this will be possible due to involuntary commitment in [place] and [place] to the [place] area. 10/28 - Started long acting injectable antipsychotic. Discharge / Aftercare Planning Psychiatrist: Name: [facility] Therapist: Name: [facility] Visit Code E&M Code: 91859 Inventory Assets Strengths: both parents desire to play role in care, college graduate/previously employed Needs: increase insight into condition and treatment needs Risk Factors Assessment Male: Yes : No /single/: Yes Higher / Fall in social status: No Access to guns: No Health problems: No Mental Health Diagnoses: Yes Substance use disorders: No Previous attempt: No Previous psychiatric stay: Yes Protective Factors Assessment Sabianist beliefs: No : No Responsible for young children: No Employed: Yes Stable relationships: No Supportive family: Yes Data Vital Signs Last 24 Hrs: Date Time Temp Pulse Resp B/P Pulse Ox O2 Delivery O2 Flow Rate FiO2 10/31/16 06:59 36.6 68 16 98/62 86 112/75
[2016-10-31] MEDS ORDERED: INVEGA SUSTENNA 156 MG/ML 1 ML SYR IM SCH (12:00)
[2016-10-31] MEDS: PALIPERIDONE 3 MG TABCR PO SCH (21:52)
[2016-11-01 07:02] VITALS: BP_SYST 110; BP_SYST 98; BP_DIAS 60; BP_DIAS 76; PULSE 71; PULSE 89; TEMP 36.8
[2016-11-01] MEDS ORDERED: INVEGA SUSTENNA 156 MG/ML 1 ML SYR IM SCH ×2 (12:00)
--- NOTE | 2016-11-01 15:29 | Psychiatric Progress Notes ---
Progress Note Date of Service Nov 01, 2016. Interval History 21 y/o single male who lives in [place] with a roommate, has a history of psychosis and noncompliance with treatment, who was just [facility] and re-presented 10/16/16 with psychosis and disorganization and was admitted voluntarily, with a backup 302 petition from his father. He admits he did not attend outpatient appointments or take medications after discharge from the [facility], saying he doesn't think there is anything wrong with him. Chief Complaint "Still feel tired". Subjective Patient was seen & assessed interval progress reviewed with nursing staff. Patient reports that he continues to feel tired but otherwise tolerating medications well. Denies any discomfort around injection site. He continues to have auditory hallucinations where voices are commenting on his thoughts. Denies any thoughts to harm himself or others. Review of Systems Psych: denies symptoms other than stated above Constitutional: Slept 7 hours. Decreased energy level. Appetite good. Cardiovascular: denied GI: denied Neurologic: denied Remainder of 10 body systems also reviewed and denied other than noted above. Medication Side Effects: fatigue and restlessness 10/21 Sleep Information Total Hours of Sleep: 7.00 Meal Information Percent of Breakfast Consumed: 100 Percent of Lunch Consumed: 100 Percent of Dinner Consumed: 100 Mental Status Exam During interview pt is: alert and oriented, cooperative Appearance: appropriately dressed, appropriately groomed Eye contact is: fair Motor behavior is: steady gait & station, no abnormal motor movements Speech: normal in rate, rhythm & volume Affect: blunted Mood is: other ("tired") Thought process: clear, coherent Thought content: reality based without delusions ( none verbalized) Suicidal thought are: denied Homicidal thoughts are: denied Hallucinations: auditory, denies visual Cognition: language grossly intact, other (impaired attention and memory, but improving) Intelligence estimated to be: consistent with level of education Insight: impaired Judgement: impaired Impression 304 granted on 10/26 which will be converted to OP on discharge if he stays local. Invega Sustenna has been approved through the drug company's patient assistance program. Initial 256 mg. loading dose given 10/28/16, and second 156 mg loading dose scheduled for 11/01. Continued Inpatient Care The patient requires inpatient treatment due to the severity of his condition and inability to manipulate information in a reality based manner. 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 Fasting labs for monitoring on an atypical performed earlier this month during previous hospitalization and were WNLs. 10/18 - Increase risperidone to 1mg qam and 4mg qhs. Recommend MENDIOLA, which he is declining. Consta is nonformulary, but if he is willing could consider Sustenna , if approved by insurance. 10/19 - Continue risperidone, exploring options for MENDIOLA. Consta is nonformulary, and Sustenna is available at the hospital but not covered by his insurance. Attempting to get PA forms, but insurance company is closed due to holiday today. Consider filing for a 304 commitment and converting to outpatient commitment at discharge. Will need family meeting with both parents once he is able to tolerate it. 10/20 - Staff attempting to contact insurance [email or web address] for prior auth forms for Sustenna. Continue risperidone in the interim. line up worker to contact parents and schedule family meeting to discuss challenges due to his lack of insight and unwillingness for treatment. 10/21 - Awaiting response from insurance [email or web address] re: Sustenna - Continue Risperdal 4 mg. HS f or now. - Family meeting held yesterday with both parents who are now talking together to consider options for housing and treatment - 304 hearing scheduled for Wednesday at 0930 10/22 - Invega Sustenna denied by insurance. Will explore MENDIOLA's that are covered. - Continue to explore disposition to [place] with father - Increase Artane to 5 mg. daily for akathisia 10/23 - shift Risperdal to hs, still awaiting consideration for Invega trial as need for MENDIOLA, if denied likely to proceed with Haldol 10/24 -patient agreeable to add low dose Haldol for residual symptoms pending outcome of MENDIOLA auth, Risperdal could then be switched to Invega if covered, if not will explore cause of Haldol decanoate. Will dose am and pm meal with Risperdal at hs. 10/25 -Continue haldol and risperidone. Awaiting reply from drug company re: Sustenna. 10/27 - Awaiting reply fro drug company re: Sustenna. Once confirmed that he can get the medication, can start the injection 10/28 - Sustenna approved. Started 234 mg today and will get 156 mg on day 4 - [place] Haldol and risperdal - Start Invega 6 mg. HS until Sustenna therapeutic (scheduled to stop on 11/01 ) - [place] scheduled Artane and make it 5 mg. BID prn EPS - Arrange for local aftercare - will need case management referral and will be on outpatient 304 10/29 - to work on discharge planning, as will need outpatient case manager and local support services. - Per patient's mother, may not be able to return to apartment, but he continues to refuse to return to mother's house. 10/30 --current disposition is for patient to attend [facility] out [facility] so will not file for outpatient commitment at this time 10/31 - Received second injection of Invega Sustenna (156mg ) today. - oral Invega stopped today (2) Noncompliance with medications injectable discussed last hospitalization and patient declined would benefit from [facility], little support locally 10/18 - Consider 304 commitment to convert to outpatient commitment at discharge, given poor insight and compliance - Admits he did not go to therapy (Octavio at [facility]) or psychiatry appointments (Nataly Griffin at [facility]) that were arranged during last hospitalization 10/20 - File for 304 commitment. - Refer for outpatient case management, as will be discharged on a 304 commitment. 10/21 - His insurance does not cover any long acting injectables. Exploring other mechanisms of getting medication (PAP?, coupons) 10/27 - Explore disposition options - parents would like him to go to a treatment facility in [facility], unclear if this will be possible due to involuntary commitment in [place] and his refusal to return to the [place] area. 10/28 - Started long acting injectable antipsychotic. Discharge / Aftercare Planning Psychiatrist: Name: [facility] Therapist: Name: [facility] Visit Code E&M Code: 76224 Inventory Assets Strengths: both parents desire to play role in care, college graduate/previously employed Needs: increase insight into condition and treatment needs Risk Factors Assessment Male: Yes : No /single/: Yes Higher / Fall in social status: No Access to guns: No Health problems: No Mental Health Diagnoses: Yes Substance use disorders: No Previous attempt: No Previous psychiatric stay: Yes Protective Factors Assessment Druze beliefs: No : No Responsible for young children: No Employed: Yes Stable relationships: No Supportive family: Yes Data Vital Signs Last 24 Hrs: Date Time Temp Pulse Resp B/P Pulse Ox O2 Delivery O2 Flow Rate FiO2 11/01/16 07:02 36.8 71 16 98/60 89 110/76 Meds Administered Last 24 Hrs: Meds Administered (Past 24Hrs) Medications (Trade) Dose Ordered Sig/Gallito Route Start Time Stop Time Status Last Admin Dose Admin Paliperidone Palmitate (Invega Sustenna) 156 mg TODAY@1200 IM 11/01/16 12:00 11/01/16 14:00 DC 11/01/16 12:12 156 MG
[2016-11-02 06:58] VITALS: BP_SYST 108; BP_SYST 109; BP_DIAS 66; BP_DIAS 71; PULSE 61; PULSE 82; TEMP 37
--- NOTE | 2016-11-02 13:27 | Psychiatric Progress Notes ---
Progress Note Date of Service Nov 02, 2016. Interval History 21 y/o single male who lives in [place] with a roommate, has a history of psychosis and noncompliance with treatment, who was just discharged from the [facility] on 10/09/16 and re-presented 10/16/16 with psychosis and disorganization and was admitted voluntarily, with a backup 302 petition from his father. He admits he did not attend outpatient appointments or take medications after discharge from the [facility], saying he doesn't think there is anything wrong with him. Chief Complaint "Fern' alright". Subjective Patient was seen & assessed interval progress reviewed with Treatment Team. Staff report he is going to groups, got his second Sustenna loading dose yesterday, and continues to report AH, although they are quieter. He was seen in his room today, where he was standing, pacing around. He says his mood is "ok " and he is ready for discharge tomorrow. He is disappointed that he could not go live with his father, saying "he couldn't swing it." He says he doesn't want to stay with his mother, but has no other choice, as his landlord told him he cannot return to his apartment in [place]. He is willing to attend the day program in [place] and to stay with his mother, saying "I guess we can have a civil relationship." He denies SI, HI and command hallucinations. He continues to hear voices but says they are quieter, cannot make out what they are saying much of the time, and when he can understand them, they are commenting on his behaviors. He reports sedation which he thinks is from medication. He denies problems with sleep or appetite. Review of Systems Medication Side Effects: fatigue and restlessness 10/21 Sleep Information Total Hours of Sleep: 7.00 Meal Information Percent of Breakfast Consumed: 100 Percent of Lunch Consumed: 100 Percent of Dinner Consumed: 100 Mental Status Exam During interview pt is: alert and oriented, cooperative Appearance: appropriately dressed, appropriately groomed Eye contact is: fair Motor behavior is: steady gait & station, no abnormal motor movements, psychomotor agitation (pacing around room, won't sit down during interview) Speech: normal in rate, rhythm & volume Affect: blunted Mood is: other ("ok") Thought process: goal directed Thought content: reality based without delusions ( none verbalized) Suicidal thought are: denied Homicidal thoughts are: denied Hallucinations: auditory, denies visual Cognition: language grossly intact, other (impaired attention and memory, but improving) Intelligence estimated to be: consistent with level of education Insight: impaired Judgement: impaired Impression 304 granted on 10/26 which will be converted to OP on discharge if he stays local. Invega Sustenna has been approved through the drug [employer] patient assistance program. Initial 256 mg. loading dose given 10/28/16, and second 156 mg loading dose on 11/01. Continued Inpatient Care The patient requires inpatient treatment due to the severity of his condition and inability to manipulate information in a reality based manner. He is being picked up by his mother 11/03 and taken to a partial hospitalization program in the [place] area. 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 Fasting labs for monitoring on an atypical performed earlier this month during previous hospitalization and were WNLs. 10/18 - Increase risperidone to 1mg qam and 4mg qhs. Recommend MENDIOLA, which he is declining. Consta is nonformulary, but if he is willing could consider Sustenna , if approved by insurance. 10/19 - Continue risperidone, exploring options for MENDIOLA. Consta is nonformulary, and Sustenna is available at the hospital but not covered by his insurance. Attempting to get PA forms, but insurance company is closed due to holiday today. Consider filing for a 304 commitment and converting to outpatient commitment at discharge. Will need family meeting with both parents once he is able to tolerate it. 10/20 - Staff attempting to contact insurance company for prior auth forms for Sustenna. Continue risperidone in the interim. linotype worker to contact parents and schedule family meeting to discuss challenges due to his lack of insight and unwillingness for treatment. 10/21 - Awaiting response from insurance company re: Sustenna - Continue Risperdal 4 mg. HS f or now. - Family meeting held yesterday with both parents who are now talking together to consider options for housing and treatment - 304 hearing scheduled for Wednesday at 0930 10/22 - Invega Sustenna denied by insurance. Will explore MENDIOLA's that are covered. - Continue to explore disposition to [place] with father - Increase Artane to 5 mg. daily for akathisia 10/23 - shift Risperdal to hs, still awaiting consideration for Invega trial as need for MENDIOLA, if denied likely to proceed with Haldol 10/24 -patient agreeable to add low dose Haldol for residual symptoms pending outcome of MENDIOLA auth, Risperdal could then be switched to Invega if covered, if not will explore cause of Haldol decanoate. Will dose am and pm meal with Risperdal at hs. 10/25 -Continue haldol and risperidone. Awaiting reply from drug company re: Sustenna. 10/27 - Awaiting reply fro drug company re: Sustenna. Once confirmed that he can get the medication, can start the injection 10/28 - Sustenna approved. Started 234 mg today and will get 156 mg on day 4 - [place] Haldol and risperdal - Start Invega 6 mg. HS until Sustenna therapeutic (scheduled to stop on 11/01 ) - [place] scheduled Artane and make it 5 mg. BID prn EPS - Arrange for local aftercare - will need case management referral and will be on outpatient 304 10/29 - SW to work on discharge planning, as will need telephonic nurse case manager and local support services. - Per patient's mother, may not be able to return to apartment, but he continues to refuse to return to mother's house. 10/30 --current disposition is for patient to attend [facility] out of [facility]/state so will not file for outpatient commitment at this time 10/31 - Received second injection of Invega Sustenna (156mg ) today. - oral Invega stopped today 11/02 - Discharge planning for tomorrow - will be returning home to [place] to live with mother, and going to day treatment program (2) Noncompliance with medications injectable discussed last hospitalization and patient declined would benefit from telephonic nurse case manager if stays in [facility], little support locally 10/18 - Consider 304 commitment to convert to outpatient commitment at discharge, given poor insight and compliance - Admits he did not go to therapy (Octavio at [facility]) or psychiatry appointments (Nataly Griffin at [facility]) that were arranged during last hospitalization 10/20 - File for 304 commitment. - Refer for outpatient case management, as will be discharged on a 304 commitment. 10/21 - His insurance does not cover any long acting injectables. Exploring other mechanisms of getting medication (PAP?, coupons) 10/27 - Explore disposition options - parents would like him to go to a treatment facility in [place] area, unclear if this will be possible due to involuntary commitment in [place] and his refusal to return to the [place] area. 10/28 - Started long acting injectable antipsychotic. 11/01 - Got second dose of Sustenna, and oral meds stopped. Will be due for maintenance dose of 117mg IM in 4 weeks on 11/29 Discharge / Aftercare Planning Psychiatrist: Name: referral pending through IOP program at [facility] Appointment Notes: see psychiatrist 3 times per week Therapist: Name: [facility] through [facility] Partial Program Appointment Notes: after partial program then pt will have a therapist ( they will arrange Subscription Agent: Name: [facility] will determine the need for case management Partial or Psych Rehab: Name: [facility] Program in [facility]- Partial Hospitalizatio Date of Appointment: Nov 05, 2016 Time of Appointment: 6:00 pm Appointment Notes: go to [address] [place] - first day will be within 48 hrs Visit Code E&M Code: 55212 Inventory Assets Strengths: both parents desire to play role in care, college graduate/previously employed Needs: increase insight into condition and treatment needs Risk Factors Assessment Male: Yes : No /single/: Yes Higher / Fall in social status: No Access to guns: No Health problems: No Mental Health Diagnoses: Yes Substance use disorders: No Previous attempt: No Previous psychiatric stay: Yes Protective Factors Assessment Sabianism beliefs: No : No Responsible for young children: No Employed: Yes Stable relationships: No Supportive family: Yes Data Vital Signs Last 24 Hrs: Date Time Temp Pulse Resp B/P Pulse Ox O2 Delivery O2 Flow Rate FiO2 11/02/16 06:58 37.0 61 16 108/66 82 109/71 Meds Administered Last 24 Hrs: Meds Administered (Past 24Hrs) Medications (Trade) Dose Ordered Sig/Gallito Route Start Time Stop Time Status Last Admin Dose Admin Paliperidone Palmitate (Invega Sustenna) 156 mg TODAY@1200 IM 11/01/16 12:00 11/01/16 14:00 DC 11/01/16 12:12 156 MG
[2016-11-03 06:53] VITALS: BP_SYST 105; BP_SYST 121; BP_DIAS 68; BP_DIAS 82; PULSE 57; PULSE 90; TEMP 36.7
[2016-11-03] MEDS ORDERED: TRIH5TAB3 PO (11:05)
[2016-11-03] MEDS ORDERED: PALI117I IM (11:05)
--- NOTE | 2016-11-03 11:14 | Discharge Instructions ---
Discharge Information Report Includes Report will include the: Discharge Instructions & Summary Admission Admission Date / Time: Oct 17, 2016 at 11:13 Reason for Admission: Acute Psychosis Discharge Discharge Diagnosis / Problem: Psychosis NOS Condition at Discharge: Fair Discharge Goals Goal(s): Decrease discomfort, Improve disease control, Prevent Disease Progression Activity Recommendations Activity Limitations: resume your previous activity do not drive until you are alert enough to be safe. . Instructions / Follow-Up Instructions / Follow-Up . SPECIAL CARE INSTRUCTIONS: 1. Follow through with your scheduled aftercare appointments. If unable to keep an appointment, please call to reschedule. 2. Take your medication only as prescribed. Medication should not be changed or stopped without the approval of your doctor. In the event of worsening symptoms or concerns about side effects, contact your doctor immediately. 3. Utilize new healthy coping skills, anger management skills, and stress management skills learned during your hospitalization. Journal feelings and process them with a support person. Identify stressors or situations that may result in relapse, deterioration or inappropriate behaviors and develop a plan to deal with those issues. 4. If your coping skills are ineffective and you are in crisis, contact your outpatient providers for direction. If unable to reach your providers, please call the CAN HELP LINE AT or go to the closest Emergency Room. 5. Avoid alcohol and un-prescribed drugs. 6. You have been provided with the Mental Health Advance Directives Pamphlet for your review. AFTERCARE APPOINTMENTS: * Please call your insurance company prior to your scheduled appointment to confirm your aftercare providers are covered. Take your insurance information to your appointments. . Discharge / Aftercare Planning Primary Care Physician: Name: pt's mother will find a doctor Psychiatrist: Name: referral pending through IOP program at [facility] Appointment Notes: see psychiatrist 3 times per week Therapist: Name Of Therapist: Family and Individual Therapy through [facility] Partial Program Appointment Comments: after partial program then pt will have a therapist ( they will arrange Director Data Management: Name: [facility] will determine the need for case management Partial or Psych Rehab: Name: [facility] [place]- Partial Hospitalizatio Date Of Appointment: Nov 05, 2016 Time of Appointment: 6:00 pm Appointment Comments: go to [id number], [place] - first day will be within 48 hrs . Follow-Up Care Plan for Follow-Up Care: Follow up with evaluation for IOP on 11/05/16, will be moving home with mother. Current Hospital Diet Patient's current hospital diet: Regular Diet Discharge Diet Recommended Diet: Regular Diet Procedures Procedures Performed: No Pending Studies Pending Studies at Discharge: No Medical Emergencies . Who to Call and When: Medical Emergencies: For questions or emergencies related to your hospital stay, please contact the Inpatient Behavioral Health Unit at [phone]. A spline rolling machine job setter is on-call 26/04 for the Behavioral Health Unit for emergencies At any time you feel your situation is an emergency, you may also call 911 immediately. . Non-Emergent Contact Non-Emergency issues call your: Primary Care Provider, Psychiatrist, Therapist Advance Directives Existing Advance Directive: No Do You Have an Existing Mental: No Existing Living Will: No Existing Power of Feeder Operator Automatic: No Advance Directives Info Given: To Pt/S.O. Discharge Summary Admission HPI Per the Admitting provider: Darnell was admitted to the behavioral health unit from 09/25/16-10/09/16 for disorganized and threatening behavior toward his mother. He was somewhat religiously preoccupied believing that his mother was the devil and also preoccupied with his grandmother's (she passed when he was 8 yo). Initially he exhibited periods of psychomotor restlessness with nonsensical speech/talking to himself and hand gestures. His 201 commitment was converted to a 302 when he refused to rescind a 72 hour notice and was still exhibiting psychosis on his Risperdal trial. A 303 was ultimately granted. He was discharged on 4 mg of Risperdal with plan for outpatient follow-up at [facility] on 10/12/16. Appointments cannot be confirmed as offices closed for weekend. He states that he kept at least 1 of these appointments and was taking his medications regularly but his father reported to the ED that he has had gradual decline per roommates since discharge. There are reports he may have been drinking beer and father did not believe he was taking his medication regularly. All the patient can tell me at this time is that he was not able to get back to work, "can we please stop now? ". Tired appearing following 2 mg of Risperdal in ED but denies EPS and there is no evidence of abnormal motor movements. 302 petitioning statement remains on file from father should patient attempt to sign out again as he has been seen talking to himself when alone in his room or out in front of the rental house. He appears to be neglecting his personal hygiene and they worry he may not be eating and drinking regularly. Violence to self in past 6 months--none reported Violence toward others in past 6 months--threatening toward mother due to paranoia prior to last stay Admission Exam Per the Admitting provider: Please see attached H&P Hospital Course (1) Schizophreniform disorder resume Risperdal 4 mg po qhs, all patient is agreeing to at this time with Haldol prn introduced concept of injectable medication, possible switch to Invega for conversion to monthly injection. Fasting labs for monitoring on an atypical performed earlier this month during previous hospitalization and were WNLs. 10/18 - Increase risperidone to 1mg qam and 4mg qhs. Recommend MENDIOLA, which he is declining. Consta is nonformulary, but if he is willing could consider Sustenna , if approved by insurance. 10/19 - Continue risperidone, exploring options for MENDIOLA. Consta is nonformulary, and Sustenna is available at the hospital but not covered by his insurance. Attempting to get PA forms, but insurance company is closed due to holiday today. Consider filing for a 304 commitment and converting to outpatient commitment at discharge. Will need family meeting with both parents once he is able to tolerate it. 10/20 - Staff attempting to contact insurance company for prior auth forms for Sustenna. Continue risperidone in the interim. ditch worker to contact parents and schedule family meeting to discuss challenges due to his lack of insight and unwillingness for treatment. 10/21 - Awaiting response from insurance company re: Sustenna - Continue Risperdal 4 mg. HS f or now. - Family meeting held yesterday with both parents who are now talking together to consider options for housing and treatment - 304 hearing scheduled for Wednesday at 0930 10/22 - Invega Sustenna denied by insurance. Will explore MENDIOLA's that are covered. - Continue to explore disposition to [place] with father - Increase Artane to 5 mg. daily for akathisia 10/23 - shift Risperdal to hs, still awaiting consideration for Invega trial as need for MENDIOLA, if denied likely to proceed with Haldol 10/24 -patient agreeable to add low dose Haldol for residual symptoms pending outcome of MENDIOLA auth, Risperdal could then be switched to Invega if covered, if not will explore cause of Haldol decanoate. Will dose am and pm meal with Risperdal at hs. 10/25 -Continue haldol and risperidone. Awaiting reply from drug company re: Sustenna. 10/27 - Awaiting reply fro drug company re: Sustenna. Once confirmed that he can get the medication, can start the injection 10/28 - Sustenna approved. Started 234 mg today and will get 156 mg on day 4 - [place] Haldol and risperdal - Start Invega 6 mg. HS until Sustenna therapeutic (scheduled to stop on 11/01 ) - DC scheduled Artane and make it 5 mg. BID prn EPS - Arrange for local aftercare - will need case management referral and will be on outpatient 304 10/29 - SW to work on discharge planning, as will need nurse case manager and local support services. - Per patient's mother, may not be able to return to apartment, but he continues to refuse to return to mother's house. 10/30 --current disposition is for patient to attend [facility] out of [facility] so will not file for outpatient commitment at this time 10/31 - Received second injection of Invega Sustenna (156mg ) today. - oral Invega stopped today 11/02 - Discharge planning for tomorrow - will be returning home to [place] to live with mother, and going to day treatment program (2) Noncompliance with medications injectable discussed last hospitalization and patient declined would benefit from nurse case manager if stays in [facility], little support locally 10/18 - Consider 304 commitment to convert to outpatient commitment at discharge, given poor insight and compliance - Admits he did not go to therapy ([facility]) or psychiatry appointments (Nataly Griffin at [facility]) that were arranged during last hospitalization 10/20 - File for 304 commitment. - Refer for outpatient case management, as will be discharged on a 304 commitment. 10/21 - His insurance does not cover any long acting injectables. Exploring other mechanisms of getting medication (PAP?, coupons) 10/27 - Explore disposition options - parents would like him to go to a treatment facility in [facility], unclear if this will be possible due to involuntary commitment in [place] and his refusal to return to the [facility]. 10/28 - Started long acting injectable antipsychotic. 11/01 - Got second dose of Sustenna, and oral meds stopped. Will be due for maintenance dose of 117mg IM in 4 weeks on 11/29 Risk Factors Assessment Male: Yes : No /single/: Yes Higher / Fall in social status: No Access to guns: No Health problems: No Mental Health Diagnoses: Yes Substance use disorders: No Previous attempt: No Previous psychiatric stay: Yes Protective Factors Assessment Jew beliefs: No : No Responsible for young children: No Employed: Yes Stable relationships: No Supportive family: Yes Day of Discharge Assessment COURSE OF HOSPITALIZATION: During the patient's 17 day stay, he was initially continued on Risperdal with increasing doses however was agreeable to a long acting injectable and therefore converted to Invega Sustenna having had his first injection on October 29 and his second injection on November 01. Although his insurance would not approve a long-acting injectable, the staff hadn't approved through the patient assistance program with a pharmaceutical Cycle. We will make this information available to the patient to take with him to provide to his new outpatient provider. He became increasingly more honest during the hospitalization where during his last hospitalization in the beginning of this when he was trying to deny the auditory hallucinations. He eventually was more forthcoming saying that the voices would come and go, command him various things. They eventually minimized to the point that he was not always sure he could understand what they were saying. He did appear to be responding to internal stimuli at some points however, talking to himself and retreating to his room. He consistently stated that he did not want to move home with mother with a an ongoing delusion that his mother was evil. Both parents, although , were involved in his care. The patient had wanted to go stay with his father however that was not possible because the father did not have some place for him to stay. It wasn't until very late into his stay that we discovered that he would not be allowed back into his apartment and so at that point he was willing to return to his mother's house and attend an IOP in the [facility]. He is not happy about going back to her house as he sees this as a step backward. He was otherwise very cooperative with treatment , attended groups although had little spontaneous participation. He denied suicidal thinking, denied visual hallucinations. DAY OF DISCHARGE ASSESSMENT: The patient is asking for discharge. His mother has driven from [place] to pick him up. He continues to report some sedation from the medications but believes that the voices are improved and "almost gone". He denies visual hallucinations, suicidal ideation or homicidal ideation. Today he is casually and appropriately dressed in a sweatshirt and scrub pants. Gait and station are within normal limits although slowed. Eye contact is minimal but appropriate. Speech is somewhat slowed and quiet. Thoughts are organized, goal-directed, without overt delusions. Recent and remote memory are intact per conversation. Intelligence is estimated to be average. Insight and judgment are improved over admission. Laboratory 10/16/16 21:51 Red Blood Count 4.60, Mean Corpuscular Volume 88.0, Mean Corpuscular Hemoglobin 32.0, Mean Corpuscular Hemoglobin Concent 36.3, Mean Platelet Volume 9.7, Neutrophils (%) (Auto) 65.9, Lymphocytes (%) (Auto) 22.3, Monocytes (%) (Auto) 10.0, Eosinophils (%) (Auto) 1.2, Basophils (%) (Auto) 0.3, Neutrophils # (Auto ) 4.33, Lymphocytes # (Auto) 1.47, Monocytes # (Auto) 0.66, Eosinophils # (Auto ) 0.08, Basophils # (Auto) 0.02 10/16/16 21:51 Test 10/16/16 21:51 10/16/16 23:38 White Blood Count 6.58 K/uL (4.8-10.8) Red Blood Count 4.60 M/uL (4.7-6.1) Hemoglobin 14.7 g/dL (14.0-18.0) Hematocrit 40.5 % (42-52) Mean Corpuscular Volume 88.0 fL (80-100) Mean Corpuscular Hemoglobin 32.0 pg (25-34) Mean Corpuscular Hemoglobin Concent 36.3 g/dl (32-36) Platelet Count 220 K/uL (130-400) Mean Platelet Volume 9.7 fL (7.4-10.4) Neutrophils (%) (Auto) 65.9 % Lymphocytes (%) (Auto) 22.3 % Monocytes (%) (Auto) 10.0 % Eosinophils (%) (Auto) 1.2 % Basophils (%) (Auto) 0.3 % Neutrophils # (Auto) 4.33 K/uL (1.4-6.5) Lymphocytes # (Auto) 1.47 K/uL (1.2-3.4) Monocytes # (Auto) 0.66 K/uL (0.11-0.59) Eosinophils # (Auto) 0.08 K/uL (0-0.5) Basophils # (Auto) 0.02 K/uL (0-0.2) RDW Standard Deviation 41.4 fL (36.4-46.3) RDW Coefficient of Variation 13.0 % (11.5-14.5) Immature Granulocyte % (Auto) 0.3 % Immature Granulocyte # (Auto) 0.02 K/uL (0.00-0.02) Anion Gap 11.0 mmol/L (3-11) Est Creatinine Clear Calc Drug Dose 147.9 ml/min Estimated GFR () 147.5 Estimated GFR (Non- 127.2 BUN/Creatinine Ratio 11.8 (10-20) Calcium Level 9.0 mg/dl (8.5-10.1) Total Bilirubin 1.5 mg/dl (0.2-1) Direct Bilirubin 0.4 mg/dl (0-0.2) Aspartate Amino Transf (AST/SGOT) 30 U/L (15-37) Alanine Aminotransferase (ALT/SGPT) 33 U/L (12-78) Alkaline Phosphatase 61 U/L (45-117) Total Protein 7.3 gm/dl (6.4-8.2) Albumin 4.2 gm/dl (3.4-5.0) Globulin 3.1 gm/dl (2.5-4.0) Albumin/Globulin Ratio 1.4 (0.9-2) Thyroid Stimulating Hormone (TSH) 0.678 uIu/ml (0.300-4.500) Ethyl Alcohol mg/dL < 3.0 mg/dl (0-3) Urine Color DK YELLOW Urine Appearance CLOUDY (CLEAR) Urine pH 6.0 (4.5-7.5) Urine Specific Mode 1.024 (1.000-1.030) Urine Protein NEG (NEG) Urine Glucose (UA) NEG (NEG) Urine Ketones 1+ (NEG) Urine Occult Blood NEG (NEG) Urine Nitrite NEG (NEG) Urine Bilirubin NEG (NEG) Urine Urobilinogen NEG (NEG) Urine Leukocyte Esterase NEG (NEG) Urine WBC (Auto) 1-5 /hpf (0-5) Urine RBC (Auto) 0-4 /hpf (0-4) Urine Hyaline Casts (Auto) 5-10 /lpf (0-5) Urine Epithelial Cells (Auto) 20-30 /lpf (0-5) Urine Bacteria (Auto) NEG (NEG) Urine Opiates Screen NEG (NEG) Urine Methadone, Qualitative NEG (NEG) Urine Barbiturates NEG (NEG) Urine Phencyclidine (PCP) Level NEG (NEG) Ur Amphetamine/Methamphetamine NEG (NEG) MDMA (Ecstasy) Screen NEG (NEG) Urine Benzodiazepines Screen NEG (NEG) Urine Cocaine Metabolite NEG (NEG) Urine Marijuana (THC) NEG (NEG) Total Time Total Time Spent (min): Greater than 30 minutes Total Time Included: examination of the patient, discharge planning, medication reconciliation, communication with other providers Tobacco Cessation at Discharge FDA approved Prescription: non-smoker
[2016-11-29] MEDS ORDERED: INVEGA SUSTENNA 117 MG/ML 0.75 ML SYR IM SCH (09:00)
== END 2016-11-03 11:45 | disposition home or self-care (01) | DRG 885 ==
LOC: EDBD 21:10 → C.EDA 21:11 → UNDOADMIN 10-17 10:20 → C.MHU 10-17 10:20 → CMPBEDREQ 10-17 11:44 → C.MHU 10-18 20:53
PROVIDERS: ADMIT Psychiatry & Neurology Psychiatry; ATTEND Psychiatry & Neurology Psychiatry
DX: F20.81 Schizophreniform disorder (principal); Z91.14 Patient's other noncompliance with medication regimen